=== PATIENT | male | born 1965 | race Two or more races ===

== ENCOUNTER 2016-09-10 15:12 | Emergency (ER) | payer MEDICAID ==
[~2016-09-10] VITALS: Ht 167.6 cm; Wt 110.0 kg
[2016-09-10 15:32] LABS: GLUCOSE,POINT OF CARE 210 MG/DL (70-110)
[2016-09-10 18:26] LABS: CALCIUM, TOTAL 7.5 mg/dL (8.8-10.5); CREATININE 4.12 mg/dL (0.60-1.30)
[2016-09-10] MEDS ORDERED: SODIUM POLYSTYRENE SULFONATE 15 GM/60 ML SUSPENSION BOTTLE PO ONE (20:15)
[2016-09-10] MEDS ORDERED: DEXTROSE 50%-WATER 25 GM/50 ML SYRINGE IVP ONE ×2 (20:15→21:00)
[2016-09-10] MEDS ORDERED: SODIUM BICARBONATE [ADULT] 8.4% 50 MEQ/50 ML SYRINGE IVP ONE (20:15)
[2016-09-10] MEDS ORDERED: CALCIUM GLUCONATE 1,000 MG in DEXTROSE 5%-WATER 50 ML IV ONE (20:15)
[2016-09-10] MEDS ORDERED: INSULIN REGULAR, HUMAN 100 UNITS/ML IVP ONE (20:15)
[2016-09-10 20:41] LABS: GLUCOSE COMMENT 1 Doctor Notified; GLUCOSE,POINT OF CARE 118 MG/DL (70-110)
[2016-09-10] MEDS ORDERED: ALBUTEROL SULFATE 5 MG/ML 20 ML NEB SOLN [BULK] NEB ONE (21:45)
[2016-09-10 22:12] LABS: GLUCOSE,POINT OF CARE 75 MG/DL (70-110)
[2016-09-10 22:35] LABS: CREATININE 4.13 mg/dL (0.60-1.30); POTASSIUM 5.6 mmol/L (3.5-5.1)
[2016-09-10 22:55] VITALS: BP 140/86
== END 2016-09-10 23:11 | disposition home or self-care (01) ==
LOC: EMS 15:14
DX: E87.5 Hyperkalemia (principal); E11.22 Type 2 diabetes mellitus with diabetic chronic kidney disease; N18.6 End stage renal disease; Z99.2 Dependence on renal dialysis; Z79.82 Long term (current) use of aspirin
CPT/HCPCS: 36415; 80048; 82962; 93005; 94640; 96365; 96375; 99285; J0610; J1815; J3490; J7060; J7611

== ENCOUNTER → 2016-09-10 | Outpatient (CLI) | payer MEDICAID ==
[~2016-09-10] MED LIST: AMLO-511 PO; ASPI81 PO; CARV12 PO; GLIP5 PO; LISI-662 PO; PRAV20TA4 PO; SITA100 PO
[2016-09-10 12:20] LABS: BASOPHILS # (AUTO) 0.03 K/uL (0.00-0.20); BASOPHILS % (AUTO) 0.4 % (0.0-2.0); EOSINOPHILS # (AUTO) 0.34 K/uL (0.00-0.70); EOSINOPHILS % (AUTO) 3.81 % (1.0-6.0); HEMATOCRIT 32.5 % (41-53); HEMOGLOBIN 10.7 g/dL (13.5-17.5); LYMPHOCYTES # (AUTO) 1.7 K/uL (1.0-4.8); LYMPHOCYTES % (AUTO) 18.2 % (22.0-44.0); MEAN CORPUSCULAR HEMOGLOBIN 29.2 pg (26.0-34.0); MEAN CORPUSCULAR VOLUME 88 fL (80-100); MONOCYTES # (AUTO) 0.6 K/uL (0.1-1.0); MONOCYTES % (AUTO) 6.4 % (2.0-9.0); NEUTROPHILS # (AUTO) 6.4 K/uL (1.8-7.7); NEUTROPHILS % (AUTO) 71.2 % (40.0-70.0); PLATELET COUNT (AUTO) 215 K/uL (150-450); RED BLOOD CELL COUNT(AUTO) 3.67 MIL/uL (4.50-5.90); RED CELL DISTRIBUTION WIDTH 15.6 % (11.5-14.5); WHITE BLOOD COUNT (AUTO) 9.1 K/uL (4.5-11.0)
[2016-09-10 13:00] LABS: ADD UA MICROSCOPIC YES; APPEARANCE,URINE CLEAR (CLEAR); GLUCOSE, URINE (UA) 250 mg/dL (NEGATIVE); KETONES,URINE NEGATIVE (NEGATIVE); LEUKOCYTE ESTERASE ,URINE NEGATIVE (NEGATIVE); OCCULT BLOOD,URINE MODERATE (NEGATIVE); PH,URINE 6.5 (5.0-8.0); PROTEIN,URINE SEE CONFIRM (NEGATIVE)
[2016-09-10 13:01] LABS: SULFOSALICYLIC ACID,URINE 4+ (Negative)
[2016-09-10 13:02] LABS: WBC,URINE 0-2 /HPF (0-5)
[2016-09-10 13:03] LABS: SQUAMOUS EPITHELIAL CELL,UR Few /LPF (None Seen)
[2016-09-10 13:40] LABS: ALBUMIN 1.8 g/dL (3.4-5.0); CALCIUM, TOTAL 7.7 mg/dL (8.8-10.5); CREATININE 3.84 mg/dL (0.60-1.30); MAGNESIUM 2.8 mg/dL (1.80-2.40); PHOSPHORUS 5.8 mg/dL (2.5-4.9)
[2016-09-10 13:56] LABS: POTASSIUM 6.1 mmol/L (3.5-5.1)
[2016-09-11 13:06] LABS: CREATININE, URINE (mALB) 77.9 mg/dL (Not Estab.)
== END | disposition home or self-care (01) ==
LOC: LABPV 09:25
PROVIDERS: ATTEND Internal Medicine Nephrology
DX: I12.9 Hypertensive chronic kidney disease with stage 1 through stage 4 chronic kidney disease, or unspecified chronic kidney disease (principal); N18.4 Chronic kidney disease, stage 4 (severe); E11.9 Type 2 diabetes mellitus without complications; B18.2 Chronic viral hepatitis C
CPT/HCPCS: 82043; 82570; 82728; 83540; 83550; 83735; 84156

== ENCOUNTER → 2016-10-10 | Outpatient (CLI) | payer MEDICAID ==
[2016-10-10 13:49] LABS: BASOPHILS # (AUTO) 0.04 K/uL (0.00-0.20); BASOPHILS % (AUTO) 0.4 % (0.0-2.0); EOSINOPHILS # (AUTO) 0.32 K/uL (0.00-0.70); EOSINOPHILS % (AUTO) 3.62 % (1.0-6.0); HEMATOCRIT 32.1 % (41-53); HEMOGLOBIN 10.7 g/dL (13.5-17.5); LYMPHOCYTES # (AUTO) 1.6 K/uL (1.0-4.8); LYMPHOCYTES % (AUTO) 17.5 % (22.0-44.0); MEAN CORPUSCULAR HEMOGLOBIN 29.4 pg (26.0-34.0); MEAN CORPUSCULAR HGB CONC 33.3 G/dL (31.0-37.0); MEAN CORPUSCULAR VOLUME 88 fL (80-100); MONOCYTES # (AUTO) 0.5 K/uL (0.1-1.0); MONOCYTES % (AUTO) 5.6 % (2.0-9.0); NEUTROPHILS # (AUTO) 6.5 K/uL (1.8-7.7); NEUTROPHILS % (AUTO) 72.9 % (40.0-70.0); PLATELET COUNT (AUTO) 214 K/uL (150-450); RED BLOOD CELL COUNT(AUTO) 3.64 MIL/uL (4.50-5.90); RED CELL DISTRIBUTION WIDTH 14.9 % (11.5-14.5)
[2016-10-10 14:00] LABS: APPEARANCE,URINE CLEAR (CLEAR); GLUCOSE, URINE (UA) 500 mg/dL (NEGATIVE); KETONES,URINE NEGATIVE (NEGATIVE); LEUKOCYTE ESTERASE ,URINE NEGATIVE (NEGATIVE); OCCULT BLOOD,URINE MODERATE (NEGATIVE); PH,URINE 6.5 (5.0-8.0); PROTEIN,URINE SEE CONFIRM (NEGATIVE)
[2016-10-10 14:03] LABS: HEMOGLOBIN A1C 6.5 % (4.5-6.2)
[2016-10-10 14:07] LABS: ADD UA MICROSCOPIC YES
[2016-10-10 14:08] LABS: ALBUMIN 1.6 g/dL (3.4-5.0); CALCIUM, TOTAL 7.7 mg/dL (8.8-10.5); CREATININE 5.11 mg/dL (0.60-1.30); MAGNESIUM 2.3 mg/dL (1.80-2.40); PHOSPHORUS 5.7 mg/dL (2.5-4.9); POTASSIUM 5.1 mmol/L (3.5-5.1)
[2016-10-10 14:11] LABS: SULFOSALICYLIC ACID,URINE 4+ (Negative); WBC,URINE 0-2 /HPF (0-5)
[2016-10-10 14:14] LABS: SQUAMOUS EPITHELIAL CELL,UR Rare /LPF (None Seen)
[2016-10-10 14:15] LABS: HYALINE CASTS, URINE 0-2 /LPF (None Seen)
[2016-10-11 18:18] LABS: CREATININE, URINE (mALB) 80.8 mg/dL (Not Estab.)
== END | disposition home or self-care (01) ==
LOC: LABPV 11:52
PROVIDERS: ATTEND Internal Medicine Nephrology
DX: I12.9 Hypertensive chronic kidney disease with stage 1 through stage 4 chronic kidney disease, or unspecified chronic kidney disease (principal); N18.4 Chronic kidney disease, stage 4 (severe); E11.22 Type 2 diabetes mellitus with diabetic chronic kidney disease; B18.2 Chronic viral hepatitis C
CPT/HCPCS: 82043; 82570; 83036; 83735; 84156

== ENCOUNTER → 2016-10-17 | Outpatient (CLI) | payer MEDICAID ==
[2016-10-17 12:06] LABS: ALBUMIN 1.6 g/dL (3.4-5.0); CALCIUM, TOTAL 7.5 mg/dL (8.8-10.5); CREATININE 4.51 mg/dL (0.60-1.30); MAGNESIUM 2.4 mg/dL (1.80-2.40); PHOSPHORUS 5.4 mg/dL (2.5-4.9); POTASSIUM 4.7 mmol/L (3.5-5.1)
== END | disposition home or self-care (01) ==
LOC: LABPV 10:56
PROVIDERS: ATTEND Internal Medicine Nephrology
DX: E11.22 Type 2 diabetes mellitus with diabetic chronic kidney disease (principal); I12.9 Hypertensive chronic kidney disease with stage 1 through stage 4 chronic kidney disease, or unspecified chronic kidney disease; N18.4 Chronic kidney disease, stage 4 (severe); B18.2 Chronic viral hepatitis C
CPT/HCPCS: 83735

== ENCOUNTER → 2016-10-23 | Outpatient (CLI) | payer MEDICAID ==
[2016-10-23 12:38] LABS: ALBUMIN 1.6 g/dL (3.4-5.0); CALCIUM, TOTAL 7.9 mg/dL (8.8-10.5); CREATININE 4.72 mg/dL (0.60-1.30); PHOSPHORUS 6.1 mg/dL (2.5-4.9); POTASSIUM 4.8 mmol/L (3.5-5.1)
== END | disposition home or self-care (01) ==
LOC: LABPV 11:20
PROVIDERS: ATTEND Internal Medicine Nephrology
DX: I12.9 Hypertensive chronic kidney disease with stage 1 through stage 4 chronic kidney disease, or unspecified chronic kidney disease (principal); N18.4 Chronic kidney disease, stage 4 (severe); E11.22 Type 2 diabetes mellitus with diabetic chronic kidney disease

== ENCOUNTER → 2016-11-24 | Outpatient (CLI) | payer MEDICAID ==
[2016-11-25 12:34] LABS: BASOPHILS % (AUTO) 0.3 % (0.0-2.0); EOSINOPHILS % (AUTO) 3.5 % (1.0-6.0); HEMATOCRIT 33.2 % (41-53); HEMOGLOBIN 10.6 g/dL (13.5-17.5); LYMPHOCYTES # (AUTO) 1.8 K/uL (1.0-4.8); LYMPHOCYTES % (AUTO) 17.8 % (22.0-44.0); MEAN CORPUSCULAR HEMOGLOBIN 28.3 pg (26.0-34.0); MEAN CORPUSCULAR HGB CONC 31.9 G/dL (31.0-37.0); MEAN CORPUSCULAR VOLUME 89 fL (80-100); MONOCYTES # (AUTO) 0.6 K/uL (0.1-1.0); MONOCYTES % (AUTO) 5.9 % (2.0-9.0); NEUTROPHILS # (AUTO) 7.1 K/uL (1.8-7.7); NEUTROPHILS % (AUTO) 72.5 % (40.0-70.0); PLATELET COUNT (AUTO) 268 K/uL (150-450); RED BLOOD CELL COUNT(AUTO) 3.74 MIL/uL (4.50-5.90); RED CELL DISTRIBUTION WIDTH 15.1 % (11.5-14.5); WHITE BLOOD COUNT (AUTO) 9.9 K/uL (4.5-11.0)
[2016-11-25 12:38] LABS: ALBUMIN 2.2 g/dL (3.4-5.0); CALCIUM, TOTAL 8.3 mg/dL (8.8-10.5); CREATININE 4.68 mg/dL (0.60-1.30); MAGNESIUM 2.4 mg/dL (1.80-2.40); PHOSPHORUS 5.7 mg/dL (2.5-4.9); POTASSIUM 4.9 mmol/L (3.5-5.1)
[2016-11-25 12:41] LABS: APPEARANCE,URINE CLEAR (CLEAR); GLUCOSE, URINE (UA) 250 mg/dL (NEGATIVE); KETONES,URINE NEGATIVE (NEGATIVE); LEUKOCYTE ESTERASE ,URINE NEGATIVE (NEGATIVE); OCCULT BLOOD,URINE SMALL (NEGATIVE); PROTEIN,URINE SEE CONFIRM (NEGATIVE)
[2016-11-25 12:47] LABS: ADD UA MICROSCOPIC YES
[2016-11-25 12:49] LABS: SULFOSALICYLIC ACID,URINE 4+ (Negative)
[2016-11-25 12:50] LABS: SQUAMOUS EPITHELIAL CELL,UR Few /LPF (None Seen)
== END | disposition home or self-care (01) ==
LOC: LABPV 10:41
PROVIDERS: ATTEND Internal Medicine Nephrology
DX: E11.9 Type 2 diabetes mellitus without complications (principal); I10 Essential (primary) hypertension; B18.2 Chronic viral hepatitis C
CPT/HCPCS: 82570; 82575; 83735; 84156

== ENCOUNTER → 2016-12-17 | Outpatient (CLI) | payer MEDICAID ==
[2016-12-17 11:27] LABS: ADD UA MICROSCOPIC YES; APPEARANCE,URINE CLEAR (CLEAR); GLUCOSE, URINE (UA) 250 mg/dL (NEGATIVE); KETONES,URINE NEGATIVE (NEGATIVE); LEUKOCYTE ESTERASE ,URINE NEGATIVE (NEGATIVE); OCCULT BLOOD,URINE MODERATE (NEGATIVE); PROTEIN,URINE SEE CONFIRM (NEGATIVE)
[2016-12-17 11:29] LABS: SULFOSALICYLIC ACID,URINE 4+ (Negative)
[2016-12-17 11:31] LABS: HYALINE CASTS, URINE 0-2 /LPF (None Seen); SQUAMOUS EPITHELIAL CELL,UR Few /LPF (None Seen); WBC,URINE 0-2 /HPF (0-5)
[2016-12-17 11:35] LABS: BASOPHILS % (AUTO) 0.2 % (0.0-2.0); EOSINOPHILS % (AUTO) 3.9 % (1.0-6.0); HEMATOCRIT 34.2 % (41-53); HEMOGLOBIN 11.6 g/dL (13.5-17.5); LYMPHOCYTES # (AUTO) 1.3 K/uL (1.0-4.8); LYMPHOCYTES % (AUTO) 14.4 % (22.0-44.0); MEAN CORPUSCULAR HEMOGLOBIN 30.1 pg (26.0-34.0); MEAN CORPUSCULAR HGB CONC 33.9 G/dL (31.0-37.0); MEAN CORPUSCULAR VOLUME 89 fL (80-100); MONOCYTES # (AUTO) 0.4 K/uL (0.1-1.0); MONOCYTES % (AUTO) 4.9 % (2.0-9.0); NEUTROPHILS % (AUTO) 76.6 % (40.0-70.0); PLATELET COUNT (AUTO) 236 K/uL (150-450); RED BLOOD CELL COUNT(AUTO) 3.85 MIL/uL (4.50-5.90); WHITE BLOOD COUNT (AUTO) 9.1 K/uL (4.5-11.0)
[2016-12-17 12:58] LABS: ALBUMIN 2.3 g/dL (3.4-5.0); CALCIUM, TOTAL 8.3 mg/dL (8.8-10.5); CREATININE 4.5 mg/dL (0.60-1.30); MAGNESIUM 2.7 mg/dL (1.80-2.40); PHOSPHORUS 5.5 mg/dL (2.5-4.9); POTASSIUM 5.8 mmol/L (3.5-5.1)
[2016-12-18 16:15] LABS: CREATININE, URINE (mALB) 74.1 mg/dL (Not Estab.)
== END | disposition home or self-care (01) ==
LOC: LABPV 09:34
PROVIDERS: ATTEND Internal Medicine Nephrology
DX: E11.9 Type 2 diabetes mellitus without complications (principal); I10 Essential (primary) hypertension; B18.2 Chronic viral hepatitis C
CPT/HCPCS: 82043; 82570; 83735; 84156

== ENCOUNTER → 2017-01-29 | Outpatient (CLI) | payer MEDICAID ==
[2017-01-29 15:30] LABS: BASOPHILS % (AUTO) 0.3 % (0.0-2.0); EOSINOPHILS % (AUTO) 2.6 % (1.0-6.0); HEMATOCRIT 29.5 % (41-53); HEMOGLOBIN 10.1 g/dL (13.5-17.5); LYMPHOCYTES # (AUTO) 1.9 K/uL (1.0-4.8); LYMPHOCYTES % (AUTO) 17.3 % (22.0-44.0); MEAN CORPUSCULAR HEMOGLOBIN 29.9 pg (26.0-34.0); MEAN CORPUSCULAR HGB CONC 34.2 G/dL (31.0-37.0); MEAN CORPUSCULAR VOLUME 88 fL (80-100); MONOCYTES # (AUTO) 0.6 K/uL (0.1-1.0); MONOCYTES % (AUTO) 5.6 % (2.0-9.0); NEUTROPHILS # (AUTO) 8.2 K/uL (1.8-7.7); NEUTROPHILS % (AUTO) 74.2 % (40.0-70.0); PLATELET COUNT (AUTO) 238 K/uL (150-450); RED BLOOD CELL COUNT(AUTO) 3.37 MIL/uL (4.50-5.90); RED CELL DISTRIBUTION WIDTH 14.3 % (11.5-14.5); WHITE BLOOD COUNT (AUTO) 11.1 K/uL (4.5-11.0)
[2017-01-29 15:39] LABS: APPEARANCE,URINE CLOUDY (CLEAR); GLUCOSE, URINE (UA) 500 mg/dL (NEGATIVE); KETONES,URINE NEGATIVE (NEGATIVE); LEUKOCYTE ESTERASE ,URINE NEGATIVE (NEGATIVE); OCCULT BLOOD,URINE SMALL (NEGATIVE); PROTEIN,URINE SEE CONFIRM (NEGATIVE)
[2017-01-29 15:42] LABS: ADD UA MICROSCOPIC YES
[2017-01-29 15:53] LABS: ALBUMIN 2.6 g/dL (3.4-5.0); CALCIUM, TOTAL 8.3 mg/dL (8.8-10.5); CREATININE 5.2 mg/dL (0.60-1.30); MAGNESIUM 2.5 mg/dL (1.80-2.40); PHOSPHORUS 5.5 mg/dL (2.5-4.9); POTASSIUM 5.1 mmol/L (3.5-5.1)
[2017-01-29 16:02] LABS: SULFOSALICYLIC ACID,URINE 3+ (Negative)
[2017-01-29 16:04] LABS: HYALINE CASTS, URINE 0-2 /LPF (None Seen)
[2017-01-29 16:05] LABS: SQUAMOUS EPITHELIAL CELL,UR Few /LPF (None Seen)
[2017-01-29 16:06] LABS: URINALYSIS COMMENT Moderate Sperm seen.
== END | disposition home or self-care (01) ==
LOC: LABPV 14:01
PROVIDERS: ATTEND Internal Medicine Nephrology
DX: E11.22 Type 2 diabetes mellitus with diabetic chronic kidney disease (principal); I12.9 Hypertensive chronic kidney disease with stage 1 through stage 4 chronic kidney disease, or unspecified chronic kidney disease; N18.4 Chronic kidney disease, stage 4 (severe)
CPT/HCPCS: 83735

== ENCOUNTER 2017-03-01 12:47 | Inpatient (IN) | payer MEDICAID ==
[~2017-03-01] VITALS: Ht 170.2 cm; Wt 119.0 kg
[2017-03-01 13:02] LABS: GLUCOSE,POINT OF CARE 303 MG/DL (70-110)
[2017-03-01 13:21] LABS: BASOPHILS % (AUTO) 0.3 % (0.0-2.0); EOSINOPHILS % (AUTO) 2.8 % (1.0-6.0); LYMPHOCYTES # (AUTO) 1.4 K/uL (1.0-4.8); LYMPHOCYTES % (AUTO) 14.8 % (22.0-44.0); MEAN CORPUSCULAR HEMOGLOBIN 30.7 pg (26.0-34.0); MEAN CORPUSCULAR HGB CONC 34.3 G/dL (31.0-37.0); MEAN CORPUSCULAR VOLUME 89 fL (80-100); MONOCYTES # (AUTO) 0.4 K/uL (0.1-1.0); NEUTROPHILS # (AUTO) 7.7 K/uL (1.8-7.7); NEUTROPHILS % (AUTO) 78.1 % (40.0-70.0); PLATELET COUNT (AUTO) 210 K/uL (150-450); WHITE BLOOD COUNT (AUTO) 9.8 K/uL (4.5-11.0)
[2017-03-01 13:28] LABS: HEMOGLOBIN 5.2 g/dL (13.5-17.5)
[2017-03-01 13:29] LABS: HEMATOCRIT 15.2 % (41-53)
[2017-03-01 13:35] LABS: PROTHROMBIN TIME 10.3 SEC (9.4-11.6)
[2017-03-01 13:43] LABS: B-TYPE NATRIURETIC PEPTIDE 91 pg/mL (0-100)
[2017-03-01 13:59] LABS: ALANINE AMINOTRANSFERASE 18 U/L (12-78); ALBUMIN 2.4 g/dL (3.4-5.0); ANION GAP 11 mmol/L (8-16); ASPARTATE AMINOTRANSFERASE 14 U/L (15-37); BILIRUBIN,TOTAL 0.2 mg/dL (0.1-1.0); CALCIUM, TOTAL 7.5 mg/dL (8.8-10.5); CARBON DIOXIDE 22 mmol/L (22-29); CHLORIDE 104 mmol/L (98-107); CREATINE KINASE MB 3.5 ng/mL (0-5); CREATINE KINASE, TOTAL 253 U/L (39-308); CREATININE 4.52 mg/dL (0.60-1.30); GLOMERULAR FILTR. RATE CALC 14 mL/min (>60); SODIUM SERUM 137 mmol/L (136-145); UREA NITROGEN, BLOOD 60 mg/dL (7-18)
[2017-03-01 14:02] LABS: POTASSIUM 6.2 mmol/L (3.5-5.1)
[2017-03-01] MEDS ORDERED: SODIUM BICARBONATE [ADULT] 8.4% 50 MEQ/50 ML SYRINGE IVP ONE (14:30)
[2017-03-01] MEDS ORDERED: SODIUM POLYSTYRENE SULFONATE 15 GM/60 ML SUSPENSION BOTTLE PO ONE (14:30)
[2017-03-01] MEDS ORDERED: ALBUTEROL SULFATE 2.5 MG/0.5 ML NEB SOLUTION NEB ONE (14:30)
[2017-03-01] MEDS ORDERED: INSULIN REGULAR, HUMAN 100 UNITS/ML IVP ONE (14:30)
[2017-03-01 14:34] LABS: APPEARANCE,URINE CLEAR (CLEAR); GLUCOSE, URINE (UA) 500 mg/dL (NEGATIVE); KETONES,URINE NEGATIVE (NEGATIVE); LEUKOCYTE ESTERASE ,URINE NEGATIVE (NEGATIVE); OCCULT BLOOD,URINE TRACE (NEGATIVE); PROTEIN,URINE SEE CONFIRM (NEGATIVE)
[2017-03-01] MEDS ORDERED: 0.9% SODIUM CHLORIDE 5 ML NEB SOLUTION NEB ONE (14:43)
[2017-03-01 14:46] LABS: ADD UA MICROSCOPIC YES
[2017-03-01 14:47] LABS: SULFOSALICYLIC ACID,URINE 3+ (Negative)
[2017-03-01 14:48] LABS: COARSE GRANULAR CASTS,URINE 0-2 /LPF (None Seen); FINE GRANULAR CASTS,URINE 0-2 /LPF (None Seen); RBC,URINE 0-2 /HPF (0-2); SQUAMOUS EPITHELIAL CELL,UR Few /LPF (None Seen); WBC,URINE 0-2 /HPF (0-5)
[2017-03-01] MEDS ORDERED: PANTOPRAZOLE SODIUM 80 MG in SODIUM CHLORIDE 0.9% 50 ML IV ONE (17:30)
[2017-03-01] MEDS ORDERED: PANTOPRAZOLE SODIUM 80 MG in SODIUM CHLORIDE 0.9% 100 ML IV SCH (17:30)
[2017-03-01 17:35] VITALS: BP 109/51
[2017-03-01 17:50] VITALS: BP 137/67
[2017-03-01 18:05] VITALS: BP 130/70
[2017-03-01] MEDS ORDERED: ONDANSETRON HCL 4 MG/2 ML VIAL IVP PRN (18:30)
[2017-03-01] MEDS ORDERED: 0.9% SODIUM CHLORIDE 10 ML SYRINGE IVP PRN (18:30)
[2017-03-01] MEDS ORDERED: ACETAMINOPHEN 325 MG TABLET PO PRN (18:30)
[2017-03-01 20:16] VITALS: BP 112/61
[2017-03-01 23:48] VITALS: BP 129/77
[2017-03-02] VITALS (15 sets, daily range): BP systolic 134–184; BP diastolic 68–120
[2017-03-02] MEDS ORDERED: PROPOFOL 1% 20 ML VIAL IVP ONE (00:44)
[2017-03-02] MEDS ORDERED: ONDANSETRON HCL 4 MG/2 ML VIAL IVP PRN (01:00)
[2017-03-02] MEDS ORDERED: ACETAMINOPHEN 325 MG TABLET PO PRN (01:00)
[2017-03-02] MEDS ORDERED: IPRATROPIUM BROMIDE 0.5 MG/2.5 ML NEB SOLUTION NEB PRN (01:00)
[2017-03-02] MEDS ORDERED: MAGNESIUM HYDROXIDE SUSPENSION 30 ML UDCUP PO PRN (01:00)
[2017-03-02] MEDS ORDERED: HYDROCODONE/ACETAMINOPHEN 5-325 MG TABLET PO PRN (01:00)
[2017-03-02] MEDS ORDERED: BISACODYL 10 MG RECTAL RECTAL SUPPOSITORY PR PRN (01:00)
[2017-03-02] MEDS ORDERED: ALBUTEROL SULFATE 2.5 MG/0.5 ML NEB SOLUTION NEB PRN (01:00)
[2017-03-02] MEDS ORDERED: MORPHINE SULFATE 2 MG/ML SYRINGE IVP PRN (01:00)
[2017-03-02] MEDS ORDERED: ZOLPIDEM TARTRATE 5 MG TABLET PO PRN (01:00)
[2017-03-02] MEDS ORDERED: PNEUMOCOCCAL VACCINE POLYVALENT 0.5 ML VIAL [PPSV23] IM ONE (02:00)
[2017-03-02] MEDS ORDERED: PANTOPRAZOLE SODIUM 80 MG in SODIUM CHLORIDE 0.9% 100 ML IV SCH (03:30)
[2017-03-02] MEDS ORDERED: SODIUM CHLORIDE 0.9% 250 ML IV ONE (04:49)
[2017-03-02 06:06] LABS: BASOPHILS % (AUTO) 0.2 % (0.0-2.0); EOSINOPHILS % (AUTO) 1.9 % (1.0-6.0); LYMPHOCYTES # (AUTO) 1.4 K/uL (1.0-4.8); LYMPHOCYTES % (AUTO) 16.2 % (22.0-44.0); MEAN CORPUSCULAR HEMOGLOBIN 30.3 pg (26.0-34.0); MEAN CORPUSCULAR HGB CONC 33.8 G/dL (31.0-37.0); MEAN CORPUSCULAR VOLUME 90 fL (80-100); MONOCYTES # (AUTO) 0.5 K/uL (0.1-1.0); MONOCYTES % (AUTO) 5.6 % (2.0-9.0); NEUTROPHILS # (AUTO) 6.8 K/uL (1.8-7.7); NEUTROPHILS % (AUTO) 76.1 % (40.0-70.0); PLATELET COUNT (AUTO) 199 K/uL (150-450); RED BLOOD CELL COUNT(AUTO) 2.17 MIL/uL (4.50-5.90); RED CELL DISTRIBUTION WIDTH 15.1 % (11.5-14.5); WHITE BLOOD COUNT (AUTO) 8.9 K/uL (4.5-11.0)
[2017-03-02 06:18] LABS: ALBUMIN 2.5 g/dL (3.4-5.0); BILIRUBIN,TOTAL 0.3 mg/dL (0.1-1.0); CALCIUM, TOTAL 7.2 mg/dL (8.8-10.5); CREATININE 4.79 mg/dL (0.60-1.30)
[2017-03-02] MEDS ORDERED: GlipiZIDE 5 MG TABLET PO SCH (06:30)
[2017-03-02 06:42] LABS: HEMATOCRIT 19.4 % (41-53); HEMOGLOBIN 6.6 g/dL (13.5-17.5)
[2017-03-02] MEDS ORDERED: SitaGLIPtin PHOSPHATE 100 MG TABLET PO SCH (09:00)
[2017-03-02] MEDS ORDERED: PANTOPRAZOLE SODIUM 40 MG/VIAL IVP SCH (09:00)
[2017-03-02] MEDS: DOCUSATE SODIUM 100 MG CAPSULE PO SCH ×2 (09:00→21:08)
[2017-03-02 10:34] LABS: BASOPHILS # (AUTO) 0.02 K/uL (0.00-0.20); BASOPHILS % (AUTO) 0.2 % (0.0-2.0); EOSINOPHILS # (AUTO) 0.14 K/uL (0.00-0.70); EOSINOPHILS % (AUTO) 1.49 % (1.0-6.0); HEMOGLOBIN 7.2 g/dL (13.5-17.5); LYMPHOCYTES # (AUTO) 1.4 K/uL (1.0-4.8); LYMPHOCYTES % (AUTO) 15.5 % (22.0-44.0); MEAN CORPUSCULAR HEMOGLOBIN 30.5 pg (26.0-34.0); MEAN CORPUSCULAR HGB CONC 34.4 G/dL (31.0-37.0); MEAN CORPUSCULAR VOLUME 89 fL (80-100); MONOCYTES # (AUTO) 0.7 K/uL (0.1-1.0); MONOCYTES % (AUTO) 7.9 % (2.0-9.0); NEUTROPHILS # (AUTO) 6.9 K/uL (1.8-7.7); PLATELET COUNT (AUTO) 208 K/uL (150-450); RED BLOOD CELL COUNT(AUTO) 2.36 MIL/uL (4.50-5.90); RED CELL DISTRIBUTION WIDTH 14.9 % (11.5-14.5); WHITE BLOOD COUNT (AUTO) 9.2 K/uL (4.5-11.0)
[2017-03-02 10:37] LABS: HEMATOCRIT 20.9 % (41-53)
[2017-03-02] MEDS: LISINOPRIL 20 MG TABLET PO SCH (12:01)
[2017-03-02] MEDS: AmLODIPine BESYLATE 5 MG TABLET PO SCH (12:01)
[2017-03-02] MEDS ORDERED: SODIUM CHLORIDE 0.9% 1,000 ML IV ONE ×2 (13:30→13:38)
[2017-03-02] MEDS: DEXTROSE 5%-0.45% SODIUM CHL 1,000 ML IV SCH (14:10)
[2017-03-02] MEDS ORDERED: PRAVASTATIN SODIUM 20 MG TABLET PO SCH (21:00)
[2017-03-02] MEDS: PANTOPRAZOLE SODIUM 40 MG/VIAL IVP SCH (21:08)
[2017-03-03 00:13] VITALS: BP 167/90
[2017-03-03] MEDS: DEXTROSE 5%-0.45% SODIUM CHL 1,000 ML IV SCH (02:17)
[2017-03-03 05:24] VITALS: BP 154/93
[2017-03-03 05:51] LABS: BASOPHILS % (AUTO) 0.2 % (0.0-2.0); EOSINOPHILS % (AUTO) 2.7 % (1.0-6.0); HEMATOCRIT 22.2 % (41-53); HEMOGLOBIN 7.5 g/dL (13.5-17.5); LYMPHOCYTES # (AUTO) 1.5 K/uL (1.0-4.8); LYMPHOCYTES % (AUTO) 18.5 % (22.0-44.0); MEAN CORPUSCULAR HEMOGLOBIN 30.2 pg (26.0-34.0); MEAN CORPUSCULAR HGB CONC 33.8 G/dL (31.0-37.0); MEAN CORPUSCULAR VOLUME 89 fL (80-100); MONOCYTES # (AUTO) 0.5 K/uL (0.1-1.0); MONOCYTES % (AUTO) 6.5 % (2.0-9.0); NEUTROPHILS # (AUTO) 5.9 K/uL (1.8-7.7); NEUTROPHILS % (AUTO) 72.1 % (40.0-70.0); PLATELET COUNT (AUTO) 211 K/uL (150-450); RED BLOOD CELL COUNT(AUTO) 2.48 MIL/uL (4.50-5.90); RED CELL DISTRIBUTION WIDTH 15.4 % (11.5-14.5); WHITE BLOOD COUNT (AUTO) 8.2 K/uL (4.5-11.0)
[2017-03-03 06:08] LABS: ALBUMIN 2.4 g/dL (3.4-5.0); BILIRUBIN,TOTAL 0.2 mg/dL (0.1-1.0); CALCIUM, TOTAL 7.4 mg/dL (8.8-10.5); CREATININE 4.31 mg/dL (0.60-1.30); MAGNESIUM 2.9 mg/dL (1.80-2.40); PHOSPHORUS 5.9 mg/dL (2.5-4.9); POTASSIUM 5.2 mmol/L (3.5-5.1)
[2017-03-03 07:24] VITALS: BP 165/86
[2017-03-03] MEDS: AmLODIPine BESYLATE 5 MG TABLET PO SCH (08:13)
[2017-03-03] MEDS: LISINOPRIL 20 MG TABLET PO SCH (08:13)
[2017-03-03] MEDS: DOCUSATE SODIUM 100 MG CAPSULE PO SCH (08:14)
[2017-03-03] MEDS: PANTOPRAZOLE SODIUM 40 MG/VIAL IVP SCH (08:14)
[2017-03-03 12:02] VITALS: BP 162/82
[2017-03-03 15:10] VITALS: BP 169/81
[2017-03-03 20:12] LABS: GLUCOSE,POINT OF CARE 303 MG/DL (70-110)
[2017-03-05 04:52] LABS: GLUCOSE COMMENT 1 Received Meds; GLUCOSE,POINT OF CARE 77 MG/DL (70-110)
[2017-03-05 04:52] LABS: GLUCOSE,POINT OF CARE 62 MG/DL (70-110)
[2017-03-05 04:52] LABS: GLUCOSE COMMENT 1 Received Meds; GLUCOSE,POINT OF CARE 131 MG/DL (70-110)
== END 2017-03-03 16:00 | disposition home or self-care (01) | DRG 253 ==
LOC: EMS 12:48 → 5S 17:52
PROVIDERS: ADMIT Hospitalist; ATTEND Hospitalist
PROC: 30233N1 Transfusion of Nonautologous Red Blood Cells into Peripheral Vein, Percutaneous Approach (ICD-10-PCS; 2017-03-01)
PROC: 0DB68ZX Excision of Stomach, Via Natural or Artificial Opening Endoscopic, Diagnostic (ICD-10-PCS; principal; 2017-03-02 15:00)
DX: K92.2 Gastrointestinal hemorrhage, unspecified (principal); E43 Unspecified severe protein-calorie malnutrition; N18.6 End stage renal disease; E11.21 Type 2 diabetes mellitus with diabetic nephropathy; D50.0 Iron deficiency anemia secondary to blood loss (chronic); E87.5 Hyperkalemia; E11.22 Type 2 diabetes mellitus with diabetic chronic kidney disease; E11.319 Type 2 diabetes mellitus with unspecified diabetic retinopathy without macular edema; E11.65 Type 2 diabetes mellitus with hyperglycemia; E78.5 Hyperlipidemia, unspecified; I12.9 Hypertensive chronic kidney disease with stage 1 through stage 4 chronic kidney disease, or unspecified chronic kidney disease; Z87.891 Personal history of nicotine dependence; B19.20 Unspecified viral hepatitis C without hepatic coma; M54.30 Sciatica, unspecified side; K92.1 Melena; Z79.82 Long term (current) use of aspirin; Z79.899 Other long term (current) drug therapy; Z68.41 Body mass index [BMI] 40.0-44.9, adult
CPT/HCPCS: 82271; 82962; 83735; 84100; 86850; 86900; 86901; 86920; 88300; 88305; 88312; 90471; 93005; 94640; 96365; 96366; 96374; 96375; 99291; C9113; J1815; J2704; J3490; J7030; J7050; P9016

== ENCOUNTER → 2017-03-13 | Outpatient (CLI) | payer MEDICAID ==
[~2017-03-13] MED LIST changes: -ASPI81 PO
[2017-03-13 12:02] LABS: BASOPHILS % (AUTO) 0.3 % (0.0-2.0); EOSINOPHILS % (AUTO) 2.6 % (1.0-6.0); HEMATOCRIT 25.1 % (41-53); HEMOGLOBIN 8.4 g/dL (13.5-17.5); LYMPHOCYTES # (AUTO) 1.8 K/uL (1.0-4.8); LYMPHOCYTES % (AUTO) 18.9 % (22.0-44.0); MEAN CORPUSCULAR HEMOGLOBIN 30.2 pg (26.0-34.0); MEAN CORPUSCULAR HGB CONC 33.7 G/dL (31.0-37.0); MEAN CORPUSCULAR VOLUME 90 fL (80-100); MONOCYTES # (AUTO) 0.7 K/uL (0.1-1.0); NEUTROPHILS # (AUTO) 6.8 K/uL (1.8-7.7); NEUTROPHILS % (AUTO) 71.2 % (40.0-70.0); PLATELET COUNT (AUTO) 247 K/uL (150-450); RED CELL DISTRIBUTION WIDTH 14.8 % (11.5-14.5); WHITE BLOOD COUNT (AUTO) 9.6 K/uL (4.5-11.0)
[2017-03-13 12:29] LABS: ALBUMIN 2.5 g/dL (3.4-5.0); CALCIUM, TOTAL 8.1 mg/dL (8.8-10.5); CREATININE 4.3 mg/dL (0.60-1.30); MAGNESIUM 2.2 mg/dL (1.80-2.40); PHOSPHORUS 5.2 mg/dL (2.5-4.9); POTASSIUM 4.9 mmol/L (3.5-5.1)
== END | disposition home or self-care (01) ==
LOC: LABPV 10:21
PROVIDERS: ATTEND Internal Medicine Nephrology
DX: I12.9 Hypertensive chronic kidney disease with stage 1 through stage 4 chronic kidney disease, or unspecified chronic kidney disease (principal); E11.22 Type 2 diabetes mellitus with diabetic chronic kidney disease; N18.4 Chronic kidney disease, stage 4 (severe); B18.2 Chronic viral hepatitis C
CPT/HCPCS: 83735

== ENCOUNTER → 2017-03-25 | Outpatient (CLI) | payer MEDICAID ==
[2017-03-25 11:12] LABS: BASOPHILS # (AUTO) 0.02 K/uL (0.00-0.20); BASOPHILS % (AUTO) 0.2 % (0.0-2.0); HEMATOCRIT 25.7 % (41-53); HEMOGLOBIN 8.8 g/dL (13.5-17.5); LYMPHOCYTES # (AUTO) 1.6 K/uL (1.0-4.8); LYMPHOCYTES % (AUTO) 17.1 % (22.0-44.0); MEAN CORPUSCULAR HEMOGLOBIN 30.3 pg (26.0-34.0); MEAN CORPUSCULAR HGB CONC 34.1 G/dL (31.0-37.0); MEAN CORPUSCULAR VOLUME 89 fL (80-100); MONOCYTES # (AUTO) 0.6 K/uL (0.1-1.0); MONOCYTES % (AUTO) 6.8 % (2.0-9.0); NEUTROPHILS # (AUTO) 6.7 K/uL (1.8-7.7); NEUTROPHILS % (AUTO) 72.8 % (40.0-70.0); PLATELET COUNT (AUTO) 276 K/uL (150-450); RED BLOOD CELL COUNT(AUTO) 2.89 MIL/uL (4.50-5.90); RED CELL DISTRIBUTION WIDTH 14.4 % (11.5-14.5); WHITE BLOOD COUNT (AUTO) 9.2 K/uL (4.5-11.0)
[2017-03-25 11:14] LABS: APPEARANCE,URINE CLEAR (CLEAR); GLUCOSE, URINE (UA) 250 mg/dL (NEGATIVE); KETONES,URINE NEGATIVE (NEGATIVE); LEUKOCYTE ESTERASE ,URINE NEGATIVE (NEGATIVE); OCCULT BLOOD,URINE SMALL (NEGATIVE); PH,URINE 6.5 (5.0-8.0); PROTEIN,URINE SEE CONFIRM (NEGATIVE)
[2017-03-25 11:24] LABS: ADD UA MICROSCOPIC YES; WBC,URINE None Seen /HPF (0-5)
[2017-03-25 11:25] LABS: SULFOSALICYLIC ACID,URINE 3+ (Negative)
[2017-03-25 11:36] LABS: ALBUMIN 2.6 g/dL (3.4-5.0); BILIRUBIN,TOTAL 0.1 mg/dL (0.1-1.0); CALCIUM, TOTAL 8.4 mg/dL (8.8-10.5); CREATININE 4.4 mg/dL (0.60-1.30); MAGNESIUM 2.8 mg/dL (1.80-2.40); PHOSPHORUS 5.2 mg/dL (2.5-4.9); POTASSIUM 5.1 mmol/L (3.5-5.1)
[2017-03-26 12:16] LABS: CREATININE, URINE (mALB) 83.9 mg/dL (Not Estab.)
== END | disposition home or self-care (01) ==
LOC: LABPV 10:19
PROVIDERS: ATTEND Internal Medicine Nephrology
DX: E11.22 Type 2 diabetes mellitus with diabetic chronic kidney disease (principal); I12.9 Hypertensive chronic kidney disease with stage 1 through stage 4 chronic kidney disease, or unspecified chronic kidney disease; N18.4 Chronic kidney disease, stage 4 (severe); B18.2 Chronic viral hepatitis C
CPT/HCPCS: 82043; 82570; 83735; 84100

== ENCOUNTER → 2017-04-20 | Outpatient (CLI) | payer MEDICAID ==
[2017-04-20 12:29] LABS: BASOPHILS # (AUTO) 0.02 K/uL (0.00-0.20); BASOPHILS % (AUTO) 0.2 % (0.0-2.0); EOSINOPHILS # (AUTO) 0.22 K/uL (0.00-0.70); EOSINOPHILS % (AUTO) 2.28 % (1.0-6.0); HEMATOCRIT 27.3 % (41-53); HEMOGLOBIN 9.1 g/dL (13.5-17.5); LYMPHOCYTES # (AUTO) 1.3 K/uL (1.0-4.8); LYMPHOCYTES % (AUTO) 13.7 % (22.0-44.0); MEAN CORPUSCULAR HEMOGLOBIN 29.8 pg (26.0-34.0); MEAN CORPUSCULAR HGB CONC 33.2 G/dL (31.0-37.0); MEAN CORPUSCULAR VOLUME 90 fL (80-100); MONOCYTES # (AUTO) 0.3 K/uL (0.1-1.0); MONOCYTES % (AUTO) 3.4 % (2.0-9.0); NEUTROPHILS # (AUTO) 7.8 K/uL (1.8-7.7); NEUTROPHILS % (AUTO) 80.4 % (40.0-70.0); PLATELET COUNT (AUTO) 268 K/uL (150-450); RED BLOOD CELL COUNT(AUTO) 3.04 MIL/uL (4.50-5.90); RED CELL DISTRIBUTION WIDTH 14.6 % (11.5-14.5); WHITE BLOOD COUNT (AUTO) 9.8 K/uL (4.5-11.0)
== END | disposition home or self-care (01) ==
LOC: LABPV 11:12
PROVIDERS: ATTEND Internal Medicine Nephrology
DX: E11.22 Type 2 diabetes mellitus with diabetic chronic kidney disease (principal); I12.9 Hypertensive chronic kidney disease with stage 1 through stage 4 chronic kidney disease, or unspecified chronic kidney disease; N18.9 Chronic kidney disease, unspecified
CPT/HCPCS: 82728; 83540; 83550; 84466

== ENCOUNTER 2017-04-27 14:29 | Emergency (ER) | payer MEDICAID ==
[~2017-04-27] VITALS: Ht 170.2 cm; Wt 113.6 kg
[2017-04-27 14:52] LABS: GLUCOSE,POINT OF CARE 288 MG/DL (70-110)
[2017-04-27] MEDS ORDERED: ONDANSETRON HCL 4 MG/2 ML VIAL IVP ONE (17:15)
[2017-04-27] MEDS ORDERED: MORPHINE SULFATE 4 MG/ML SYRINGE IVP ONE (17:15)
[2017-04-27] MEDS ORDERED: HYDROmorphone 2 MG/ML SYRINGE IVP ONE (17:15)
[2017-04-27 17:21] LABS: BASOPHILS # (AUTO) 0.04 K/uL (0.00-0.20); BASOPHILS % (AUTO) 0.4 % (0.0-2.0); EOSINOPHILS # (AUTO) 0.23 K/uL (0.00-0.70); EOSINOPHILS % (AUTO) 2.49 % (1.0-6.0); HEMOGLOBIN 8.6 g/dL (13.5-17.5); LYMPHOCYTES # (AUTO) 1.7 K/uL (1.0-4.8); MEAN CORPUSCULAR HEMOGLOBIN 29.7 pg (26.0-34.0); MEAN CORPUSCULAR HGB CONC 33.3 G/dL (31.0-37.0); MEAN CORPUSCULAR VOLUME 89 fL (80-100); MONOCYTES # (AUTO) 0.4 K/uL (0.1-1.0); MONOCYTES % (AUTO) 4.3 % (2.0-9.0); NEUTROPHILS # (AUTO) 6.9 K/uL (1.8-7.7); NEUTROPHILS % (AUTO) 74.8 % (40.0-70.0); PLATELET COUNT (AUTO) 226 K/uL (150-450); RED BLOOD CELL COUNT(AUTO) 2.91 MIL/uL (4.50-5.90); RED CELL DISTRIBUTION WIDTH 14.8 % (11.5-14.5); WHITE BLOOD COUNT (AUTO) 9.2 K/uL (4.5-11.0)
[2017-04-27 17:31] LABS: APPEARANCE,URINE CLEAR (CLEAR); GLUCOSE, URINE (UA) >=1000 mg/dL (NEGATIVE); KETONES,URINE NEGATIVE (NEGATIVE); LEUKOCYTE ESTERASE ,URINE NEGATIVE (NEGATIVE); OCCULT BLOOD,URINE SMALL (NEGATIVE); PROTEIN,URINE SEE CONFIRM (NEGATIVE)
[2017-04-27 17:34] LABS: ADD UA MICROSCOPIC YES
[2017-04-27 17:45] LABS: B-TYPE NATRIURETIC PEPTIDE 86 pg/mL (0-100)
[2017-04-27 18:14] LABS: ALBUMIN 2.5 g/dL (3.4-5.0); ANION GAP 9 mmol/L (8-16); ASPARTATE AMINOTRANSFERASE 12 U/L (15-37); BILIRUBIN,TOTAL 0.2 mg/dL (0.1-1.0); CALCIUM, TOTAL 8.1 mg/dL (8.8-10.5); CARBON DIOXIDE 24 mmol/L (22-29); CHLORIDE 103 mmol/L (98-107); CREATINE KINASE MB 2.1 ng/mL (0-5); CREATINE KINASE, TOTAL 123 U/L (39-308); GLOMERULAR FILTR. RATE CALC 13 mL/min (>60); POTASSIUM 4.5 mmol/L (3.5-5.1); SODIUM SERUM 136 mmol/L (136-145); TOTAL PROTEIN, SERUM 6.8 g/dL (6.4-8.2); UREA NITROGEN, BLOOD 61 mg/dL (7-18)
[2017-04-27 18:14] LABS: SULFOSALICYLIC ACID,URINE 3+ (Negative)
[2017-04-27 18:15] LABS: COARSE GRANULAR CASTS,URINE 0-2 /LPF (None Seen)
[2017-04-27 18:16] LABS: SQUAMOUS EPITHELIAL CELL,UR Few /LPF (None Seen)
[2017-04-27 18:23] LABS: ALANINE AMINOTRANSFERASE 17 U/L (12-78)
[2017-04-27] MEDS ORDERED: SODIUM CHLORIDE 0.9% 1,000 ML IV ONE (18:30)
[2017-04-27] MEDS: INSULIN REGULAR, HUMAN 100 UNITS/ML IVP ONE ×2 (18:36→18:44)
[2017-04-27 18:47] LABS: GLUCOSE,POINT OF CARE 313 MG/DL (70-110)
[2017-04-27] MEDS ORDERED: INSULIN REGULAR, HUMAN 100 UNITS/ML IVP ONE (19:00)
[2017-04-27 19:26] VITALS: BP 124/66
[2017-04-27 19:52] LABS: GLUCOSE,POINT OF CARE 191 MG/DL (70-110)
== END 2017-04-27 19:42 | disposition home or self-care (01) ==
LOC: EMS 14:30
DX: S29.011A Strain of muscle and tendon of front wall of thorax, initial encounter (principal); I51.7 Cardiomegaly; E11.65 Type 2 diabetes mellitus with hyperglycemia; H65.93 Unspecified nonsuppurative otitis media, bilateral; I12.9 Hypertensive chronic kidney disease with stage 1 through stage 4 chronic kidney disease, or unspecified chronic kidney disease; E11.22 Type 2 diabetes mellitus with diabetic chronic kidney disease; N18.4 Chronic kidney disease, stage 4 (severe); F17.210 Nicotine dependence, cigarettes, uncomplicated; E66.9 Obesity, unspecified; Z68.39 Body mass index [BMI] 39.0-39.9, adult; X58.XXXA Exposure to other specified factors, initial encounter; Y93.89 Activity, other specified; Y92.89 Other specified places as the place of occurrence of the external cause; Y99.8 Other external cause status
CPT/HCPCS: 36415; 71020; 80053; 81001; 82550; 82553; 82962; 83880; 84484; 85025; 93005; 96361; 96374; 96375; 99285; J1170; J1815; J2270; J2405; J7030

== ENCOUNTER → 2017-05-15 | Outpatient (CLI) | payer MEDICAID ==
[2017-05-15 15:02] LABS: BASOPHILS % (AUTO) 0.4 % (0.0-2.0); EOSINOPHILS % (AUTO) 2.7 % (1.0-6.0); HEMATOCRIT 28.4 % (41-53); HEMOGLOBIN 9.7 g/dL (13.5-17.5); LYMPHOCYTES # (AUTO) 1.6 K/uL (1.0-4.8); MEAN CORPUSCULAR HEMOGLOBIN 29.9 pg (26.0-34.0); MEAN CORPUSCULAR HGB CONC 34.3 G/dL (31.0-37.0); MEAN CORPUSCULAR VOLUME 87 fL (80-100); MONOCYTES # (AUTO) 0.5 K/uL (0.1-1.0); MONOCYTES % (AUTO) 5.1 % (2.0-9.0); NEUTROPHILS # (AUTO) 7.2 K/uL (1.8-7.7); NEUTROPHILS % (AUTO) 74.8 % (40.0-70.0); PLATELET COUNT (AUTO) 244 K/uL (150-450); RED BLOOD CELL COUNT(AUTO) 3.26 MIL/uL (4.50-5.90); RED CELL DISTRIBUTION WIDTH 14.2 % (11.5-14.5)
[2017-05-15 15:09] LABS: APPEARANCE,URINE CLEAR (CLEAR); BILIRUBIN,URINE NEGATIVE (NEGATIVE); GLUCOSE, URINE (UA) 250 mg/dL (NEGATIVE); KETONES,URINE NEGATIVE (NEGATIVE); LEUKOCYTE ESTERASE ,URINE NEGATIVE (NEGATIVE); NITRATE,URINE NEGATIVE (NEGATIVE); OCCULT BLOOD,URINE SMALL (NEGATIVE); PH,URINE 6.5 (5.0-8.0); PROTEIN,URINE SEE CONFIRM (NEGATIVE); UROBILINOGEN,URINE 0.2 mg/dL (<=1.0)
[2017-05-15 15:19] LABS: CALCIUM, TOTAL 8.1 mg/dL (8.8-10.5); CREATININE 5.57 mg/dL (0.60-1.30); MAGNESIUM 2.9 mg/dL (1.80-2.40); PHOSPHORUS 6.3 mg/dL (2.5-4.9); POTASSIUM 5.7 mmol/L (3.5-5.1)
[2017-05-15 15:25] LABS: SULFOSALICYLIC ACID,URINE 3+ (Negative)
[2017-05-15 15:26] LABS: FINE GRANULAR CASTS,URINE 0-2 /LPF (None Seen); PROTEIN,URINE RANDOM 491 mg/dL (0-11.9); SQUAMOUS EPITHELIAL CELL,UR Few /LPF (None Seen)
[2017-05-15 15:28] LABS: BACTERIA,URINE Few /HPF (None Seen)
== END | disposition home or self-care (01) ==
LOC: LABPV 11:36
PROVIDERS: ATTEND Internal Medicine Nephrology
DX: E11.9 Type 2 diabetes mellitus without complications (principal); I10 Essential (primary) hypertension; B18.2 Chronic viral hepatitis C
CPT/HCPCS: 82043; 82570; 83735; 84156

== ENCOUNTER 2017-06-04 17:15 | Emergency (ER) | payer MEDICAID ==
[~2017-06-04] VITALS: Ht 170.2 cm; Wt 118.2 kg
[2017-06-04 17:32] LABS: GLUCOSE,POINT OF CARE 225 MG/DL (70-110)
[2017-06-04 18:15] LABS: BASOPHILS # (AUTO) 0.02 K/uL (0.00-0.20); BASOPHILS % (AUTO) 0.2 % (0.0-2.0); EOSINOPHILS # (AUTO) 0.23 K/uL (0.00-0.70); EOSINOPHILS % (AUTO) 2.74 % (1.0-6.0); HEMATOCRIT 26.3 % (41-53); HEMOGLOBIN 8.7 g/dL (13.5-17.5); LYMPHOCYTES # (AUTO) 1.6 K/uL (1.0-4.8); LYMPHOCYTES % (AUTO) 19.4 % (22.0-44.0); MEAN CORPUSCULAR HEMOGLOBIN 29.8 pg (26.0-34.0); MEAN CORPUSCULAR HGB CONC 33.3 G/dL (31.0-37.0); MEAN CORPUSCULAR VOLUME 89 fL (80-100); MONOCYTES # (AUTO) 0.7 K/uL (0.1-1.0); MONOCYTES % (AUTO) 8.8 % (2.0-9.0); NEUTROPHILS # (AUTO) 5.8 K/uL (1.8-7.7); NEUTROPHILS % (AUTO) 68.9 % (40.0-70.0); PLATELET COUNT (AUTO) 214 K/uL (150-450); RED BLOOD CELL COUNT(AUTO) 2.94 MIL/uL (4.50-5.90); WHITE BLOOD COUNT (AUTO) 8.4 K/uL (4.5-11.0)
[2017-06-04 18:22] LABS: CREATININE 4.65 mg/dL (0.60-1.30); POTASSIUM 5.6 mmol/L (3.5-5.1)
[2017-06-04 18:28] LABS: BILIRUBIN,TOTAL 0.3 mg/dL (0.1-1.0); TOTAL PROTEIN, SERUM 6.8 g/dL (6.4-8.2)
[2017-06-04] MEDS ORDERED: HYDROCODONE/ACETAMINOPHEN 5-325 MG TABLET PO ONE (19:15)
[2017-06-04 20:02] VITALS: BP 150/82
== END 2017-06-04 20:04 | disposition home or self-care (01) ==
LOC: EMS 17:17
DX: E87.5 Hyperkalemia (principal); E11.9 Type 2 diabetes mellitus without complications; Z87.891 Personal history of nicotine dependence
CPT/HCPCS: 82962; 93005; 99285

== ENCOUNTER → 2017-06-04 | Outpatient (CLI) | payer MEDICAID ==
[2017-06-04 11:57] LABS: EOSINOPHILS # (AUTO) 0.21 K/uL (0.00-0.70); EOSINOPHILS % (AUTO) 2.44 % (1.0-6.0); HEMATOCRIT 27.9 % (41-53); HEMOGLOBIN 9.1 g/dL (13.5-17.5); LYMPHOCYTES # (AUTO) 1.2 K/uL (1.0-4.8); LYMPHOCYTES % (AUTO) 13.8 % (22.0-44.0); MEAN CORPUSCULAR HEMOGLOBIN 29.5 pg (26.0-34.0); MEAN CORPUSCULAR HGB CONC 32.8 G/dL (31.0-37.0); MEAN CORPUSCULAR VOLUME 90 fL (80-100); MONOCYTES # (AUTO) 0.6 K/uL (0.1-1.0); MONOCYTES % (AUTO) 6.9 % (2.0-9.0); NEUTROPHILS # (AUTO) 6.7 K/uL (1.8-7.7); NEUTROPHILS % (AUTO) 76.9 % (40.0-70.0); PLATELET COUNT (AUTO) 207 K/uL (150-450); RED CELL DISTRIBUTION WIDTH 14.8 % (11.5-14.5); WHITE BLOOD COUNT (AUTO) 8.8 K/uL (4.5-11.0)
[2017-06-04 12:04] LABS: APPEARANCE,URINE CLEAR (CLEAR); GLUCOSE, URINE (UA) 250 mg/dL (NEGATIVE); KETONES,URINE NEGATIVE (NEGATIVE); LEUKOCYTE ESTERASE ,URINE NEGATIVE (NEGATIVE); OCCULT BLOOD,URINE TRACE (NEGATIVE); PH,URINE 6.5 (5.0-8.0); PROTEIN,URINE SEE CONFIRM (NEGATIVE)
[2017-06-04 12:06] LABS: CALCIUM, TOTAL 8.2 mg/dL (8.8-10.5); CREATININE 4.67 mg/dL (0.60-1.30); PHOSPHORUS 5.6 mg/dL (2.5-4.9)
[2017-06-04 12:08] LABS: HEMOGLOBIN A1C 8.8 % (4.5-6.2)
[2017-06-04 12:15] LABS: ADD UA MICROSCOPIC YES
[2017-06-04 12:22] LABS: RBC,URINE 0-2 /HPF (0-2); SULFOSALICYLIC ACID,URINE 3+ (Negative); WBC,URINE None Seen /HPF (0-5)
[2017-06-04 13:12] LABS: POTASSIUM 6.3 mmol/L (3.5-5.1)
[2017-06-05 15:49] LABS: CREATININE, URINE (mALB) 36.1 mg/dL (Not Estab.)
== END | disposition home or self-care (01) ==
LOC: LABPV 10:25
PROVIDERS: ATTEND Internal Medicine Nephrology
DX: R82.90 Unspecified abnormal findings in urine (principal); R73.09 Other abnormal glucose; R94.4 Abnormal results of kidney function studies; D63.1 Anemia in chronic kidney disease
CPT/HCPCS: 82043; 82570; 83036; 83735; 84156

== ENCOUNTER → 2017-07-13 | Outpatient (CLI) | payer MEDICAID ==
[2017-07-13 14:30] LABS: APPEARANCE,URINE CLEAR (CLEAR); BASOPHILS # (AUTO) 0.03 K/uL (0.00-0.20); BASOPHILS % (AUTO) 0.3 % (0.0-2.0); BILIRUBIN,URINE NEGATIVE (NEGATIVE); EOSINOPHILS # (AUTO) 0.27 K/uL (0.00-0.70); GLUCOSE, URINE (UA) 500 mg/dL (NEGATIVE); HEMATOCRIT 29.8 % (41-53); HEMOGLOBIN 9.9 g/dL (13.5-17.5); KETONES,URINE NEGATIVE (NEGATIVE); LEUKOCYTE ESTERASE ,URINE NEGATIVE (NEGATIVE); LYMPHOCYTES # (AUTO) 1.7 K/uL (1.0-4.8); LYMPHOCYTES % (AUTO) 17.1 % (22.0-44.0); MEAN CORPUSCULAR HEMOGLOBIN 29.5 pg (26.0-34.0); MEAN CORPUSCULAR HGB CONC 33.1 G/dL (31.0-37.0); MEAN CORPUSCULAR VOLUME 89 fL (80-100); MONOCYTES # (AUTO) 0.6 K/uL (0.1-1.0); MONOCYTES % (AUTO) 6.3 % (2.0-9.0); NEUTROPHILS # (AUTO) 7.3 K/uL (1.8-7.7); NEUTROPHILS % (AUTO) 73.6 % (40.0-70.0); NITRATE,URINE NEGATIVE (NEGATIVE); OCCULT BLOOD,URINE TRACE (NEGATIVE); PH,URINE 6.5 (5.0-8.0); PLATELET COUNT (AUTO) 217 K/uL (150-450); PROTEIN,URINE SEE CONFIRM (NEGATIVE); RED BLOOD CELL COUNT(AUTO) 3.35 MIL/uL (4.50-5.90); RED CELL DISTRIBUTION WIDTH 14.9 % (11.5-14.5); UROBILINOGEN,URINE 0.2 mg/dL (<=1.0)
[2017-07-13 14:39] LABS: ALBUMIN 2.7 g/dL (3.4-5.0); CREATININE 4.2 mg/dL (0.60-1.30); MAGNESIUM 2.4 mg/dL (1.80-2.40); PHOSPHORUS 4.1 mg/dL (2.5-4.9)
[2017-07-13 14:41] LABS: SULFOSALICYLIC ACID,URINE 3+ (Negative)
[2017-07-13 14:42] LABS: BACTERIA,URINE None Seen /HPF (None Seen); SQUAMOUS EPITHELIAL CELL,UR Few /LPF (None Seen); WBC,URINE 0-2 /HPF (0-5)
[2017-07-13 14:48] LABS: POTASSIUM 5.9 mmol/L (3.5-5.1)
== END | disposition home or self-care (01) ==
LOC: LABPV 13:52
PROVIDERS: ATTEND Internal Medicine Nephrology
DX: I12.9 Hypertensive chronic kidney disease with stage 1 through stage 4 chronic kidney disease, or unspecified chronic kidney disease (principal); E11.22 Type 2 diabetes mellitus with diabetic chronic kidney disease; N18.4 Chronic kidney disease, stage 4 (severe)
CPT/HCPCS: 82043; 82570; 83735

== ENCOUNTER → 2017-08-17 | Outpatient (CLI) | payer MEDICAID ==
[2017-08-17 16:46] LABS: CREATININE,URINE RANDOM 64.7 mg/dL (30.0-125.0)
[2017-08-17 16:53] LABS: BASOPHILS % (AUTO) 0.3 % (0.0-2.0); EOSINOPHILS % (AUTO) 2.6 % (1.0-6.0); HEMATOCRIT 27.2 % (41-53); HEMOGLOBIN 8.8 g/dL (13.5-17.5); LYMPHOCYTES # (AUTO) 1.7 K/uL (1.0-4.8); LYMPHOCYTES % (AUTO) 17.1 % (22.0-44.0); MEAN CORPUSCULAR HEMOGLOBIN 28.9 pg (26.0-34.0); MEAN CORPUSCULAR HGB CONC 32.5 G/dL (31.0-37.0); MEAN CORPUSCULAR VOLUME 89 fL (80-100); MONOCYTES # (AUTO) 0.5 K/uL (0.1-1.0); MONOCYTES % (AUTO) 4.8 % (2.0-9.0); NEUTROPHILS # (AUTO) 7.4 K/uL (1.8-7.7); NEUTROPHILS % (AUTO) 75.2 % (40.0-70.0); PLATELET COUNT (AUTO) 235 K/uL (150-450); RED BLOOD CELL COUNT(AUTO) 3.05 MIL/uL (4.50-5.90); RED CELL DISTRIBUTION WIDTH 15.1 % (11.5-14.5)
[2017-08-17 17:02] LABS: ALBUMIN 2.4 g/dL (3.4-5.0); CREATININE 4.18 mg/dL (0.60-1.30); HEMOGLOBIN A1C 7.6 % (4.5-6.2); MAGNESIUM 2.5 mg/dL (1.80-2.40); PHOSPHORUS 4.6 mg/dL (2.5-4.9); POTASSIUM 5.2 mmol/L (3.5-5.1)
[2017-08-17 17:02] LABS: APPEARANCE,URINE CLEAR (CLEAR); BILIRUBIN,URINE NEGATIVE (NEGATIVE); GLUCOSE, URINE (UA) 500 mg/dL (NEGATIVE); KETONES,URINE NEGATIVE (NEGATIVE); LEUKOCYTE ESTERASE ,URINE NEGATIVE (NEGATIVE); NITRATE,URINE NEGATIVE (NEGATIVE); OCCULT BLOOD,URINE SMALL (NEGATIVE); PROTEIN,URINE SEE CONFIRM (NEGATIVE); UROBILINOGEN,URINE 0.2 mg/dL (<=1.0)
[2017-08-17 17:05] LABS: PROTEIN,URINE RANDOM 665 mg/dL (0-11.9)
[2017-08-17 17:40] LABS: SULFOSALICYLIC ACID,URINE 4+ (Negative)
[2017-08-17 17:42] LABS: BACTERIA,URINE None Seen /HPF (None Seen); RBC,URINE 0-2 /HPF (0-2); SQUAMOUS EPITHELIAL CELL,UR Few /LPF (None Seen); WBC,URINE 0-2 /HPF (0-5)
[2017-08-17 17:43] LABS: HYALINE CASTS, URINE 0-2 /LPF (None Seen)
== END | disposition home or self-care (01) ==
LOC: LABPV 15:37
PROVIDERS: ATTEND Internal Medicine Nephrology
DX: N18.4 Chronic kidney disease, stage 4 (severe) (principal); D63.1 Anemia in chronic kidney disease; E55.9 Vitamin D deficiency, unspecified; R82.90 Unspecified abnormal findings in urine; R94.4 Abnormal results of kidney function studies; R73.09 Other abnormal glucose
CPT/HCPCS: 82306; 82570; 82728; 83036; 83540; 83550; 83735; 83970; 84156; 84466

== ENCOUNTER 2017-08-28 17:10 | Emergency (ER) | payer MEDICAID ==
[~2017-08-28] VITALS: Ht 170.2 cm; Wt 113.6 kg
[2017-08-28] MEDS ORDERED: OXYMETAZOLINE HCL 0.05% 15 ML NASAL SPRAY NASAL ONE (17:45)
[2017-08-28 17:50] VITALS: BP 155/91
== END 2017-08-28 18:25 | disposition home or self-care (01) ==
LOC: EMS 17:11
DX: H66.93 Otitis media, unspecified, bilateral (principal); I10 Essential (primary) hypertension; E11.9 Type 2 diabetes mellitus without complications; R09.81 Nasal congestion; Z79.84 Long term (current) use of oral hypoglycemic drugs; Z79.899 Other long term (current) drug therapy; Z87.891 Personal history of nicotine dependence
CPT/HCPCS: 82962; 99283

== ENCOUNTER → 2017-09-21 | Outpatient (CLI) | payer MEDICAID ==
[2017-09-21 14:08] LABS: BILIRUBIN,URINE NEGATIVE (NEGATIVE); GLUCOSE, URINE (UA) 250 mg/dL (NEGATIVE); KETONES,URINE NEGATIVE (NEGATIVE); LEUKOCYTE ESTERASE ,URINE NEGATIVE (NEGATIVE); NITRATE,URINE NEGATIVE (NEGATIVE); OCCULT BLOOD,URINE SMALL (NEGATIVE); PH,URINE 6.5 (5.0-8.0); PROTEIN,URINE SEE CONFIRM (NEGATIVE); UROBILINOGEN,URINE 0.2 mg/dL (<=1.0)
[2017-09-21 14:11] LABS: BASOPHILS % (AUTO) 0.5 % (0.0-2.0); EOSINOPHILS % (AUTO) 2.3 % (1.0-6.0); HEMATOCRIT 33.7 % (41-53); HEMOGLOBIN 11.2 g/dL (13.5-17.5); LYMPHOCYTES # (AUTO) 2.3 K/uL (1.0-4.8); LYMPHOCYTES % (AUTO) 22.3 % (22.0-44.0); MEAN CORPUSCULAR HGB CONC 33.2 G/dL (31.0-37.0); MEAN CORPUSCULAR VOLUME 87 fL (80-100); MONOCYTES # (AUTO) 0.6 K/uL (0.1-1.0); MONOCYTES % (AUTO) 5.8 % (2.0-9.0); NEUTROPHILS # (AUTO) 7.3 K/uL (1.8-7.7); NEUTROPHILS % (AUTO) 69.1 % (40.0-70.0); PLATELET COUNT (AUTO) 230 K/uL (150-450); RED BLOOD CELL COUNT(AUTO) 3.86 MIL/uL (4.50-5.90); RED CELL DISTRIBUTION WIDTH 16.3 % (11.5-14.5)
[2017-09-21 14:13] LABS: ALBUMIN 2.4 g/dL (3.4-5.0); CALCIUM, TOTAL 8.1 mg/dL (8.8-10.5); CREATININE 4.83 mg/dL (0.60-1.30); MAGNESIUM 2.5 mg/dL (1.80-2.40); PHOSPHORUS 4.8 mg/dL (2.5-4.9); POTASSIUM 5.4 mmol/L (3.5-5.1)
[2017-09-21 14:19] LABS: APPEARANCE,URINE HAZY (CLEAR)
[2017-09-21 14:21] LABS: BACTERIA,URINE Few /HPF (None Seen); SULFOSALICYLIC ACID,URINE 4+ (Negative); WBC,URINE 0-2 /HPF (0-5)
[2017-09-21 14:22] LABS: COARSE GRANULAR CASTS,URINE 0-2 /LPF (None Seen); HYALINE CASTS, URINE 0-2 /LPF (None Seen); SQUAMOUS EPITHELIAL CELL,UR Rare /LPF (None Seen)
== END | disposition home or self-care (01) ==
LOC: LABPV 13:28
PROVIDERS: ATTEND Internal Medicine Nephrology
DX: I12.9 Hypertensive chronic kidney disease with stage 1 through stage 4 chronic kidney disease, or unspecified chronic kidney disease (principal); N18.4 Chronic kidney disease, stage 4 (severe)
CPT/HCPCS: 82043; 82570; 83735

== ENCOUNTER → 2017-10-08 | Outpatient (CLI) | payer MEDICAID ==
[2017-10-08 17:54] LABS: BASOPHILS % (AUTO) 0.5 % (0.0-2.0); EOSINOPHILS % (AUTO) 2.6 % (1.0-6.0); HEMOGLOBIN 10.9 g/dL (13.5-17.5); LYMPHOCYTES # (AUTO) 1.9 K/uL (1.0-4.8); LYMPHOCYTES % (AUTO) 21.7 % (22.0-44.0); MEAN CORPUSCULAR HEMOGLOBIN 29.4 pg (26.0-34.0); MEAN CORPUSCULAR VOLUME 89 fL (80-100); MONOCYTES # (AUTO) 0.5 K/uL (0.1-1.0); MONOCYTES % (AUTO) 5.1 % (2.0-9.0); NEUTROPHILS # (AUTO) 6.2 K/uL (1.8-7.7); NEUTROPHILS % (AUTO) 70.1 % (40.0-70.0); PLATELET COUNT (AUTO) 202 K/uL (150-450); RED CELL DISTRIBUTION WIDTH 16.6 % (11.5-14.5)
[2017-10-08 17:58] LABS: APPEARANCE,URINE CLEAR (CLEAR); BILIRUBIN,URINE NEGATIVE (NEGATIVE); GLUCOSE, URINE (UA) 500 mg/dL (NEGATIVE); KETONES,URINE NEGATIVE (NEGATIVE); LEUKOCYTE ESTERASE ,URINE NEGATIVE (NEGATIVE); NITRATE,URINE NEGATIVE (NEGATIVE); OCCULT BLOOD,URINE SMALL (NEGATIVE); PH,URINE 6.5 (5.0-8.0); PROTEIN,URINE SEE CONFIRM (NEGATIVE); UROBILINOGEN,URINE 0.2 mg/dL (<=1.0)
[2017-10-08 18:06] LABS: ALBUMIN 2.4 g/dL (3.4-5.0); CALCIUM, TOTAL 8.1 mg/dL (8.8-10.5); CREATININE 5.38 mg/dL (0.60-1.30); MAGNESIUM 2.5 mg/dL (1.80-2.40); PHOSPHORUS 5.7 mg/dL (2.5-4.9); POTASSIUM 5.6 mmol/L (3.5-5.1)
[2017-10-08 18:22] LABS: BACTERIA,URINE None Seen /HPF (None Seen); RBC,URINE 0-2 /HPF (0-2); SQUAMOUS EPITHELIAL CELL,UR Few /LPF (None Seen); SULFOSALICYLIC ACID,URINE 2+ (Negative); WBC,URINE 0-2 /HPF (0-5)
== END | disposition home or self-care (01) ==
LOC: LABPV 14:28
PROVIDERS: ATTEND Internal Medicine Nephrology
DX: I12.9 Hypertensive chronic kidney disease with stage 1 through stage 4 chronic kidney disease, or unspecified chronic kidney disease (principal); E11.22 Type 2 diabetes mellitus with diabetic chronic kidney disease; N18.4 Chronic kidney disease, stage 4 (severe); D63.1 Anemia in chronic kidney disease
CPT/HCPCS: 82043; 82570; 83735

== ENCOUNTER → 2017-11-16 | Outpatient (CLI) | payer MEDICAID ==
[2017-11-16 14:22] LABS: BASOPHILS % (AUTO) 0.7 % (0.0-2.0); EOSINOPHILS % (AUTO) 2.6 % (1.0-6.0); HEMATOCRIT 34.7 % (41-53); HEMOGLOBIN 11.6 g/dL (13.5-17.5); LYMPHOCYTES # (AUTO) 1.8 K/uL (1.0-4.8); LYMPHOCYTES % (AUTO) 19.5 % (22.0-44.0); MEAN CORPUSCULAR HEMOGLOBIN 29.5 pg (26.0-34.0); MEAN CORPUSCULAR HGB CONC 33.5 G/dL (31.0-37.0); MEAN CORPUSCULAR VOLUME 88 fL (80-100); MONOCYTES # (AUTO) 0.5 K/uL (0.1-1.0); MONOCYTES % (AUTO) 5.1 % (2.0-9.0); NEUTROPHILS # (AUTO) 6.5 K/uL (1.8-7.7); NEUTROPHILS % (AUTO) 72.1 % (40.0-70.0); PLATELET COUNT (AUTO) 213 K/uL (150-450); RED BLOOD CELL COUNT(AUTO) 3.92 MIL/uL (4.50-5.90); RED CELL DISTRIBUTION WIDTH 15.9 % (11.5-14.5)
[2017-11-16 14:58] LABS: % IRON SATURATION 38.3 % (30-44)
[2017-11-16 15:09] LABS: ALBUMIN 2.3 g/dL (3.4-5.0); CALCIUM, TOTAL 7.9 mg/dL (8.8-10.5); CREATININE 7.16 mg/dL (0.60-1.30); MAGNESIUM 2.5 mg/dL (1.80-2.40); PHOSPHORUS 7.9 mg/dL (2.5-4.9); POTASSIUM 5.6 mmol/L (3.5-5.1)
[2017-11-16 16:14] LABS: CREATININE,URINE 71.6 mg/dL (30.0-125.0)
[2017-11-16 16:26] LABS: CREATININE,SERUM FOR CRCL 7.16 mg/dL (0.60-1.30)
== END | disposition home or self-care (01) ==
LOC: LABPV 13:56
PROVIDERS: ATTEND Internal Medicine Nephrology
DX: I12.9 Hypertensive chronic kidney disease with stage 1 through stage 4 chronic kidney disease, or unspecified chronic kidney disease (principal); E11.22 Type 2 diabetes mellitus with diabetic chronic kidney disease; N18.4 Chronic kidney disease, stage 4 (severe); D63.1 Anemia in chronic kidney disease
CPT/HCPCS: 81050; 82575; 82728; 83540; 83550; 83735; 84156

== ENCOUNTER → 2017-11-24 | Outpatient (CLI) | payer MEDICAID | END | disposition home or self-care (01) | LOC: LABPV 13:32 | PROVIDERS: ATTEND Internal Medicine Nephrology | DX: I12.9 Hypertensive chronic kidney disease with stage 1 through stage 4 chronic kidney disease, or unspecified chronic kidney disease (principal); N18.9 Chronic kidney disease, unspecified; D63.1 Anemia in chronic kidney disease | CPT/HCPCS: 86704; 86706; 86803; 87340 ==

== ENCOUNTER → 2017-11-27 | Outpatient (CLI) | payer MEDICAID | END | disposition home or self-care (01) | LOC: RADPV 14:33 | PROVIDERS: ATTEND Internal Medicine Nephrology | DX: S22.32XD Fracture of one rib, left side, subsequent encounter for fracture with routine healing (principal); I51.7 Cardiomegaly; I70.0 Atherosclerosis of aorta; N18.5 Chronic kidney disease, stage 5; X58.XXXD Exposure to other specified factors, subsequent encounter | CPT/HCPCS: 71046 ==

== ENCOUNTER → 2018-01-14 | Outpatient (CLI) | payer MEDICAID | END | disposition home or self-care (01) | LOC: LABPV 13:25 | PROVIDERS: ATTEND Internal Medicine Nephrology | DX: Z01.84 Encounter for antibody response examination (principal); B19.10 Unspecified viral hepatitis B without hepatic coma | CPT/HCPCS: 86706; 87340 ==

== ENCOUNTER → 2018-01-27 | Outpatient (CLI) | payer MEDICAID ==
[2018-01-27 15:59] LABS: BASOPHILS % (AUTO) 0.8 % (0.0-2.0); EOSINOPHILS % (AUTO) 2.8 % (1.0-6.0); HEMATOCRIT 31.5 % (41-53); HEMOGLOBIN 10.8 g/dL (13.5-17.5); LYMPHOCYTES # (AUTO) 1.8 K/uL (1.0-4.8); LYMPHOCYTES % (AUTO) 16.9 % (22.0-44.0); MEAN CORPUSCULAR HEMOGLOBIN 30.5 pg (26.0-34.0); MEAN CORPUSCULAR HGB CONC 34.2 G/dL (31.0-37.0); MEAN CORPUSCULAR VOLUME 89 fL (80-100); MONOCYTES # (AUTO) 0.6 K/uL (0.1-1.0); MONOCYTES % (AUTO) 5.4 % (2.0-9.0); NEUTROPHILS # (AUTO) 7.9 K/uL (1.8-7.7); NEUTROPHILS % (AUTO) 74.1 % (40.0-70.0); PLATELET COUNT (AUTO) 227 K/uL (150-450); RED BLOOD CELL COUNT(AUTO) 3.54 MIL/uL (4.50-5.90); RED CELL DISTRIBUTION WIDTH 14.4 % (11.5-14.5)
[2018-01-27 16:00] LABS: APPEARANCE,URINE CLEAR (CLEAR); BILIRUBIN,URINE NEGATIVE (NEGATIVE); GLUCOSE, URINE (UA) 500 mg/dL (NEGATIVE); KETONES,URINE NEGATIVE (NEGATIVE); LEUKOCYTE ESTERASE ,URINE NEGATIVE (NEGATIVE); NITRATE,URINE NEGATIVE (NEGATIVE); OCCULT BLOOD,URINE SMALL (NEGATIVE); PROTEIN,URINE SEE CONFIRM (NEGATIVE); UROBILINOGEN,URINE 0.2 mg/dL (<=1.0)
[2018-01-27 16:08] LABS: SULFOSALICYLIC ACID,URINE 4+ (Negative)
[2018-01-27 16:09] LABS: BACTERIA,URINE Rare /HPF (None Seen); SQUAMOUS EPITHELIAL CELL,UR Few /LPF (None Seen); WBC,URINE 0-2 /HPF (0-5)
[2018-01-27 16:16] LABS: ALBUMIN 2.5 g/dL (3.4-5.0); CALCIUM, TOTAL 7.9 mg/dL (8.8-10.5); CREATININE 7.7 mg/dL (0.60-1.30); MAGNESIUM 2.6 mg/dL (1.80-2.40); PHOSPHORUS 6.8 mg/dL (2.5-4.9)
[2018-01-27 17:29] LABS: PLATELET MORPHOLOGY COMMENT NORMAL
== END | disposition home or self-care (01) ==
LOC: LABPV 12:24
PROVIDERS: ATTEND Internal Medicine Nephrology
DX: I12.0 Hypertensive chronic kidney disease with stage 5 chronic kidney disease or end stage renal disease (principal); E11.22 Type 2 diabetes mellitus with diabetic chronic kidney disease; N18.6 End stage renal disease; D63.1 Anemia in chronic kidney disease
CPT/HCPCS: 82043; 82570; 83735

== ENCOUNTER 2018-03-22 03:20 | Emergency (ER) | payer MEDICAID ==
[~2018-03-22] VITALS: Ht 170.2 cm; Wt 113.6 kg
[2018-03-22 03:39] LABS: GLUCOSE,POINT OF CARE 343 MG/DL (70-110)
[2018-03-22] MEDS ORDERED: CYCLOBENZAPRINE HCL 10 MG TABLET PO ONE (04:45)
[2018-03-22] MEDS ORDERED: HYDROCODONE/ACETAMINOPHEN 5-325 MG TABLET PO ONE (04:45)
[2018-03-22 05:13] VITALS: BP 153/90
== END 2018-03-22 05:33 | disposition home or self-care (01) ==
LOC: EMS 03:22
DX: G58.9 Mononeuropathy, unspecified (principal); M62.838 Other muscle spasm; M79.622 Pain in left upper arm; E11.22 Type 2 diabetes mellitus with diabetic chronic kidney disease; N18.6 End stage renal disease; F17.210 Nicotine dependence, cigarettes, uncomplicated; Z99.2 Dependence on renal dialysis; Z79.899 Other long term (current) drug therapy
CPT/HCPCS: 99283; 99406

== ENCOUNTER 2018-03-26 11:45 | Emergency (ER) | payer MEDICAID ==
[~2018-03-26] VITALS: Ht 170.2 cm; Wt 113.6 kg
[2018-03-26 11:59] LABS: GLUCOSE,POINT OF CARE 231 MG/DL (70-110)
[2018-03-26] MEDS ORDERED: CYCLOBENZAPRINE HCL 10 MG TABLET PO ONE (13:15)
[2018-03-26] MEDS ORDERED: HYDROCODONE/ACETAMINOPHEN 5-325 MG TABLET PO ONE (13:15)
[2018-03-26 13:35] VITALS: BP 133/74
== END 2018-03-26 13:48 | disposition home or self-care (01) ==
LOC: EMS 11:46
DX: S46.912A Strain of unspecified muscle, fascia and tendon at shoulder and upper arm level, left arm, initial encounter (principal); E11.9 Type 2 diabetes mellitus without complications; F17.210 Nicotine dependence, cigarettes, uncomplicated; Z79.899 Other long term (current) drug therapy; X58.XXXA Exposure to other specified factors, initial encounter; Y93.H3 Activity, building and construction; Y92.89 Other specified places as the place of occurrence of the external cause; Y99.0 Civilian activity done for income or pay
CPT/HCPCS: 99283

== ENCOUNTER 2019-01-10 16:55 | Inpatient (IN) | payer MEDICAID ==
[~2019-01-10] VITALS: Ht 172.7 cm; Wt 108.1 kg
[~2019-01-10 16:55] MED LIST changes: -AMLO-511 PO; +AMLO5TAB9 PO
[2019-01-10 17:19] LABS: GLUCOSE,POINT OF CARE 225 MG/DL (70-110)
[2019-01-10] MEDS ORDERED: CALC-1038 PO (17:23)
[2019-01-10] MEDS ORDERED: FURO20 PO (17:23)
[2019-01-10 18:20] LABS: BASOPHILS % (AUTO) 0.5 % (0.0-2.0); EOSINOPHILS % (AUTO) 2.9 % (1.0-6.0); HEMATOCRIT 31.8 % (41-53); HEMOGLOBIN 10.3 g/dL (13.5-17.5); LYMPHOCYTES # (AUTO) 1.4 K/uL (1.0-4.8); MEAN CORPUSCULAR HGB CONC 32.3 G/dL (31.0-37.0); MEAN CORPUSCULAR VOLUME 96 fL (80-100); MONOCYTES # (AUTO) 0.6 K/uL (0.1-1.0); MONOCYTES % (AUTO) 6.1 % (2.0-9.0); NEUTROPHILS # (AUTO) 8.3 K/uL (1.8-7.7); NEUTROPHILS % (AUTO) 77.5 % (40.0-70.0); PLATELET COUNT (AUTO) 237 K/uL (150-450); RED BLOOD CELL COUNT(AUTO) 3.32 MIL/uL (4.50-5.90); RED CELL DISTRIBUTION WIDTH 13.9 % (11.5-14.5)
[2019-01-10 18:35] LABS: ANION GAP 12 mmol/L (8-16); CARBON DIOXIDE 24 mmol/L (22-29); CHLORIDE 100 mmol/L (98-107); CREATININE 9.17 mg/dL (0.60-1.30); GLOMERULAR FILTR. RATE CALC 6 mL/min (>60); GLUCOSE,RANDOM 214 mg/dL (70-110); SODIUM SERUM 136 mmol/L (136-145); UREA NITROGEN, BLOOD 74 mg/dL (7-18)
[2019-01-10 18:41] LABS: B-TYPE NATRIURETIC PEPTIDE 35 pg/mL (0-100)
[2019-01-10 18:42] LABS: LACTIC ACID 1.5 mmol/L (0.4-2.0)
[2019-01-10 18:48] LABS: ALANINE AMINOTRANSFERASE 30 U/L (12-78); ALKALINE PHOSPHATASE 136 U/L (46-116); ASPARTATE AMINOTRANSFERASE 15 U/L (15-37); BILIRUBIN,TOTAL 0.3 mg/dL (0.1-1.0); LIPASE 440 U/L (73-393); PHOSPHORUS 7.7 mg/dL (2.5-4.9); TOTAL PROTEIN, SERUM 7.5 g/dL (6.4-8.2)
[2019-01-10 19:11] LABS: ACETONE,BLOOD NEGATIVE (NEGATIVE)
[2019-01-10] MEDS ORDERED: SODIUM CHLORIDE 0.9% 500 ML IV ONE (19:45)
[2019-01-10] MEDS ORDERED: BISACODYL 10 MG RECTAL RECTAL SUPPOSITORY PR PRN (21:00)
[2019-01-10] MEDS ORDERED: DEXTROSE 50%-WATER 25 GM/50 ML SYRINGE IVP PRN (21:00)
[2019-01-10] MEDS ORDERED: ACETAMINOPHEN 325 MG TABLET PO PRN (21:00)
[2019-01-10 21:42] VITALS: BP 159/69
[2019-01-10] MEDS: DOCUSATE SODIUM 100 MG CAPSULE PO SCH (22:39)
[2019-01-10] MEDS: HEPARIN SODIUM,PORCINE 5,000 UNITS/ML VIAL SQ SCH (22:39)
[2019-01-10] MEDS: INSULIN LISPRO 100 UNITS/ML SQ PRN (22:40)
[2019-01-10 23:31] VITALS: BP 151/70
[2019-01-11 04:04] VITALS: BP 142/74
[2019-01-11 05:30] LABS: GLUCOMETER DEV NAME(LOC) 5N.2; GLUCOSE,POINT OF CARE 155 MG/DL (70-110)
[2019-01-11 08:09] VITALS: BP 142/78
[2019-01-11] MEDS: FAMOTIDINE 20 MG TABLET PO SCH (08:28)
[2019-01-11] MEDS: ASPIRIN 81 MG CHEWABLE TABLET PO SCH (08:29)
[2019-01-11] MEDS: DOCUSATE SODIUM 100 MG CAPSULE PO SCH ×2 (08:29→21:00)
[2019-01-11] MEDS: HEPARIN SODIUM,PORCINE 5,000 UNITS/ML VIAL SQ SCH ×2 (08:30→22:19)
[2019-01-11] MEDS ORDERED: ASPIRIN 81 MG CHEWABLE TABLET PO SCH (09:00)
[2019-01-11] MEDS: CEPHALEXIN MONOHYDRATE 500 MG CAPSULE PO SCH ×2 (10:26→22:18)
[2019-01-11] MEDS: VITAMIN B COMP/VIT C/FOLIC ACID CAPSULE PO SCH (10:27)
[2019-01-11] MEDS: NYSTATIN 500,000 UNITS TABLET PO SCH ×3 (10:27→22:19)
[2019-01-11] MEDS: GENTAMICIN SULFATE 0.1% 15 GM CREAM TP SCH (10:33)
[2019-01-11 10:59] LABS: GLUCOMETER DEV NAME(LOC) 5N.1; GLUCOSE,POINT OF CARE 64 MG/DL (70-110)
[2019-01-11 10:59] LABS: GLUCOMETER DEV NAME(LOC) 5N.1; GLUCOSE,POINT OF CARE 163 MG/DL (70-110)
[2019-01-11 12:06] VITALS: BP 143/63
[2019-01-11] MEDS: CALCIUM ACETATE 667 MG CAPSULE PO SCH ×2 (12:33→17:46)
[2019-01-11] MEDS: INSULIN LISPRO 100 UNITS/ML SQ PRN ×2 (12:34→22:21)
[2019-01-11 15:44] VITALS: BP 159/81
[2019-01-11 17:34] LABS: GLUCOMETER DEV NAME(LOC) 5S.2A; GLUCOSE,POINT OF CARE 180 MG/DL (70-110)
[2019-01-11 19:55] VITALS: BP 150/82
[2019-01-11 23:22] VITALS: BP 156/78
[2019-01-12 05:05] VITALS: BP 154/87
[2019-01-12 05:58] LABS: ALBUMIN 2.6 g/dL (3.4-5.0); BILIRUBIN,TOTAL 0.3 mg/dL (0.1-1.0); CALCIUM, TOTAL 7.9 mg/dL (8.8-10.5); CREATININE 8.2 mg/dL (0.60-1.30); POTASSIUM 4.5 mmol/L (3.5-5.1); TOTAL PROTEIN, SERUM 6.6 g/dL (6.4-8.2)
[2019-01-12] MEDS: INSULIN LISPRO 100 UNITS/ML SQ PRN ×3 (06:18→22:02)
[2019-01-12 08:10] VITALS: BP 162/62
[2019-01-12] MEDS: DOCUSATE SODIUM 100 MG CAPSULE PO SCH ×2 (09:00→21:00)
[2019-01-12] MEDS: FAMOTIDINE 20 MG TABLET PO SCH (09:04)
[2019-01-12] MEDS: CALCIUM ACETATE 667 MG CAPSULE PO SCH ×3 (09:04→18:43)
[2019-01-12] MEDS: HEPARIN SODIUM,PORCINE 5,000 UNITS/ML VIAL SQ SCH ×2 (09:04→21:57)
[2019-01-12] MEDS: NYSTATIN 500,000 UNITS TABLET PO SCH ×3 (09:04→21:57)
[2019-01-12] MEDS: FUROSEMIDE 40 MG TABLET PO SCH ×2 (09:04→21:57)
[2019-01-12] MEDS: ASPIRIN 81 MG CHEWABLE TABLET PO SCH (09:05)
[2019-01-12] MEDS: CEPHALEXIN MONOHYDRATE 500 MG CAPSULE PO SCH ×2 (09:05→21:57)
[2019-01-12] MEDS: GENTAMICIN SULFATE 0.1% 15 GM CREAM TP SCH (09:05)
[2019-01-12] MEDS: VITAMIN B COMP/VIT C/FOLIC ACID CAPSULE PO SCH (09:17)
[2019-01-12] MEDS ORDERED: NICOTINE 14 MG/24 HOUR PATCH TD ONE (09:45)
[2019-01-12] MEDS ORDERED: LOPERAMIDE HCL 2 MG CAPSULE PO PRN (09:45)
[2019-01-12] MEDS ORDERED: BARIUM SULFATE 0.1% SUSPENSION 450 ML BOTTLE ONE (10:13)
[2019-01-12] MEDS ORDERED: SODIUM CHLORIDE 0.9% 100 ML ONE (10:13)
[2019-01-12] MEDS ORDERED: IOVERSOL 350 MG/ML 150 ML VIAL ONE (10:13)
[2019-01-12 11:15] LABS: GLUCOMETER DEV NAME(LOC) 5S.2A; GLUCOSE,POINT OF CARE 114 MG/DL (70-110)
[2019-01-12 12:05] VITALS: BP 155/81
[2019-01-12 13:04] LABS: GLUCOMETER DEV NAME(LOC) 5N.2; GLUCOSE,POINT OF CARE 177 MG/DL (70-110)
[2019-01-12 13:04] LABS: GLUCOMETER DEV NAME(LOC) 5N.2; GLUCOSE,POINT OF CARE 244 MG/DL (70-110)
[2019-01-12 13:04] LABS: GLUCOMETER DEV NAME(LOC) 5N.2; GLUCOSE,POINT OF CARE 170 MG/DL (70-110)
[2019-01-12 16:12] VITALS: BP 158/82
[2019-01-12] MEDS: AmLODIPine BESYLATE 5 MG TABLET PO SCH (16:59)
[2019-01-12 19:44] VITALS: BP 157/92
[2019-01-12] MEDS: CARVEDILOL 12.5 MG TABLET PO SCH (21:57)
[2019-01-12 23:54] VITALS: BP 158/89
[2019-01-13 02:56] LABS: SPECIMENTYPE,BODY FLUID PERITONEAL
[2019-01-13 03:52] LABS: APPEARANCE,UNSPUN,BODY FLUID CLOUDY (CLEAR)
[2019-01-13 03:53] LABS: APPEARANCE,SPUN,BODY FLUID CLEAR (CLEAR); BODY FLUID RBC 21.7 /cu. mm.; COLOR,BODY FLUID COLORLESS (LT YELLOW); LYMPHOCYTES,BODY FLUID 2 %; MONOCYTES,BODY FLUID 1 %; NEUTROPHILS,BODY FLUID 97 %; TOTAL VOLUME,BODY FLUID 6 mL; WBC, BODY FLUID 373.89 /cu. mm.
[2019-01-13 04:40] VITALS: BP 162/81
[2019-01-13] MEDS: INSULIN LISPRO 100 UNITS/ML SQ PRN ×2 (06:01→11:32)
[2019-01-13 07:37] VITALS: BP 148/94
[2019-01-13] MEDS: VITAMIN B COMP/VIT C/FOLIC ACID CAPSULE PO SCH (08:38)
[2019-01-13] MEDS: AmLODIPine BESYLATE 5 MG TABLET PO SCH (08:38)
[2019-01-13] MEDS: NYSTATIN 500,000 UNITS TABLET PO SCH (08:38)
[2019-01-13] MEDS: CEPHALEXIN MONOHYDRATE 500 MG CAPSULE PO SCH (08:38)
[2019-01-13] MEDS: CARVEDILOL 12.5 MG TABLET PO SCH (08:39)
[2019-01-13] MEDS: HEPARIN SODIUM,PORCINE 5,000 UNITS/ML VIAL SQ SCH (08:39)
[2019-01-13] MEDS: CALCIUM ACETATE 667 MG CAPSULE PO SCH ×2 (08:39→11:31)
[2019-01-13] MEDS: ASPIRIN 81 MG CHEWABLE TABLET PO SCH (08:39)
[2019-01-13] MEDS: FAMOTIDINE 20 MG TABLET PO SCH (08:39)
[2019-01-13] MEDS: FUROSEMIDE 40 MG TABLET PO SCH (08:40)
[2019-01-13] MEDS: GENTAMICIN SULFATE 0.1% 15 GM CREAM TP SCH (08:40)
[2019-01-13] MEDS: DOCUSATE SODIUM 100 MG CAPSULE PO SCH (08:41)
[2019-01-13] MEDS ORDERED: LISINOPRIL 20 MG TABLET PO SCH (09:00)
[2019-01-13] MEDS ORDERED: AmLODIPine BESYLATE 2.5 MG TABLET PO ONE (10:15)
[2019-01-13 11:29] VITALS: BP 179/92
[2019-01-13] MEDS ORDERED: ASPI81TA39 PO (12:08)
[2019-01-13] MEDS ORDERED: PHOSLOC PO (12:08)
[2019-01-13] MEDS ORDERED: CEPH500 PO (12:09)
[2019-01-13] MEDS ORDERED: FAMO20 PO (12:09)
[2019-01-13] MEDS ORDERED: FURO40 PO (12:09)
[2019-01-13] MEDS ORDERED: GENT30CR TP (12:12)
[2019-01-13] MEDS ORDERED: NYST50002 PO (12:15)
[2019-01-13] MEDS ORDERED: FOLI1TAB61 PO (13:05)
[2019-01-13 20:30] LABS: GLUCOMETER DEV NAME(LOC) 5S.1; GLUCOSE,POINT OF CARE 180 MG/DL (70-110)
[2019-01-14 02:29] LABS: GLUCOMETER DEV NAME(LOC) 5N.2; GLUCOSE,POINT OF CARE 108 MG/DL (70-110)
[2019-01-14 02:29] LABS: GLUCOMETER DEV NAME(LOC) 5N.2; GLUCOSE,POINT OF CARE 164 MG/DL (70-110)
[2019-01-14 02:34] LABS: GLUCOMETER DEV NAME(LOC) 5N.2; GLUCOSE,POINT OF CARE 219 MG/DL (70-110)
== END 2019-01-13 13:20 | disposition home or self-care (01) | DRG 48 ==
LOC: EMS 16:56 → 5S 20:26
PROVIDERS: ADMIT Internal Medicine; ATTEND Internal Medicine
PROC: 3E1M39Z Irrigation of Peritoneal Cavity using Dialysate, Percutaneous Approach (ICD-10-PCS; principal; 2019-01-11)
PROC: 3E1M39Z Irrigation of Peritoneal Cavity using Dialysate, Percutaneous Approach (ICD-10-PCS; 2019-01-12)
DX: G90.8 Other disorders of autonomic nervous system (principal); E11.21 Type 2 diabetes mellitus with diabetic nephropathy; E11.40 Type 2 diabetes mellitus with diabetic neuropathy, unspecified; E83.39 Other disorders of phosphorus metabolism; N18.6 End stage renal disease; E11.22 Type 2 diabetes mellitus with diabetic chronic kidney disease; F17.210 Nicotine dependence, cigarettes, uncomplicated; I12.0 Hypertensive chronic kidney disease with stage 5 chronic kidney disease or end stage renal disease; M54.30 Sciatica, unspecified side; E83.41 Hypermagnesemia; E66.9 Obesity, unspecified; R19.7 Diarrhea, unspecified; T85.71XA Infection and inflammatory reaction due to peritoneal dialysis catheter, initial encounter; Y84.1 Kidney dialysis as the cause of abnormal reaction of the patient, or of later complication, without mention of misadventure at the time of the procedure; Y92.89 Other specified places as the place of occurrence of the external cause; Z87.01 Personal history of pneumonia (recurrent); Z83.3 Family history of diabetes mellitus; Z79.4 Long term (current) use of insulin; Z99.2 Dependence on renal dialysis; Z71.6 Tobacco abuse counseling; Z68.36 Body mass index [BMI] 36.0-36.9, adult
CPT/HCPCS: 70450; 70551; 74177; 83605; 83735; 84100; 87040; 87070; 87081; 87205; 89051; 93005; 93306; 93880; 97161; G0378; G0480; J1644; J7050

== ENCOUNTER 2019-05-17 16:53 | Inpatient (IN) | payer MEDICARE, MEDICAID ==
[~2019-05-17] VITALS: Ht 170.2 cm; Wt 114.9 kg
[~2019-05-17 16:53] MED LIST changes: -AMLO5TAB9 PO; +ASPI81TA39 PO; -CARV12 PO; +CEPH500 PO; +FAMO20 PO; +FOLI1TAB61 PO; +FURO40 PO; +GENT30CR TP; -GLIP5 PO; -LISI-662 PO; +NYST50002 PO; +PHOSLOC PO; -PRAV20TA4 PO; -SITA100 PO
[2019-05-17] MEDS ORDERED: BARIUM SULFATE 0.1% SUSPENSION 450 ML BOTTLE PO ONE (17:15)
[2019-05-17] MEDS ORDERED: ONDANSETRON HCL 4 MG/2 ML VIAL IVP ONE (17:15)
[2019-05-17] MEDS ORDERED: MORPHINE SULFATE 4 MG/ML SYRINGE IVP ONE ×2 (17:15→17:45)
[2019-05-17 17:46] LABS: BASOPHILS % (AUTO) 0.1 % (0.0-2.0); EOSINOPHILS % (AUTO) 1.9 % (1.0-6.0); HEMATOCRIT 28.3 % (41-53); HEMOGLOBIN 9.2 g/dL (13.5-17.5); LYMPHOCYTES # (AUTO) 0.8 K/uL (1.0-4.8); LYMPHOCYTES % (AUTO) 7.4 % (22.0-44.0); MEAN CORPUSCULAR HEMOGLOBIN 30.1 pg (26.0-34.0); MEAN CORPUSCULAR HGB CONC 32.7 G/dL (31.0-37.0); MEAN CORPUSCULAR VOLUME 92 fL (80-100); MONOCYTES # (AUTO) 0.5 K/uL (0.1-1.0); MONOCYTES % (AUTO) 4.8 % (2.0-9.0); NEUTROPHILS # (AUTO) 9.8 K/uL (1.8-7.7); PLATELET COUNT (AUTO) 206 K/uL (150-450); RED BLOOD CELL COUNT(AUTO) 3.07 MIL/uL (4.50-5.90); RED CELL DISTRIBUTION WIDTH 15.1 % (11.5-14.5)
[2019-05-17 17:48] LABS: NEUTROPHILS % (AUTO) 85.8 % (40.0-70.0)
[2019-05-17 17:49] LABS: CALCIUM, TOTAL 8.1 mg/dL (8.8-10.5); CREATININE 9.26 mg/dL (0.60-1.30); POTASSIUM 4.1 mmol/L (3.5-5.1)
[2019-05-17 17:55] LABS: ALBUMIN 2.5 g/dL (3.4-5.0); BILIRUBIN,TOTAL 0.2 mg/dL (0.1-1.0); TOTAL PROTEIN, SERUM 6.8 g/dL (6.4-8.2)
[2019-05-17 19:04] LABS: SPECIMENTYPE,BODY FLUID PERITONEAL
[2019-05-17] MEDS ORDERED: MORPHINE SULFATE 4 MG/ML SYRINGE IVP PRN (20:30)
[2019-05-17] MEDS ORDERED: MORPHINE SULFATE 2 MG/ML SYRINGE IVP PRN (20:30)
[2019-05-17] MEDS ORDERED: ACETAMINOPHEN 325 MG TABLET PO PRN ×2 (20:30)
[2019-05-17] MEDS ORDERED: ONDANSETRON HCL 4 MG/2 ML VIAL IVP PRN (20:30)
[2019-05-17 20:48] LABS: APPEARANCE,UNSPUN,BODY FLUID TURBID (CLEAR); COLOR,BODY FLUID LT YELLOW (LT YELLOW); TOTAL VOLUME,BODY FLUID 55 mL
[2019-05-17 20:52] LABS: APPEARANCE,SPUN,BODY FLUID HAZY (CLEAR)
[2019-05-17 20:53] LABS: WBC, BODY FLUID 21010 /cu. mm.
[2019-05-17 20:54] LABS: BASOPHILS,BODY FLUID 0 %; EOSINOPHILS,BF (ANAL) 0 %; LYMPHOCYTES,BODY FLUID 0 %; MONOCYTES,BODY FLUID 5 %; NEUTROPHILS,BODY FLUID 95 %
[2019-05-17 20:55] LABS: OTHER CELLS,BODY FLUID MACROPHAGES
[2019-05-17] MEDS ORDERED: CefTRIAXone 1 GM/DEXTROSE 50 ML IV SCH (21:00)
[2019-05-17] MEDS: DOCUSATE SODIUM 100 MG CAPSULE PO SCH (21:02)
[2019-05-17] MEDS: HEPARIN SODIUM,PORCINE 5,000 UNITS/ML VIAL SQ SCH (21:02)
[2019-05-17] MEDS: HYDROCODONE/ACETAMINOPHEN 5-325 MG TABLET PO PRN (22:30)
[2019-05-18] MEDS ORDERED: DEXTROSE 50%-WATER 25 GM/50 ML SYRINGE IVP PRN (00:30)
[2019-05-18] MEDS: MORPHINE SULFATE 2 MG/ML SYRINGE IVP PRN ×2 (00:44→05:57)
[2019-05-18] MEDS ORDERED: DEX IP PRN ×4 (01:15→17:41)
[2019-05-18] MEDS ORDERED: VANCOMYCIN HCL IP PRN (01:15)
[2019-05-18] MEDS ORDERED: PERITON DIALYSIS IP PRN ×4 (01:15→17:41)
[2019-05-18] MEDS ORDERED: -PHARMACY VACCINE NOTE- MISC ONE (01:30)
[2019-05-18 03:55] VITALS: BP 122/67
[2019-05-18] MEDS ORDERED: CefTAZidime PENTAHYDRATE 1 GM in DEXTROSE 5%-WATER 50 ML IV ONE (05:00)
[2019-05-18 05:59] VITALS: BP 129/75
[2019-05-18] MEDS ORDERED: SODIUM CHLORIDE 0.9% 100 ML ONE (06:02)
[2019-05-18] MEDS: HEPARIN SODIUM,PORCINE 5,000 UNITS/ML VIAL SQ SCH ×2 (07:40→21:02)
[2019-05-18] MEDS: ONDANSETRON HCL 4 MG/2 ML VIAL IVP PRN ×2 (07:40→21:10)
[2019-05-18] MEDS: NICOTINE 21 MG/24 HOUR PATCH TD SCH (07:40)
[2019-05-18] MEDS: FAMOTIDINE 20 MG TABLET PO SCH (07:40)
[2019-05-18] MEDS: HYDROCODONE/ACETAMINOPHEN 5-325 MG TABLET PO PRN (07:51)
[2019-05-18] MEDS: DOCUSATE SODIUM 100 MG CAPSULE PO SCH ×2 (07:56→21:03)
[2019-05-18 08:15] VITALS: BP 161/92
[2019-05-18 09:42] LABS: BASOPHILS % (AUTO) 0.2 % (0.0-2.0); EOSINOPHILS % (AUTO) 1.2 % (1.0-6.0); HEMATOCRIT 26.7 % (41-53); HEMOGLOBIN 8.7 g/dL (13.5-17.5); LYMPHOCYTES # (AUTO) 0.8 K/uL (1.0-4.8); LYMPHOCYTES % (AUTO) 6.6 % (22.0-44.0); MEAN CORPUSCULAR HEMOGLOBIN 30.1 pg (26.0-34.0); MEAN CORPUSCULAR HGB CONC 32.5 G/dL (31.0-37.0); MEAN CORPUSCULAR VOLUME 93 fL (80-100); MONOCYTES # (AUTO) 0.7 K/uL (0.1-1.0); MONOCYTES % (AUTO) 5.9 % (2.0-9.0); NEUTROPHILS # (AUTO) 10.7 K/uL (1.8-7.7); PLATELET COUNT (AUTO) 168 K/uL (150-450); RED BLOOD CELL COUNT(AUTO) 2.88 MIL/uL (4.50-5.90); RED CELL DISTRIBUTION WIDTH 15.1 % (11.5-14.5)
[2019-05-18] MEDS: AmLODIPine BESYLATE 10 MG TABLET PO SCH (09:54)
[2019-05-18 09:59] LABS: CALCIUM, TOTAL 7.6 mg/dL (8.8-10.5); CREATININE 8.22 mg/dL (0.60-1.30); POTASSIUM 3.7 mmol/L (3.5-5.1)
[2019-05-18 10:00] LABS: NEUTROPHILS % (AUTO) 86.1 % (40.0-70.0)
[2019-05-18 11:21] VITALS: BP 150/75
[2019-05-18] MEDS: NYSTATIN 500,000 UNITS/5 ML SUSPENSION UDCUP PO SCH ×2 (12:10→17:55)
[2019-05-18] MEDS: INSULIN LISPRO 100 UNITS/ML SQ PRN ×3 (12:14→21:04)
[2019-05-18 15:14] VITALS: BP 162/65
[2019-05-18] MEDS ORDERED: CEFTAZIDIME PENTAHYDRATE IP PRN ×3 (17:00→17:41)
[2019-05-18 17:53] LABS: GLUCOMETER DEV NAME(LOC) 5N.2; GLUCOSE,POINT OF CARE 196 MG/DL (70-110)
[2019-05-18 17:53] LABS: GLUCOMETER DEV NAME(LOC) 5N.2; GLUCOSE,POINT OF CARE 135 MG/DL (70-110)
[2019-05-18 17:55] LABS: GLUCOMETER DEV NAME(LOC) 5N.1; GLUCOSE,POINT OF CARE 201 MG/DL (70-110)
[2019-05-18 20:10] VITALS: BP 137/80
[2019-05-18] MEDS ORDERED: NYSTATIN 500,000 UNITS TABLET PO SCH (21:00)
[2019-05-18] MEDS ORDERED: FUROSEMIDE 40 MG TABLET PO SCH (21:00)
[2019-05-19] VITALS (7 sets, daily range): BP systolic 112–148; BP diastolic 63–96
[2019-05-19 01:27] LABS: ABG METHEMOGLOBIN 0.3 % (0.0-1.5); ABG TOTAL HEMOGLOBIN 9.9 G/dL (12.0-18.0); SOURCE, BLOOD GAS ARTERIAL; TEMPERATURE, FAHRENHEIT, BG 98.6 FAHREN (96.0-98.6)
[2019-05-19 01:30] LABS: ABG BASE EXCESS -11.9 mmol/L (-2.0-3.0); ABG CARBOXYHEMOGLOBIN 2.3 % (0.0-1.5); ABG HCO3 14.8 mmol/L (22.0-26.0); ABG OXYGEN CONTENT 12.3 mL/dL (15.0-23.0); ABG OXYGEN SATURATION 90.3 % (95.0-98.0); ABG PH 7.022 (7.35-7.450)
[2019-05-19 01:31] LABS: ABG PCO2 75 mmHg (35-45); SITE, BLOOD GAS LFT RADIAL
[2019-05-19] MEDS: CefTAZidime PENTAHYDRATE 0.5 GM in DEXTROSE 5%-WATER 50 ML IV SCH (04:35)
[2019-05-19] MEDS: NYSTATIN 500,000 UNITS/5 ML SUSPENSION UDCUP PO SCH ×5 (06:00→23:21)
[2019-05-19] MEDS: INSULIN LISPRO 100 UNITS/ML SQ PRN ×2 (06:13→23:36)
[2019-05-19] MEDS ORDERED: [UNRECOGNIZED DRUG - OTHER] IP PRN (07:00)
[2019-05-19] MEDS ORDERED: CEFTAZIDIME PENTAHYDRATE IP PRN (07:00)
[2019-05-19] MEDS ORDERED: VANCOMYCIN HCL IP PRN (07:00)
[2019-05-19 07:28] LABS: ABG METHEMOGLOBIN 0.3 % (0.0-1.5); SOURCE, BLOOD GAS ARTERIAL; TEMPERATURE, FAHRENHEIT, BG 98.6 FAHREN (96.0-98.6)
[2019-05-19 07:33] LABS: GLUCOMETER DEV NAME(LOC) 6N.2; GLUCOSE,POINT OF CARE 250 MG/DL (70-110)
[2019-05-19 07:40] LABS: ABG A-A DIFF O2 110.1 mmHg (10-20.0); ABG BASE EXCESS -12.7 mmol/L (-2.0-3.0); ABG CARBOXYHEMOGLOBIN 1.8 % (0.0-1.5); ABG HCO3 14.1 mmol/L (22.0-26.0); ABG OXYGEN CONTENT 11.8 mL/dL (15.0-23.0); ABG OXYGEN SATURATION 89.9 % (95.0-98.0); ABG TOTAL HEMOGLOBIN 9.5 G/dL (12.0-18.0); PO2, ARTERIAL BG 70.8 mmHg (84.0-92.0)
[2019-05-19 07:41] LABS: ABG PCO2 91 mmHg (35-45); ABG PH 6.948 (7.35-7.450); INSPIRATORY TIME, BG 1 SEC; O2 DEVICE,BLOOD GAS BIPAP (ROOM AIR); SITE, BLOOD GAS RT RADIAL
[2019-05-19] MEDS ORDERED: CALCIUM ACETATE 667 MG CAPSULE PO SCH (08:00)
[2019-05-19] MEDS ORDERED: SODIUM BICARBONATE [ADULT] 8.4% 50 MEQ/50 ML SYRINGE IVP ONE (08:15)
[2019-05-19] MEDS: AmLODIPine BESYLATE 10 MG TABLET PO SCH (09:00)
[2019-05-19] MEDS: DOCUSATE SODIUM 100 MG CAPSULE PO SCH ×2 (09:00→20:45)
[2019-05-19] MEDS: FAMOTIDINE 20 MG TABLET PO SCH (09:00)
[2019-05-19] MEDS: ASPIRIN 81 MG CHEWABLE TABLET PO SCH (09:00)
[2019-05-19] MEDS ORDERED: FAMOTIDINE 20 MG TABLET PO SCH (09:00)
[2019-05-19 09:08] LABS: BASOPHILS % (AUTO) 0.3 % (0.0-2.0); EOSINOPHILS % (AUTO) 0 % (1.0-6.0); HEMATOCRIT 25.2 % (41-53); HEMOGLOBIN 8.3 g/dL (13.5-17.5); LYMPHOCYTES # (AUTO) 0.1 K/uL (1.0-4.8); LYMPHOCYTES % (AUTO) 0.9 % (22.0-44.0); MEAN CORPUSCULAR HEMOGLOBIN 30.5 pg (26.0-34.0); MEAN CORPUSCULAR HGB CONC 32.9 G/dL (31.0-37.0); MEAN CORPUSCULAR VOLUME 93 fL (80-100); MONOCYTES # (AUTO) 0.3 K/uL (0.1-1.0); MONOCYTES % (AUTO) 2.9 % (2.0-9.0); NEUTROPHILS # (AUTO) 11.6 K/uL (1.8-7.7); PLATELET COUNT (AUTO) 165 K/uL (150-450); RED BLOOD CELL COUNT(AUTO) 2.72 MIL/uL (4.50-5.90)
[2019-05-19 09:11] LABS: NEUTROPHILS % (AUTO) 95.9 % (40.0-70.0)
[2019-05-19 09:19] LABS: CALCIUM, TOTAL 7.5 mg/dL (8.8-10.5); CREATININE 8.15 mg/dL (0.60-1.30); POTASSIUM 4.3 mmol/L (3.5-5.1)
[2019-05-19] MEDS: PROPOFOL 1000 MG/ISO-OSM 100 ML IV PRN ×4 (09:19→23:30)
[2019-05-19 09:22] LABS: MAGNESIUM 2.5 mg/dL (1.80-2.40)
[2019-05-19] MEDS ORDERED: ETOMIDATE 2 MG/ML 10 ML VIAL IVP ONE (09:30)
[2019-05-19] MEDS ORDERED: VECURONIUM BROMIDE 10 MG/VIAL IVP ONE (09:30)
[2019-05-19] MEDS ORDERED: FUROSEMIDE 40 MG/4 ML VIAL IVP ONE (09:30)
[2019-05-19 09:44] LABS: PHOSPHORUS 10.2 mg/dL (2.5-4.9)
[2019-05-19 10:28] LABS: ABG METHEMOGLOBIN 0.3 % (0.0-1.5); SOURCE, BLOOD GAS ARTERIAL; TEMPERATURE, FAHRENHEIT, BG 94.2 FAHREN (96.0-98.6)
[2019-05-19 10:31] LABS: ABG A-A DIFF O2 372.5 mmHg (10-20.0); ABG BASE EXCESS -3.3 mmol/L (-2.0-3.0); ABG CARBOXYHEMOGLOBIN 1.4 % (0.0-1.5); ABG HCO3 21.7 mmol/L (22.0-26.0); ABG OXYGEN CONTENT 12.7 mL/dL (15.0-23.0); ABG OXYGEN SATURATION 99.7 % (95.0-98.0); ABG PCO2 47 mmHg (35-45); ABG PH 7.308 (7.35-7.450); ABG TOTAL HEMOGLOBIN 8.6 G/dL (12.0-18.0); PO2, ARTERIAL BG 299.8 mmHg (84.0-92.0)
[2019-05-19] MEDS: NICOTINE 21 MG/24 HOUR PATCH TD SCH (10:32)
[2019-05-19 10:33] LABS: O2 DEVICE,BLOOD GAS VENTILATOR (ROOM AIR); PEEP,BG 5 cm H2O; SITE, BLOOD GAS RT RADIAL; SPONTANEOUS VT, BG 496 ml; VT, ABG 550 ml
[2019-05-19] MEDS: GENTAMICIN SULFATE 0.1% 15 GM CREAM TP SCH (12:42)
[2019-05-19] MEDS: HEPARIN SODIUM,PORCINE 5,000 UNITS/ML VIAL SQ SCH ×2 (12:46→20:48)
[2019-05-19] MEDS ORDERED: LEVOFLOXACIN 750 MG/D5% WATER 150 ML IV ONE (14:15)
[2019-05-19] MEDS ORDERED: VANCOMYCIN HCL 1 GM/D5% WATER 200 ML IV PRN (15:00)
[2019-05-19] MEDS ORDERED: VANCOMYCIN HCL 1 GM/D5% WATER 200 ML IV ONE (15:00)
[2019-05-19] MEDS ORDERED: SODIUM CHLORIDE 0.9% 250 ML IV ONE (15:45)
[2019-05-19 15:58] LABS: SPECIMENTYPE,BODY FLUID PERITONEAL
[2019-05-19] MEDS ORDERED: ETOMIDATE 2 MG/ML 10 ML VIAL ONE (17:13)
[2019-05-19] MEDS ORDERED: VECURONIUM BROMIDE 10 MG/VIAL ONE (17:13)
[2019-05-19 17:56] LABS: GLUCOSE,POINT OF CARE 168 MG/DL (70-110)
[2019-05-19 18:34] LABS: APPEARANCE,SPUN,BODY FLUID CLEAR (CLEAR); APPEARANCE,UNSPUN,BODY FLUID HAZY (CLEAR); BASOPHILS,BODY FLUID 0 %; COLOR,BODY FLUID LT YELLOW (LT YELLOW); EOSINOPHILS,BF (ANAL) 0 %; LYMPHOCYTES,BODY FLUID 5 %; MONOCYTES,BODY FLUID 5 %; NEUTROPHILS,BODY FLUID 90 %; TOTAL VOLUME,BODY FLUID 8 mL; WBC, BODY FLUID 253 /cu. mm.
[2019-05-19 18:57] LABS: GLUCOSE,POINT OF CARE 118 MG/DL (70-110)
[2019-05-19 20:22] LABS: ABG A-A DIFF O2 584.6 mmHg (10-20.0); ABG BASE EXCESS -2.1 mmol/L (-2.0-3.0); ABG CARBOXYHEMOGLOBIN 0.8 % (0.0-1.5); ABG METHEMOGLOBIN 0.3 % (0.0-1.5); ABG OXYGEN SATURATION 98.3 % (95.0-98.0); ABG OXYHEMOGLOBIN 97.2 % (94.0-100.0); ABG PCO2 28 mmHg (35-45); ABG PH 7.497 (7.35-7.450); PO2, ARTERIAL BG 104.4 mmHg (84.0-92.0); SOURCE, BLOOD GAS ARTERIAL; TEMPERATURE, FAHRENHEIT, BG 95.7 FAHREN (96.0-98.6)
[2019-05-19 20:24] LABS: ABG TOTAL HEMOGLOBIN 7.9 G/dL (12.0-18.0); O2 DEVICE,BLOOD GAS VENTILATOR (ROOM AIR); SITE, BLOOD GAS RT RADIAL; VT, ABG 550 ml
[2019-05-19 20:25] LABS: PEEP,BG 5 cm H2O; SPONTANEOUS VT, BG 516 ml
[2019-05-19] MEDS: FUROSEMIDE 40 MG/4 ML VIAL IVP SCH (20:47)
[2019-05-19 23:47] LABS: GLUCOSE,POINT OF CARE 75 MG/DL (70-110)
[2019-05-20] VITALS (7 sets, daily range): BP systolic 160–192; BP diastolic 86–108
[2019-05-20] MEDS: PROPOFOL 1000 MG/ISO-OSM 100 ML IV PRN ×9 (01:57→23:42)
[2019-05-20] MEDS: MORPHINE SULFATE 2 MG/ML SYRINGE IVP PRN (03:38)
[2019-05-20] MEDS: CefTAZidime PENTAHYDRATE 0.5 GM in DEXTROSE 5%-WATER 50 ML IV SCH (04:36)
[2019-05-20 05:28] LABS: BASOPHILS % (AUTO) 0.4 % (0.0-2.0); EOSINOPHILS % (AUTO) 1.7 % (1.0-6.0); HEMATOCRIT 22.4 % (41-53); HEMOGLOBIN 7.8 g/dL (13.5-17.5); LYMPHOCYTES # (AUTO) 0.7 K/uL (1.0-4.8); LYMPHOCYTES % (AUTO) 7.8 % (22.0-44.0); MEAN CORPUSCULAR HEMOGLOBIN 31.4 pg (26.0-34.0); MEAN CORPUSCULAR VOLUME 90 fL (80-100); MONOCYTES # (AUTO) 0.5 K/uL (0.1-1.0); MONOCYTES % (AUTO) 5.4 % (2.0-9.0); NEUTROPHILS # (AUTO) 7.3 K/uL (1.8-7.7); NEUTROPHILS % (AUTO) 84.7 % (40.0-70.0); PLATELET COUNT (AUTO) 164 K/uL (150-450); RED BLOOD CELL COUNT(AUTO) 2.49 MIL/uL (4.50-5.90); RED CELL DISTRIBUTION WIDTH 14.6 % (11.5-14.5)
[2019-05-20 05:43] LABS: CALCIUM, TOTAL 7.5 mg/dL (8.8-10.5); CREATININE 5.57 mg/dL (0.60-1.30); MAGNESIUM 1.8 mg/dL (1.80-2.40); PHOSPHORUS 4.9 mg/dL (2.5-4.9); POTASSIUM 3.3 mmol/L (3.5-5.1); VANCOMYCIN,RANDOM 18.6 mcg/mL (25.0-50.0)
[2019-05-20] MEDS: NYSTATIN 500,000 UNITS/5 ML SUSPENSION UDCUP PO SCH ×4 (06:29→23:44)
[2019-05-20] MEDS: AmLODIPine BESYLATE 10 MG TABLET PO SCH (06:44)
[2019-05-20] MEDS ORDERED: HydrALAZINE HCL 50 MG TABLET PO SCH (08:15)
[2019-05-20 08:24] LABS: GLUCOSE,POINT OF CARE 119 MG/DL (70-110)
[2019-05-20 08:26] LABS: GLUCOSE,POINT OF CARE 115 MG/DL (70-110)
[2019-05-20] MEDS ORDERED: VANCOMYCIN HCL 1 GM/D5% WATER 200 ML IV ONE (09:00)
[2019-05-20] MEDS: DOCUSATE SODIUM 100 MG CAPSULE PO SCH ×2 (09:00→20:41)
[2019-05-20] MEDS: NICOTINE 21 MG/24 HOUR PATCH TD SCH (09:05)
[2019-05-20] MEDS: EPOETIN ALFA 10,000 UNITS/ML VIAL SQ SCH (09:05)
[2019-05-20] MEDS: FAMOTIDINE 20 MG TABLET PO SCH (09:06)
[2019-05-20] MEDS: FUROSEMIDE 40 MG/4 ML VIAL IVP SCH ×2 (09:06→20:41)
[2019-05-20] MEDS: ASPIRIN 81 MG CHEWABLE TABLET PO SCH (09:06)
[2019-05-20] MEDS: GENTAMICIN SULFATE 0.1% 15 GM CREAM TP SCH (09:06)
[2019-05-20] MEDS: HEPARIN SODIUM,PORCINE 5,000 UNITS/ML VIAL SQ SCH ×2 (09:09→20:41)
[2019-05-20 09:34] LABS: ABG A-A DIFF O2 161.9 mmHg (10-20.0); ABG BASE EXCESS -1.1 mmol/L (-2.0-3.0); ABG CARBOXYHEMOGLOBIN 0.5 % (0.0-1.5); ABG HCO3 23.7 mmol/L (22.0-26.0); ABG METHEMOGLOBIN 0.3 % (0.0-1.5); ABG OXYGEN CONTENT 11.9 mL/dL (15.0-23.0); ABG OXYHEMOGLOBIN 96.2 % (94.0-100.0); ABG PCO2 36 mmHg (35-45); ABG PH 7.434 (7.35-7.450); ABG TOTAL HEMOGLOBIN 8.7 G/dL (12.0-18.0); PO2, ARTERIAL BG 83.9 mmHg (84.0-92.0); SOURCE, BLOOD GAS ARTERIAL; TEMPERATURE, FAHRENHEIT, BG 96.1 FAHREN (96.0-98.6)
[2019-05-20 09:36] LABS: O2 DEVICE,BLOOD GAS VENTILATOR (ROOM AIR); SITE, BLOOD GAS LFT RADIAL; VT, ABG 550 ml
[2019-05-20 09:37] LABS: PEEP,BG 5 cm H2O
[2019-05-20] MEDS: CloNIDine HCL 0.2 MG TABLET PO SCH ×3 (10:29→23:44)
[2019-05-20] MEDS ORDERED: HEPARIN SODIUM,PORCINE 1,000 UNITS/ML VIAL IVP ONE (10:56)
[2019-05-20 11:29] LABS: GLUCOMETER DEV NAME(LOC) 5S.2A; GLUCOSE,POINT OF CARE 299 MG/DL (70-110)
[2019-05-20] MEDS: ALBUTEROL SULFATE 2.5 MG/0.5 ML NEB SOLUTION NEB SCH ×4 (11:47→23:21)
[2019-05-20] MEDS: IPRATROPIUM BROMIDE 0.5 MG/2.5 ML NEB SOLUTION NEB SCH ×4 (11:47→23:21)
[2019-05-20 12:19] LABS: APPEARANCE,URINE CLOUDY (CLEAR); BILIRUBIN,URINE NEGATIVE (NEGATIVE); GLUCOSE, URINE (UA) 100 mg/dL (NEGATIVE); KETONES,URINE NEGATIVE (NEGATIVE); NITRATE,URINE NEGATIVE (NEGATIVE); OCCULT BLOOD,URINE LARGE (NEGATIVE); PH,URINE 5.5 (5.0-8.0); PROTEIN,URINE SEE CONFIRM (NEGATIVE); UROBILINOGEN,URINE 0.2 mg/dL (<=1.0)
[2019-05-20 12:27] LABS: LEUKOCYTE ESTERASE ,URINE SMALL (NEGATIVE); RBC,URINE 26-50 /HPF (0-2); SULFOSALICYLIC ACID,URINE 3+ (Negative)
[2019-05-20 12:28] LABS: BACTERIA,URINE Moderate /HPF (None Seen)
[2019-05-20 12:29] LABS: RENAL EPITHELIAL CELLS,URINE Few /LPF (None Seen)
[2019-05-20 12:35] LABS: GLUCOSE,POINT OF CARE 141 MG/DL (70-110)
[2019-05-20] MEDS: HydrALAZINE HCL 50 MG TABLET PO SCH ×2 (14:52→20:42)
[2019-05-20] MEDS ORDERED: SODIUM CHLORIDE 0.9% 2,000 ML IV ONE (15:12)
[2019-05-20] MEDS ORDERED: DEX IP PRN (16:00)
[2019-05-20] MEDS ORDERED: CEFTAZIDIME PENTAHYDRATE IP PRN ×2 (16:00→17:00)
[2019-05-20] MEDS ORDERED: PERITON DIALYSIS IP PRN (16:00)
[2019-05-20] MEDS ORDERED: DIANEAL PD IP PRN (17:00)
[2019-05-20] MEDS ORDERED: DEXTROSE IP PRN (17:00)
[2019-05-20] MEDS ORDERED: HEPARIN SODIUM,PORCINE 1,000 UNITS/ML VIAL ONE (17:30)
[2019-05-20] MEDS: INSULIN LISPRO 100 UNITS/ML SQ PRN ×2 (18:35→23:53)
[2019-05-20 19:46] LABS: GLUCOSE,POINT OF CARE 168 MG/DL (70-110)
[2019-05-21] VITALS: BP 156/89
[2019-05-21] MEDS: IPRATROPIUM BROMIDE 0.5 MG/2.5 ML NEB SOLUTION NEB SCH ×6 (01:52→23:36)
[2019-05-21] MEDS: ALBUTEROL SULFATE 2.5 MG/0.5 ML NEB SOLUTION NEB SCH ×6 (01:52→23:36)
[2019-05-21] MEDS: HydrALAZINE HCL 50 MG TABLET PO SCH ×4 (02:54→20:20)
[2019-05-21] MEDS: PROPOFOL 1000 MG/ISO-OSM 100 ML IV PRN ×2 (02:57→04:52)
[2019-05-21 04:00] VITALS: BP 141/75
[2019-05-21 05:23] LABS: CALCIUM, TOTAL 7.4 mg/dL (8.8-10.5); CREATININE 4.53 mg/dL (0.60-1.30); POTASSIUM 3.5 mmol/L (3.5-5.1)
[2019-05-21 06:03] LABS: GLUCOSE,POINT OF CARE 131 MG/DL (70-110)
[2019-05-21] MEDS: CefTAZidime PENTAHYDRATE 0.5 GM in DEXTROSE 5%-WATER 50 ML IV SCH (06:14)
[2019-05-21] MEDS: NYSTATIN 500,000 UNITS/5 ML SUSPENSION UDCUP PO SCH ×3 (06:14→18:00)
[2019-05-21 07:01] LABS: GLUCOSE,POINT OF CARE 143 MG/DL (70-110)
[2019-05-21 08:00] VITALS: BP 179/99
[2019-05-21] MEDS: CloNIDine HCL 0.2 MG TABLET PO SCH ×2 (08:00→16:00)
[2019-05-21 08:05] LABS: SPECIMENTYPE,BODY FLUID PERITONEAL
[2019-05-21] MEDS: NICOTINE 21 MG/24 HOUR PATCH TD SCH (09:06)
[2019-05-21] MEDS: FUROSEMIDE 40 MG/4 ML VIAL IVP SCH ×2 (09:07→20:17)
[2019-05-21] MEDS: FAMOTIDINE 20 MG TABLET PO SCH (09:07)
[2019-05-21] MEDS: HEPARIN SODIUM,PORCINE 5,000 UNITS/ML VIAL SQ SCH ×2 (09:07→20:18)
[2019-05-21] MEDS: AmLODIPine BESYLATE 10 MG TABLET PO SCH (09:07)
[2019-05-21] MEDS: ASPIRIN 81 MG CHEWABLE TABLET PO SCH (09:09)
[2019-05-21] MEDS: DOCUSATE SODIUM 100 MG CAPSULE PO SCH ×3 (09:09→20:34)
[2019-05-21] MEDS: GENTAMICIN SULFATE 0.1% 15 GM CREAM TP SCH (09:10)
[2019-05-21 10:09] LABS: APPEARANCE,SPUN,BODY FLUID CLEAR (CLEAR); APPEARANCE,UNSPUN,BODY FLUID CLEAR (CLEAR); COLOR,BODY FLUID COLORLESS (LT YELLOW); TOTAL VOLUME,BODY FLUID 20 mL
[2019-05-21] MEDS: MORPHINE SULFATE 2 MG/ML SYRINGE IVP PRN (10:51)
[2019-05-21 11:21] LABS: WBC, BODY FLUID 7 /cu. mm.
[2019-05-21 11:22] LABS: LYMPHOCYTES,BODY FLUID 18 %; MONOCYTES,BODY FLUID 18 %
[2019-05-21 11:23] LABS: NEUTROPHILS,BODY FLUID 64 %
[2019-05-21] MEDS ORDERED: LORazepam 2 MG/ML VIAL IVP PRN (11:30)
[2019-05-21 12:00] VITALS: BP 165/91
[2019-05-21 12:35] LABS: ABG A-A DIFF O2 123.3 mmHg (10-20.0); ABG BASE EXCESS -2.8 mmol/L (-2.0-3.0); ABG CARBOXYHEMOGLOBIN 0.4 % (0.0-1.5); ABG HCO3 22.4 mmol/L (22.0-26.0); ABG METHEMOGLOBIN 0.3 % (0.0-1.5); ABG OXYGEN CONTENT 12.2 mL/dL (15.0-23.0); ABG OXYGEN SATURATION 96.4 % (95.0-98.0); ABG OXYHEMOGLOBIN 95.7 % (94.0-100.0); ABG PCO2 35 mmHg (35-45); ABG PH 7.411 (7.35-7.450); PO2, ARTERIAL BG 85.4 mmHg (84.0-92.0); SOURCE, BLOOD GAS ARTERIAL; TEMPERATURE, FAHRENHEIT, BG 98.6 FAHREN (96.0-98.6)
[2019-05-21 12:36] LABS: CPAP, BG 0 cm H2O; O2 DEVICE,BLOOD GAS VENTILATOR (ROOM AIR); PEEP,BG 0 cm H2O; PRESSURE SUPPORT, BG 8 cm H2O; SITE, BLOOD GAS RT RADIAL; VENT MODE, BG SPONTANEOUS (ROOM AIR)
[2019-05-21 12:37] LABS: SPONTANEOUS VT, BG 685 ml
[2019-05-21] MEDS ORDERED: LEVOFLOXACIN 500 MG/D5% WATER 100 ML IV SCH (15:00)
[2019-05-21 15:17] LABS: GLUCOSE,POINT OF CARE 140 MG/DL (70-110)
[2019-05-21 16:00] VITALS: BP 185/91
[2019-05-21] MEDS ORDERED: HydrALAZINE HCL 20 MG/ML VIAL IVP PRN (16:30)
[2019-05-21 20:00] VITALS: BP 160/75
[2019-05-21 20:01] LABS: GLUCOSE,POINT OF CARE 117 MG/DL (70-110)
[2019-05-21] MEDS ORDERED: SODIUM CHLORIDE 0.9% 250 ML IV ONE (23:24)
[2019-05-22] VITALS (9 sets, daily range): BP systolic 129–182; BP diastolic 76–90
[2019-05-22] MEDS: NYSTATIN 500,000 UNITS/5 ML SUSPENSION UDCUP PO SCH ×4 (00:13→17:56)
[2019-05-22] MEDS: INSULIN LISPRO 100 UNITS/ML SQ PRN ×2 (00:14→17:57)
[2019-05-22 01:26] LABS: GLUCOSE,POINT OF CARE 171 MG/DL (70-110)
[2019-05-22] MEDS: ALBUTEROL SULFATE 2.5 MG/0.5 ML NEB SOLUTION NEB SCH ×6 (03:03→23:00)
[2019-05-22] MEDS: IPRATROPIUM BROMIDE 0.5 MG/2.5 ML NEB SOLUTION NEB SCH ×6 (03:03→23:00)
[2019-05-22] MEDS: HydrALAZINE HCL 50 MG TABLET PO SCH ×4 (03:04→20:11)
[2019-05-22 06:20] LABS: CALCIUM, TOTAL 7.8 mg/dL (8.8-10.5); CREATININE 5.5 mg/dL (0.60-1.30); POTASSIUM 3.3 mmol/L (3.5-5.1); VANCOMYCIN,RANDOM 18.6 mcg/mL (25.0-50.0)
[2019-05-22 06:21] LABS: GLUCOSE,POINT OF CARE 87 MG/DL (70-110)
[2019-05-22] MEDS: CloNIDine HCL 0.2 MG TABLET PO SCH ×4 (08:00→16:11)
[2019-05-22] MEDS: NICOTINE 21 MG/24 HOUR PATCH TD SCH (08:33)
[2019-05-22] MEDS: FUROSEMIDE 40 MG/4 ML VIAL IVP SCH ×3 (08:33→20:12)
[2019-05-22] MEDS: FAMOTIDINE 20 MG TABLET PO SCH (08:34)
[2019-05-22] MEDS: ASPIRIN 81 MG CHEWABLE TABLET PO SCH (08:34)
[2019-05-22] MEDS: HEPARIN SODIUM,PORCINE 5,000 UNITS/ML VIAL SQ SCH ×2 (08:34→20:11)
[2019-05-22] MEDS: GENTAMICIN SULFATE 0.1% 15 GM CREAM TP SCH (08:35)
[2019-05-22] MEDS: AmLODIPine BESYLATE 10 MG TABLET PO SCH (08:35)
[2019-05-22] MEDS: DOCUSATE SODIUM 100 MG CAPSULE PO SCH ×3 (08:36→20:11)
[2019-05-22] MEDS ORDERED: VANCOMYCIN HCL 1 GM/D5% WATER 200 ML IV ONE (09:00)
[2019-05-22 12:25] LABS: GLUCOSE,POINT OF CARE 107 MG/DL (70-110)
[2019-05-22 18:17] LABS: GLUCOSE,POINT OF CARE 238 MG/DL (70-110)
[2019-05-22] MEDS ORDERED: HEPARIN SODIUM,PORCINE 1,000 UNITS/ML VIAL IVP ONE (18:29)
[2019-05-22] MEDS ORDERED: CEFTAZIDIME PENTAHYDRATE IP PRN (23:00)
[2019-05-22] MEDS ORDERED: DIANEAL PD IP PRN (23:00)
[2019-05-22] MEDS ORDERED: DEXTROSE IP PRN (23:00)
[2019-05-23] MEDS: NYSTATIN 500,000 UNITS/5 ML SUSPENSION UDCUP PO SCH ×4 (00:01→17:39)
[2019-05-23] MEDS: CloNIDine HCL 0.2 MG TABLET PO SCH ×3 (00:01→15:47)
[2019-05-23] MEDS: INSULIN LISPRO 100 UNITS/ML SQ PRN ×5 (00:10→20:05)
[2019-05-23 00:11] VITALS: BP 173/80
[2019-05-23] MEDS: IPRATROPIUM BROMIDE 0.5 MG/2.5 ML NEB SOLUTION NEB SCH ×6 (03:00→23:00)
[2019-05-23] MEDS: ALBUTEROL SULFATE 2.5 MG/0.5 ML NEB SOLUTION NEB SCH ×6 (03:00→23:00)
[2019-05-23] MEDS: HydrALAZINE HCL 50 MG TABLET PO SCH ×4 (04:44→20:01)
[2019-05-23 05:45] LABS: GLUCOMETER DEV NAME(LOC) 5S.1; GLUCOSE,POINT OF CARE 246 MG/DL (70-110)
[2019-05-23] MEDS: HEPARIN SODIUM,PORCINE 5,000 UNITS/ML VIAL SQ SCH ×2 (08:50→20:01)
[2019-05-23] MEDS: FAMOTIDINE 20 MG TABLET PO SCH (08:51)
[2019-05-23] MEDS: EPOETIN ALFA 10,000 UNITS/ML VIAL SQ SCH (08:51)
[2019-05-23] MEDS: NICOTINE 21 MG/24 HOUR PATCH TD SCH (08:51)
[2019-05-23] MEDS: AmLODIPine BESYLATE 10 MG TABLET PO SCH (08:51)
[2019-05-23] MEDS: ASPIRIN 81 MG CHEWABLE TABLET PO SCH (08:51)
[2019-05-23] MEDS: GENTAMICIN SULFATE 0.1% 15 GM CREAM TP SCH (08:51)
[2019-05-23] MEDS: FUROSEMIDE 40 MG/4 ML VIAL IVP SCH ×2 (08:51→20:01)
[2019-05-23] MEDS: DOCUSATE SODIUM 100 MG CAPSULE PO SCH ×2 (08:52→20:01)
[2019-05-23 09:31] VITALS: BP 126/72
[2019-05-23 11:58] VITALS: BP 160/77
[2019-05-23 12:10] LABS: GLUCOMETER DEV NAME(LOC) 5S.2A; GLUCOSE,POINT OF CARE 180 MG/DL (70-110)
[2019-05-23 12:35] LABS: GLUCOMETER DEV NAME(LOC) 5N.2; GLUCOSE,POINT OF CARE 210 MG/DL (70-110)
[2019-05-23 15:41] VITALS: BP 162/86
[2019-05-23 18:20] LABS: GLUCOMETER DEV NAME(LOC) 5N.2; GLUCOSE,POINT OF CARE 174 MG/DL (70-110)
[2019-05-23 20:15] VITALS: BP 150/81
[2019-05-23 23:58] VITALS: BP 154/83
[2019-05-24] MEDS: NYSTATIN 500,000 UNITS/5 ML SUSPENSION UDCUP PO SCH ×3 (00:09→12:00)
[2019-05-24 00:56] LABS: GLUCOMETER DEV NAME(LOC) 5N.2; GLUCOSE,POINT OF CARE 243 MG/DL (70-110)
[2019-05-24] MEDS: IPRATROPIUM BROMIDE 0.5 MG/2.5 ML NEB SOLUTION NEB SCH ×3 (03:00→12:35)
[2019-05-24] MEDS: ALBUTEROL SULFATE 2.5 MG/0.5 ML NEB SOLUTION NEB SCH ×3 (03:00→12:35)
[2019-05-24] MEDS: HydrALAZINE HCL 50 MG TABLET PO SCH ×2 (04:37→08:31)
[2019-05-24 05:19] VITALS: BP 146/82
[2019-05-24] MEDS: INSULIN LISPRO 100 UNITS/ML SQ PRN (05:45)
[2019-05-24 06:49] LABS: GLUCOMETER DEV NAME(LOC) 5S.1; GLUCOSE,POINT OF CARE 185 MG/DL (70-110)
[2019-05-24 07:50] VITALS: BP 144/75
[2019-05-24] MEDS: CloNIDine HCL 0.2 MG TABLET PO SCH ×2 (08:00)
[2019-05-24] MEDS: NICOTINE 21 MG/24 HOUR PATCH TD SCH (08:29)
[2019-05-24] MEDS: DOCUSATE SODIUM 100 MG CAPSULE PO SCH (08:31)
[2019-05-24] MEDS: FUROSEMIDE 40 MG/4 ML VIAL IVP SCH (08:31)
[2019-05-24] MEDS: ASPIRIN 81 MG CHEWABLE TABLET PO SCH (08:31)
[2019-05-24] MEDS: AmLODIPine BESYLATE 10 MG TABLET PO SCH (08:31)
[2019-05-24] MEDS: HEPARIN SODIUM,PORCINE 5,000 UNITS/ML VIAL SQ SCH (08:32)
[2019-05-24] MEDS: GENTAMICIN SULFATE 0.1% 15 GM CREAM TP SCH (08:33)
[2019-05-24] MEDS: FAMOTIDINE 20 MG TABLET PO SCH (08:35)
[2019-05-24] MEDS ORDERED: VITAMIN B COMP/VIT C/FOLIC ACID CAPSULE PO SCH (09:00)
[2019-05-24] MEDS ORDERED: CLON.2 PO (10:06)
[2019-05-24] MEDS ORDERED: HYDR-2924 PO (10:06)
[2019-05-24] MEDS ORDERED: AMLO10TA55 PO (10:06)
[2019-05-24] MEDS ORDERED: B CO1CAP6 PO (10:06)
[2019-05-24] MEDS ORDERED: SODIUM CHLORIDE 0.9% 250 ML IV ONE (11:03)
[2019-05-24 11:44] VITALS: BP 150/74
== END 2019-05-24 13:55 | disposition home or self-care (01) | DRG 871 ==
LOC: EMS 16:58 → 5S 21:11 → 4E 05-18 19:26 → 5N 05-19 03:58 → ICU 05-19 08:00 → 5N 05-22 21:05
PROVIDERS: ADMIT Internal Medicine; ATTEND Internal Medicine
PROC: 5A1D70Z Performance of Urinary Filtration, Intermittent, Less than 6 Hours Per Day (ICD-10-PCS; 2019-05-18)
PROC: 0BH17EZ Insertion of Endotracheal Airway into Trachea, Via Natural or Artificial Opening (ICD-10-PCS; principal; 2019-05-19)
PROC: 05HM33Z Insertion of Infusion Device into Right Internal Jugular Vein, Percutaneous Approach (ICD-10-PCS; 2019-05-19)
PROC: B543ZZA Ultrasonography of Right Jugular Veins, Guidance (ICD-10-PCS; 2019-05-19)
PROC: 05HN33Z Insertion of Infusion Device into Left Internal Jugular Vein, Percutaneous Approach (ICD-10-PCS; 2019-05-19)
PROC: B544ZZA Ultrasonography of Left Jugular Veins, Guidance (ICD-10-PCS; 2019-05-19)
PROC: 5A09357 Assistance with Respiratory Ventilation, Less than 24 Consecutive Hours, Continuous Positive Airway Pressure (ICD-10-PCS; 2019-05-19)
PROC: 5A1945Z Respiratory Ventilation, 24-96 Consecutive Hours (ICD-10-PCS; 2019-05-19)
PROC: 5A1D70Z Performance of Urinary Filtration, Intermittent, Less than 6 Hours Per Day (ICD-10-PCS; 2019-05-19)
PROC: 5A1D70Z Performance of Urinary Filtration, Intermittent, Less than 6 Hours Per Day (ICD-10-PCS; 2019-05-20)
PROC: 5A1D70Z Performance of Urinary Filtration, Intermittent, Less than 6 Hours Per Day (ICD-10-PCS; 2019-05-21)
PROC: 5A1D70Z Performance of Urinary Filtration, Intermittent, Less than 6 Hours Per Day (ICD-10-PCS; 2019-05-22)
PROC: 5A09357 Assistance with Respiratory Ventilation, Less than 24 Consecutive Hours, Continuous Positive Airway Pressure (ICD-10-PCS; 2019-05-23)
PROC: 5A1D70Z Performance of Urinary Filtration, Intermittent, Less than 6 Hours Per Day (ICD-10-PCS; 2019-05-23)
PROC: 5A1D70Z Performance of Urinary Filtration, Intermittent, Less than 6 Hours Per Day (ICD-10-PCS; 2019-05-24)
DX: A41.9 Sepsis, unspecified organism (principal); N18.6 End stage renal disease; J96.02 Acute respiratory failure with hypercapnia; K65.0 Generalized (acute) peritonitis; I12.0 Hypertensive chronic kidney disease with stage 5 chronic kidney disease or end stage renal disease; D63.1 Anemia in chronic kidney disease; E11.22 Type 2 diabetes mellitus with diabetic chronic kidney disease; F17.210 Nicotine dependence, cigarettes, uncomplicated; E11.21 Type 2 diabetes mellitus with diabetic nephropathy; D63.8 Anemia in other chronic diseases classified elsewhere; E66.9 Obesity, unspecified; G47.33 Obstructive sleep apnea (adult) (pediatric); E66.01 Morbid (severe) obesity due to excess calories; B96.89 Other specified bacterial agents as the cause of diseases classified elsewhere; Z83.3 Family history of diabetes mellitus; Z99.2 Dependence on renal dialysis; Z68.39 Body mass index [BMI] 39.0-39.9, adult
CPT/HCPCS: 36600; 70450; 71250; 74177; 82805; 83605; 83735; 84100; 86706; 87040; 87070; 87081; 87086; 87205; 87340; 89051; 92610; 93005; 94002; 94003; 94640; 94660; 96374; 96375; 96376; G0378; J0360; J0696; J0713; J0885; J1644; J1940; J1956; J2060; J2270; J2405; J2704; J3370; J3490; J7030; J7050; J7060

== ENCOUNTER 2019-08-04 16:59 | Inpatient (IN) | payer MEDICARE, MEDICAID ==
[~2019-08-04] VITALS: Ht 170.2 cm; Wt 108.4 kg
[~2019-08-04 16:59] MED LIST changes: +AMLO10TA55 PO; +B CO1CAP6 PO; -CEPH500 PO; +CLON0.2T2 PO; +HYDR-2924 PO
[2019-08-04 17:22] LABS: GLUCOSE,POINT OF CARE 115 MG/DL (70-110)
[2019-08-04] MEDS ORDERED: 0.9% SODIUM CHLORIDE 10 ML SYRINGE IVP PRN ×2 (17:45→22:15)
[2019-08-04 18:20] LABS: BASOPHILS % (AUTO) 1.1 % (0.0-2.0); EOSINOPHILS % (AUTO) 2.9 % (1.0-6.0); HEMATOCRIT 26.3 % (41-53); HEMOGLOBIN 8.8 g/dL (13.5-17.5); LYMPHOCYTES # (AUTO) 1.1 K/uL (1.0-4.8); LYMPHOCYTES % (AUTO) 10.8 % (22.0-44.0); MEAN CORPUSCULAR HEMOGLOBIN 29.9 pg (26.0-34.0); MEAN CORPUSCULAR HGB CONC 33.4 G/dL (31.0-37.0); MEAN CORPUSCULAR VOLUME 89 fL (80-100); MONOCYTES # (AUTO) 0.6 K/uL (0.1-1.0); MONOCYTES % (AUTO) 6.2 % (2.0-9.0); NEUTROPHILS # (AUTO) 8.2 K/uL (1.8-7.7); PLATELET COUNT (AUTO) 175 K/uL (150-450); RED BLOOD CELL COUNT(AUTO) 2.94 MIL/uL (4.50-5.90); RED CELL DISTRIBUTION WIDTH 17.5 % (11.5-14.5)
[2019-08-04 18:28] LABS: PROTHROMBIN TIME 10.1 SEC (9.4-11.6)
[2019-08-04 18:36] LABS: ALBUMIN 2.4 g/dL (3.4-5.0); BILIRUBIN,TOTAL 0.3 mg/dL (0.1-1.0); CALCIUM, TOTAL 6.8 mg/dL (8.8-10.5); CREATININE 16.33 mg/dL (0.60-1.30); POTASSIUM 5.1 mmol/L (3.5-5.1); TOTAL PROTEIN, SERUM 6.2 g/dL (6.4-8.2)
[2019-08-04 18:41] LABS: LACTIC ACID 1.1 mmol/L (0.4-2.0)
[2019-08-04] MEDS ORDERED: SODIUM BICARBONATE [ADULT] 8.4% 50 MEQ/50 ML SYRINGE IVP ONE (19:45)
[2019-08-04] MEDS ORDERED: ONDANSETRON HCL 4 MG/2 ML VIAL IVP PRN (22:15)
[2019-08-04] MEDS: DOCUSATE SODIUM 100 MG CAPSULE PO SCH (22:15)
[2019-08-04] MEDS ORDERED: DEXTROSE 50%-WATER 25 GM/50 ML SYRINGE IVP PRN (22:15)
[2019-08-04] MEDS ORDERED: OxyCODONE HCL/ACETAMINOPHEN 5-325 MG TABLET PO PRN ×2 (22:15)
[2019-08-04 23:57] VITALS: BP 190/96
[2019-08-05] MEDS: CloNIDine HCL 0.2 MG TABLET PO SCH ×3 (00:16→16:00)
[2019-08-05 01:30] VITALS: BP 158/85
[2019-08-05 04:32] VITALS: BP 157/82
[2019-08-05 05:51] LABS: BASOPHILS % (AUTO) 0.7 % (0.0-2.0); HEMATOCRIT 24.5 % (41-53); HEMOGLOBIN 8.2 g/dL (13.5-17.5); LYMPHOCYTES # (AUTO) 1.2 K/uL (1.0-4.8); LYMPHOCYTES % (AUTO) 12.1 % (22.0-44.0); MEAN CORPUSCULAR HEMOGLOBIN 29.5 pg (26.0-34.0); MEAN CORPUSCULAR HGB CONC 33.5 G/dL (31.0-37.0); MEAN CORPUSCULAR VOLUME 88 fL (80-100); MONOCYTES # (AUTO) 0.8 K/uL (0.1-1.0); MONOCYTES % (AUTO) 7.7 % (2.0-9.0); NEUTROPHILS # (AUTO) 7.8 K/uL (1.8-7.7); NEUTROPHILS % (AUTO) 75.5 % (40.0-70.0); PLATELET COUNT (AUTO) 167 K/uL (150-450); RED BLOOD CELL COUNT(AUTO) 2.79 MIL/uL (4.50-5.90)
[2019-08-05 06:04] LABS: GLUCOMETER DEV NAME(LOC) 5S.1; GLUCOSE,POINT OF CARE 61 MG/DL (70-110)
[2019-08-05 06:10] LABS: CALCIUM, TOTAL 6.8 mg/dL (8.8-10.5); CREATININE 16.56 mg/dL (0.60-1.30)
[2019-08-05] MEDS: CALCIUM ACETATE 667 MG CAPSULE PO SCH ×3 (08:00→18:00)
[2019-08-05] MEDS ORDERED: AmLODIPine BESYLATE 10 MG TABLET PO SCH (09:00)
[2019-08-05] MEDS: VITAMIN B COMP/VIT C/FOLIC ACID CAPSULE PO SCH (09:00)
[2019-08-05] MEDS: ASPIRIN 81 MG CHEWABLE TABLET PO SCH (09:00)
[2019-08-05] MEDS: FAMOTIDINE 10 MG/ML 2 ML VIAL IVP SCH (09:00)
[2019-08-05] MEDS: DOCUSATE SODIUM 100 MG CAPSULE PO SCH ×2 (09:00→21:00)
[2019-08-05 11:32] LABS: GLUCOMETER DEV NAME(LOC) 5S.2A; GLUCOSE,POINT OF CARE 101 MG/DL (70-110)
[2019-08-05] MEDS ORDERED: HEPARIN SODIUM,PORCINE 1,000 UNITS/ML VIAL IVP ONE (12:00)
[2019-08-05 12:40] VITALS: BP 185/74
[2019-08-05] MEDS ORDERED: NALOXONE HCL 0.4 MG/ML VIAL ONE (13:23)
[2019-08-05] MEDS ORDERED: MIDAZOLAM HCL 2 MG/2 ML VIAL ONE ×2 (13:23→15:13)
[2019-08-05] MEDS ORDERED: FentaNYL CITRATE-PF 100 MCG/2 ML VIAL ONE ×2 (13:23→15:13)
[2019-08-05] MEDS ORDERED: FLUMAZENIL 0.1 MG/ML 5 ML VIAL IVP ONE (13:23)
[2019-08-05] MEDS ORDERED: LIDOCAINE 1%/EPI 1:200,000/PF 10 ML VIAL ONE (13:51)
[2019-08-05] MEDS ORDERED: HEPARIN SODIUM 1000 UNITS/NS 500 ML ONE (13:51)
[2019-08-05] MEDS ORDERED: HEPARIN SODIUM,PORCINE 1,000 UNITS/ML 10 ML VIAL ONE (13:51)
[2019-08-05] MEDS ORDERED: CeFAZolin 1 GM/DEXTROSE 50 ML IV ONE ×2 (14:41)
[2019-08-05] MEDS ORDERED: SODIUM CHLORIDE 0.9% 250 ML IV ONE (14:50)
[2019-08-05] MEDS ORDERED: MIDAZOLAM HCL 2 MG/2 ML VIAL IM ONE (15:09)
[2019-08-05] MEDS ORDERED: CeFAZolin 2 GM/DEXTROSE 50 ML IV ONE (15:09)
[2019-08-05] MEDS ORDERED: FentaNYL CITRATE-PF 100 MCG/2 ML VIAL IVP ONE (15:10)
[2019-08-05 16:47] VITALS: BP 175/88
[2019-08-05] MEDS: AmLODIPine BESYLATE 10 MG TABLET PO SCH (21:24)
[2019-08-05] MEDS: INSULIN LISPRO 100 UNITS/ML SQ PRN (21:32)
[2019-08-06] VITALS (8 sets, daily range): BP systolic 136–220; BP diastolic 68–97
[2019-08-06] MEDS: CloNIDine HCL 0.2 MG TABLET PO SCH ×4 (00:49→23:51)
[2019-08-06 02:13] LABS: GLUCOMETER DEV NAME(LOC) 5S.1; GLUCOSE,POINT OF CARE 231 MG/DL (70-110)
[2019-08-06 07:56] LABS: BASOPHILS % (AUTO) 0.4 % (0.0-2.0); EOSINOPHILS % (AUTO) 2.6 % (1.0-6.0); HEMATOCRIT 26.4 % (41-53); HEMOGLOBIN 8.4 g/dL (13.5-17.5); LYMPHOCYTES % (AUTO) 8.7 % (22.0-44.0); MEAN CORPUSCULAR HEMOGLOBIN 28.5 pg (26.0-34.0); MEAN CORPUSCULAR HGB CONC 31.9 G/dL (31.0-37.0); MEAN CORPUSCULAR VOLUME 89 fL (80-100); MONOCYTES # (AUTO) 0.9 K/uL (0.1-1.0); MONOCYTES % (AUTO) 8.1 % (2.0-9.0); NEUTROPHILS # (AUTO) 9.3 K/uL (1.8-7.7); NEUTROPHILS % (AUTO) 80.2 % (40.0-70.0); PLATELET COUNT (AUTO) 147 K/uL (150-450); RED BLOOD CELL COUNT(AUTO) 2.95 MIL/uL (4.50-5.90); RED CELL DISTRIBUTION WIDTH 16.8 % (11.5-14.5)
[2019-08-06 08:17] LABS: CALCIUM, TOTAL 7.2 mg/dL (8.8-10.5); CREATININE 12.51 mg/dL (0.60-1.30); MAGNESIUM 2.9 mg/dL (1.80-2.40); POTASSIUM 4.8 mmol/L (3.5-5.1)
[2019-08-06 08:35] LABS: PHOSPHORUS 14.7 mg/dL (2.5-4.9)
[2019-08-06] MEDS: AmLODIPine BESYLATE 10 MG TABLET PO SCH ×2 (09:00→22:18)
[2019-08-06] MEDS: VITAMIN B COMP/VIT C/FOLIC ACID CAPSULE PO SCH (10:49)
[2019-08-06] MEDS: FAMOTIDINE 10 MG/ML 2 ML VIAL IVP SCH (10:49)
[2019-08-06] MEDS: CALCIUM ACETATE 667 MG CAPSULE PO SCH ×3 (10:49→17:30)
[2019-08-06] MEDS: ASPIRIN 81 MG CHEWABLE TABLET PO SCH (10:51)
[2019-08-06] MEDS: DOCUSATE SODIUM 100 MG CAPSULE PO SCH ×2 (10:52→22:18)
[2019-08-06] MEDS ORDERED: SODIUM CHLORIDE 0.9% 1,000 ML ONE (11:08)
[2019-08-06 11:10] LABS: GLUCOMETER DEV NAME(LOC) 5S.2A; GLUCOSE,POINT OF CARE 157 MG/DL (70-110)
[2019-08-06] MEDS ORDERED: HEPARIN SODIUM,PORCINE 1,000 UNITS/ML VIAL IVP ONE (12:00)
[2019-08-06] MEDS ORDERED: SODIUM CHLORIDE 0.9% 100 ML ONE (15:34)
[2019-08-06 16:12] LABS: ALBUMIN 2.6 g/dL (3.4-5.0); BILIRUBIN,TOTAL 0.3 mg/dL (0.1-1.0); CALCIUM, TOTAL 8.6 mg/dL (8.8-10.5); CREATININE 6.57 mg/dL (0.60-1.30)
[2019-08-06 16:17] LABS: BASOPHILS % (AUTO) 0.1 % (0.0-2.0); EOSINOPHILS % (AUTO) 0.2 % (1.0-6.0); HEMOGLOBIN 9.3 g/dL (13.5-17.5); LYMPHOCYTES # (AUTO) 0.5 K/uL (1.0-4.8); LYMPHOCYTES % (AUTO) 2.3 % (22.0-44.0); MEAN CORPUSCULAR HEMOGLOBIN 28.6 pg (26.0-34.0); MEAN CORPUSCULAR HGB CONC 32.2 G/dL (31.0-37.0); MEAN CORPUSCULAR VOLUME 89 fL (80-100); MONOCYTES # (AUTO) 1.2 K/uL (0.1-1.0); MONOCYTES % (AUTO) 5.6 % (2.0-9.0); NEUTROPHILS # (AUTO) 19.4 K/uL (1.8-7.7); NEUTROPHILS % (AUTO) 91.8 % (40.0-70.0); PLATELET COUNT (AUTO) 177 K/uL (150-450); RED BLOOD CELL COUNT(AUTO) 3.25 MIL/uL (4.50-5.90); RED CELL DISTRIBUTION WIDTH 16.9 % (11.5-14.5)
[2019-08-06 16:19] LABS: PLATELET MORPHOLOGY COMMENT GIANT PLTS PRESENT
[2019-08-06] MEDS ORDERED: VECURONIUM BROMIDE 10 MG/VIAL IVP ONE ×2 (16:21→16:45)
[2019-08-06] MEDS ORDERED: ETOMIDATE 2 MG/ML 10 ML VIAL IVP ONE ×2 (16:21→16:45)
[2019-08-06 16:34] LABS: ABG A-A DIFF O2 460.9 mmHg (10-20.0); ABG BASE EXCESS -6.5 mmol/L (-2.0-3.0); ABG CARBOXYHEMOGLOBIN 0.9 % (0.0-1.5); ABG HCO3 18.4 mmol/L (22.0-26.0); ABG METHEMOGLOBIN 0.3 % (0.0-1.5); ABG OXYGEN SATURATION 98.2 % (95.0-98.0); ABG PCO2 92 mmHg (35-45); ABG PH 7.038 (7.35-7.450); O2 DEVICE,BLOOD GAS NON REBREATHER (ROOM AIR); PO2, ARTERIAL BG 160.3 mmHg (84.0-92.0); SITE, BLOOD GAS RT RADIAL; SOURCE, BLOOD GAS ARTERIAL; TEMPERATURE, FAHRENHEIT, BG 98.6 FAHREN (96.0-98.6)
[2019-08-06] MEDS ORDERED: RAPID SEQUENCE KIT [RSI] 1 EACH KIT ONE (16:34)
[2019-08-06] MEDS ORDERED: PROPOFOL 1000 MG/ISO-OSM 100 ML IV PRN (16:45)
[2019-08-06 18:07] LABS: GLUCOMETER DEV NAME(LOC) 5S.2A; GLUCOSE,POINT OF CARE 176 MG/DL (70-110)
[2019-08-06] MEDS ORDERED: FentaNYL CITRATE PF 500 MCG in DEXTROSE 5%-WATER 90 ML IV PRN (18:30)
[2019-08-06] MEDS ORDERED: PIPERACILLIN SODIUM/TAZOBACTAM 0.75 GM in DEXTROSE 5%-WATER 50 ML IV PRN (18:30)
[2019-08-06] MEDS: PROPOFOL 1000 MG/ISO-OSM 100 ML IV PRN ×2 (19:34→22:19)
[2019-08-06] MEDS ORDERED: SODIUM CHLORIDE 0.9% 250 ML IV ONE (19:53)
[2019-08-06 19:54] LABS: ABG A-A DIFF O2 248.6 mmHg (10-20.0); ABG BASE EXCESS -4.5 mmol/L (-2.0-3.0); ABG CARBOXYHEMOGLOBIN 0.5 % (0.0-1.5); ABG HCO3 20.7 mmol/L (22.0-26.0); ABG METHEMOGLOBIN 0.3 % (0.0-1.5); ABG OXYGEN CONTENT 11.3 mL/dL (15.0-23.0); ABG OXYHEMOGLOBIN 91.3 % (94.0-100.0); ABG PCO2 46 mmHg (35-45); ABG PH 7.293 (7.35-7.450); ABG TOTAL HEMOGLOBIN 8.7 G/dL (12.0-18.0); PO2, ARTERIAL BG 58.6 mmHg (84.0-92.0); SOURCE, BLOOD GAS ARTERIAL; TEMPERATURE, FAHRENHEIT, BG 94.4 FAHREN (96.0-98.6)
[2019-08-06 19:55] LABS: O2 DEVICE,BLOOD GAS VENTILATOR (ROOM AIR); PEEP,BG 5 cm H2O; SITE, BLOOD GAS RT BRACHIAL; VT, ABG 450 ml
[2019-08-06] MEDS: PIPERACILLIN SODIUM/TAZOBACTAM 2.25 GM in DEXTROSE 5%-WATER 50 ML IV SCH (19:55)
[2019-08-06 20:18] LABS: APPEARANCE,URINE CLEAR (CLEAR); BILIRUBIN,URINE NEGATIVE (NEGATIVE); GLUCOSE, URINE (UA) 500 mg/dL (NEGATIVE); KETONES,URINE NEGATIVE (NEGATIVE); LEUKOCYTE ESTERASE ,URINE NEGATIVE (NEGATIVE); NITRATE,URINE NEGATIVE (NEGATIVE); OCCULT BLOOD,URINE MODERATE (NEGATIVE); PROTEIN,URINE SEE CONFIRM (NEGATIVE); UROBILINOGEN,URINE 0.2 mg/dL (<=1.0)
[2019-08-06 20:24] LABS: AMPHET/METH SCREEN,URINE NEGATIVE (NEGATIVE); BARBITURATE SCREEN, URINE NEGATIVE (NEGATIVE); BENZODIAZEPINES SCREEN,URINE NEGATIVE (NEGATIVE); CANNABINOID SCREEN,URINE NEGATIVE (NEGATIVE); COCAINE SCREEN,URINE NEGATIVE (NEGATIVE); METHADONE SCREEN, URINE NEGATIVE (NEGATIVE); OPIATE SCREEN,URINE NEGATIVE (NEGATIVE)
[2019-08-06] MEDS: HydrALAZINE HCL 20 MG/ML VIAL IVP PRN (20:28)
[2019-08-06 20:29] LABS: PHENCYCLIDINE SCREEN,URINE NEGATIVE (NEGATIVE)
[2019-08-06 20:34] LABS: BACTERIA,URINE Few /HPF (None Seen); SQUAMOUS EPITHELIAL CELL,UR Few /LPF (None Seen); SULFOSALICYLIC ACID,URINE 4+ (Negative); WBC,URINE 0-2 /HPF (0-5)
[2019-08-06 21:46] LABS: GLUCOSE,POINT OF CARE 166 MG/DL (70-110)
[2019-08-06] MEDS: INSULIN LISPRO 100 UNITS/ML SQ PRN (21:53)
[2019-08-06 23:32] LABS: GLUCOMETER DEV NAME(LOC) 5S.1; GLUCOSE,POINT OF CARE 171 MG/DL (70-110)
[2019-08-07] VITALS (8 sets, daily range): BP systolic 122–168; BP diastolic 38–89
[2019-08-07] MEDS: PROPOFOL 1000 MG/ISO-OSM 100 ML IV PRN ×4 (03:53→15:36)
[2019-08-07] MEDS: PIPERACILLIN SODIUM/TAZOBACTAM 2.25 GM in DEXTROSE 5%-WATER 50 ML IV SCH ×3 (04:12→19:53)
[2019-08-07 05:30] LABS: BASOPHILS % (AUTO) 0.2 % (0.0-2.0); HEMATOCRIT 23.8 % (41-53); HEMOGLOBIN 7.9 g/dL (13.5-17.5); LYMPHOCYTES # (AUTO) 0.9 K/uL (1.0-4.8); LYMPHOCYTES % (AUTO) 8.5 % (22.0-44.0); MEAN CORPUSCULAR HEMOGLOBIN 29.4 pg (26.0-34.0); MEAN CORPUSCULAR HGB CONC 33.3 G/dL (31.0-37.0); MEAN CORPUSCULAR VOLUME 88 fL (80-100); MONOCYTES # (AUTO) 0.7 K/uL (0.1-1.0); MONOCYTES % (AUTO) 6.3 % (2.0-9.0); NEUTROPHILS # (AUTO) 9.1 K/uL (1.8-7.7); PLATELET COUNT (AUTO) 121 K/uL (150-450); RED CELL DISTRIBUTION WIDTH 16.6 % (11.5-14.5)
[2019-08-07 05:44] LABS: CALCIUM, TOTAL 7.6 mg/dL (8.8-10.5); CREATININE 8.23 mg/dL (0.60-1.30); POTASSIUM 4.3 mmol/L (3.5-5.1)
[2019-08-07 05:53] LABS: % IRON SATURATION 28.9 % (30-44)
[2019-08-07 07:00] LABS: GLUCOSE,POINT OF CARE 74 MG/DL (70-110)
[2019-08-07 07:30] LABS: GLUCOSE,POINT OF CARE 155 MG/DL (70-110)
[2019-08-07] MEDS: ASPIRIN 81 MG CHEWABLE TABLET PO SCH (07:59)
[2019-08-07] MEDS: VITAMIN B COMP/VIT C/FOLIC ACID CAPSULE PO SCH (07:59)
[2019-08-07] MEDS: DOCUSATE SODIUM 100 MG CAPSULE PO SCH ×2 (08:00→20:10)
[2019-08-07] MEDS: FAMOTIDINE 10 MG/ML 2 ML VIAL IVP SCH (08:00)
[2019-08-07] MEDS: CALCIUM ACETATE 667 MG CAPSULE PO SCH ×3 (08:00→16:58)
[2019-08-07] MEDS: CloNIDine HCL 0.2 MG TABLET PO SCH ×3 (08:00→23:42)
[2019-08-07 08:04] LABS: GLUCOSE,POINT OF CARE 66 MG/DL (70-110)
[2019-08-07] MEDS: AmLODIPine BESYLATE 10 MG TABLET PO SCH ×2 (08:04→20:11)
[2019-08-07 08:40] LABS: GLUCOSE,POINT OF CARE 145 MG/DL (70-110)
[2019-08-07 11:53] LABS: GLUCOSE,POINT OF CARE 97 MG/DL (70-110)
[2019-08-07] MEDS ORDERED: GADOBUTROL 1 MMOL/ML 10 ML VIAL IVP ONE (13:39)
[2019-08-07 17:41] LABS: ABG A-A DIFF O2 156.2 mmHg (10-20.0); ABG CARBOXYHEMOGLOBIN 0.4 % (0.0-1.5); ABG HCO3 22.8 mmol/L (22.0-26.0); ABG METHEMOGLOBIN 0.3 % (0.0-1.5); ABG OXYGEN CONTENT 11.6 mL/dL (15.0-23.0); ABG OXYGEN SATURATION 94.4 % (95.0-98.0); ABG OXYHEMOGLOBIN 93.7 % (94.0-100.0); ABG PCO2 46 mmHg (35-45); ABG PH 7.337 (7.35-7.450); ABG TOTAL HEMOGLOBIN 8.7 G/dL (12.0-18.0); O2 DEVICE,BLOOD GAS VENTILATOR (ROOM AIR); PO2, ARTERIAL BG 76.5 mmHg (84.0-92.0); SITE, BLOOD GAS LFT RADIAL; SOURCE, BLOOD GAS ARTERIAL; TEMPERATURE, FAHRENHEIT, BG 98.9 FAHREN (96.0-98.6)
[2019-08-07 17:42] LABS: CPAP, BG 5 cm H2O; PRESSURE SUPPORT, BG 8 cm H2O; VENT MODE, BG CPAP (ROOM AIR)
[2019-08-07 18:10] LABS: GLUCOSE,POINT OF CARE 92 MG/DL (70-110)
[2019-08-07 19:37] LABS: ABG A-A DIFF O2 27.3 mmHg (10-20.0); ABG BASE EXCESS -2.8 mmol/L (-2.0-3.0); ABG CARBOXYHEMOGLOBIN 0.5 % (0.0-1.5); ABG HCO3 22.2 mmol/L (22.0-26.0); ABG METHEMOGLOBIN 0.3 % (0.0-1.5); ABG OXYGEN CONTENT 12.6 mL/dL (15.0-23.0); ABG OXYGEN SATURATION 92.5 % (95.0-98.0); ABG OXYHEMOGLOBIN 91.8 % (94.0-100.0); ABG PCO2 41 mmHg (35-45); ABG PH 7.364 (7.35-7.450); ABG TOTAL HEMOGLOBIN 9.7 G/dL (12.0-18.0); PO2, ARTERIAL BG 66.7 mmHg (84.0-92.0); SOURCE, BLOOD GAS ARTERIAL; TEMPERATURE, FAHRENHEIT, BG 98.5 FAHREN (96.0-98.6)
[2019-08-07 19:39] LABS: SITE, BLOOD GAS RT RADIAL
[2019-08-07 19:40] LABS: O2 DEVICE,BLOOD GAS CANNULA (ROOM AIR)
[2019-08-07] MEDS: INSULIN LISPRO 100 UNITS/ML SQ PRN (20:50)
[2019-08-08] VITALS (7 sets, daily range): BP systolic 143–206; BP diastolic 63–95
[2019-08-08] MEDS: PIPERACILLIN SODIUM/TAZOBACTAM 2.25 GM in DEXTROSE 5%-WATER 50 ML IV SCH ×4 (04:01→23:40)
[2019-08-08 05:04] LABS: BASOPHILS % (AUTO) 0.4 % (0.0-2.0); EOSINOPHILS % (AUTO) 4.2 % (1.0-6.0); HEMATOCRIT 22.2 % (41-53); HEMOGLOBIN 7.4 g/dL (13.5-17.5); LYMPHOCYTES # (AUTO) 1.5 K/uL (1.0-4.8); LYMPHOCYTES % (AUTO) 15.1 % (22.0-44.0); MEAN CORPUSCULAR HEMOGLOBIN 29.1 pg (26.0-34.0); MEAN CORPUSCULAR HGB CONC 33.2 G/dL (31.0-37.0); MEAN CORPUSCULAR VOLUME 88 fL (80-100); MONOCYTES # (AUTO) 0.9 K/uL (0.1-1.0); MONOCYTES % (AUTO) 8.5 % (2.0-9.0); NEUTROPHILS # (AUTO) 7.2 K/uL (1.8-7.7); NEUTROPHILS % (AUTO) 71.8 % (40.0-70.0); PLATELET COUNT (AUTO) 133 K/uL (150-450); RED BLOOD CELL COUNT(AUTO) 2.53 MIL/uL (4.50-5.90); RED CELL DISTRIBUTION WIDTH 16.9 % (11.5-14.5)
[2019-08-08 05:25] LABS: CALCIUM, TOTAL 7.6 mg/dL (8.8-10.5); CREATININE 9.53 mg/dL (0.60-1.30); MAGNESIUM 2.4 mg/dL (1.80-2.40); PHOSPHORUS 8.7 mg/dL (2.5-4.9); POTASSIUM 4.3 mmol/L (3.5-5.1)
[2019-08-08 06:38] LABS: GLUCOSE,POINT OF CARE 95 MG/DL (70-110)
[2019-08-08 07:11] LABS: GLUCOSE,POINT OF CARE 171 MG/DL (70-110)
[2019-08-08] MEDS: ASPIRIN 81 MG CHEWABLE TABLET PO SCH (08:26)
[2019-08-08] MEDS: CloNIDine HCL 0.2 MG TABLET PO SCH ×3 (08:26→23:38)
[2019-08-08] MEDS: AmLODIPine BESYLATE 10 MG TABLET PO SCH ×2 (08:26→20:37)
[2019-08-08] MEDS: DOCUSATE SODIUM 100 MG CAPSULE PO SCH ×2 (08:26→20:27)
[2019-08-08] MEDS: VITAMIN B COMP/VIT C/FOLIC ACID CAPSULE PO SCH (08:26)
[2019-08-08] MEDS: FAMOTIDINE 10 MG/ML 2 ML VIAL IVP SCH (08:27)
[2019-08-08] MEDS: CALCIUM ACETATE 667 MG CAPSULE PO SCH ×3 (08:27→17:58)
[2019-08-08] MEDS ORDERED: EPOETIN ALFA 10,000 UNITS/ML 2 ML VIAL SQ SCH (09:00)
[2019-08-08] MEDS ORDERED: HEPARIN SODIUM,PORCINE 1,000 UNITS/ML VIAL IVP ONE (12:00)
[2019-08-08] MEDS ORDERED: SODIUM CHLORIDE 0.9% 250 ML IV ONE (12:49)
[2019-08-08] MEDS: INSULIN LISPRO 100 UNITS/ML SQ PRN ×3 (13:19→21:46)
[2019-08-08 13:56] LABS: GLUCOMETER DEV NAME(LOC) 5S.2A; GLUCOSE,POINT OF CARE 231 MG/DL (70-110)
[2019-08-08] MEDS ORDERED: SODIUM CHLORIDE 0.9% 2,000 ML ONE (16:40)
[2019-08-08] MEDS: HydrALAZINE HCL 20 MG/ML VIAL IVP PRN (20:28)
[2019-08-08 21:35] LABS: GLUCOMETER DEV NAME(LOC) 5S.1; GLUCOSE,POINT OF CARE 266 MG/DL (70-110)
[2019-08-09 02:41] VITALS: BP 152/79
[2019-08-09] MEDS: PIPERACILLIN SODIUM/TAZOBACTAM 2.25 GM in DEXTROSE 5%-WATER 50 ML IV SCH ×2 (03:21→13:50)
[2019-08-09 06:35] LABS: BASOPHILS % (AUTO) 0.4 % (0.0-2.0); EOSINOPHILS % (AUTO) 3.1 % (1.0-6.0); HEMATOCRIT 23.1 % (41-53); HEMOGLOBIN 7.7 g/dL (13.5-17.5); LYMPHOCYTES # (AUTO) 0.9 K/uL (1.0-4.8); LYMPHOCYTES % (AUTO) 7.3 % (22.0-44.0); MEAN CORPUSCULAR HEMOGLOBIN 29.2 pg (26.0-34.0); MEAN CORPUSCULAR HGB CONC 33.3 G/dL (31.0-37.0); MEAN CORPUSCULAR VOLUME 88 fL (80-100); MONOCYTES # (AUTO) 0.8 K/uL (0.1-1.0); MONOCYTES % (AUTO) 6.7 % (2.0-9.0); NEUTROPHILS # (AUTO) 10.1 K/uL (1.8-7.7); NEUTROPHILS % (AUTO) 82.5 % (40.0-70.0); PLATELET COUNT (AUTO) 160 K/uL (150-450); RED BLOOD CELL COUNT(AUTO) 2.64 MIL/uL (4.50-5.90); RED CELL DISTRIBUTION WIDTH 16.9 % (11.5-14.5)
[2019-08-09] MEDS: INSULIN LISPRO 100 UNITS/ML SQ PRN ×2 (06:37→18:08)
[2019-08-09 07:44] VITALS: BP 141/84
[2019-08-09] MEDS: CloNIDine HCL 0.2 MG TABLET PO SCH ×2 (08:00→16:12)
[2019-08-09 08:21] LABS: GLUCOMETER DEV NAME(LOC) 5S.2A; GLUCOSE,POINT OF CARE 183 MG/DL (70-110)
[2019-08-09 08:21] LABS: GLUCOMETER DEV NAME(LOC) 5S.1; GLUCOSE,POINT OF CARE 156 MG/DL (70-110)
[2019-08-09] MEDS ORDERED: SODIUM CHLORIDE 0.9% 2,000 ML ONE (08:26)
[2019-08-09] MEDS: VITAMIN B COMP/VIT C/FOLIC ACID CAPSULE PO SCH (08:33)
[2019-08-09] MEDS: ASPIRIN 81 MG CHEWABLE TABLET PO SCH (08:34)
[2019-08-09] MEDS: FAMOTIDINE 10 MG/ML 2 ML VIAL IVP SCH (08:34)
[2019-08-09] MEDS: CALCIUM ACETATE 667 MG CAPSULE PO SCH ×3 (08:34→18:21)
[2019-08-09] MEDS: DOCUSATE SODIUM 100 MG CAPSULE PO SCH (08:36)
[2019-08-09 11:27] VITALS: BP 149/74
[2019-08-09 11:50] LABS: GLUCOMETER DEV NAME(LOC) 5N.1; GLUCOSE,POINT OF CARE 120 MG/DL (70-110)
[2019-08-09] MEDS ORDERED: HEPARIN SODIUM,PORCINE 1,000 UNITS/ML VIAL IVP ONE (12:00)
[2019-08-09] MEDS: AmLODIPine BESYLATE 10 MG TABLET PO SCH (13:50)
[2019-08-09 15:46] VITALS: BP 178/84
[2019-08-09] MEDS ORDERED: AMOX1TAB16 PO (17:34)
[2019-08-09 18:59] LABS: GLUCOMETER DEV NAME(LOC) 5S.2A; GLUCOSE,POINT OF CARE 209 MG/DL (70-110)
[2019-08-09 19:26] VITALS: BP 157/93
== END 2019-08-09 20:55 | disposition home or self-care (01) | DRG 919 ==
LOC: EMS 17:00 → 5S 23:20 → ICU 08-06 15:54 → 5S 08-08 10:50
PROVIDERS: ADMIT Internal Medicine; ATTEND Internal Medicine
PROC: 0JH63XZ Insertion of Tunneled Vascular Access Device into Chest Subcutaneous Tissue and Fascia, Percutaneous Approach (ICD-10-PCS; 2019-08-05)
PROC: 02H633Z Insertion of Infusion Device into Right Atrium, Percutaneous Approach (ICD-10-PCS; 2019-08-05)
PROC: B5181ZA Fluoroscopy of Superior Vena Cava using Low Osmolar Contrast, Guidance (ICD-10-PCS; 2019-08-05)
PROC: B548ZZA Ultrasonography of Superior Vena Cava, Guidance (ICD-10-PCS; 2019-08-05)
PROC: 5A1D70Z Performance of Urinary Filtration, Intermittent, Less than 6 Hours Per Day (ICD-10-PCS; 2019-08-05)
PROC: 5A1935Z Respiratory Ventilation, Less than 24 Consecutive Hours (ICD-10-PCS; principal; 2019-08-06)
PROC: 0BH17EZ Insertion of Endotracheal Airway into Trachea, Via Natural or Artificial Opening (ICD-10-PCS; 2019-08-06)
PROC: 5A1D70Z Performance of Urinary Filtration, Intermittent, Less than 6 Hours Per Day (ICD-10-PCS; 2019-08-06)
PROC: 5A1D70Z Performance of Urinary Filtration, Intermittent, Less than 6 Hours Per Day (ICD-10-PCS; 2019-08-08)
PROC: 5A1D70Z Performance of Urinary Filtration, Intermittent, Less than 6 Hours Per Day (ICD-10-PCS; 2019-08-09)
DX: T85.611A Breakdown (mechanical) of intraperitoneal dialysis catheter, initial encounter (principal); J69.0 Pneumonitis due to inhalation of food and vomit; N18.6 End stage renal disease; E43 Unspecified severe protein-calorie malnutrition; G93.41 Metabolic encephalopathy; J96.92 Respiratory failure, unspecified with hypercapnia; I12.0 Hypertensive chronic kidney disease with stage 5 chronic kidney disease or end stage renal disease; E87.2 Acidosis; G47.33 Obstructive sleep apnea (adult) (pediatric); Y84.8 Other medical procedures as the cause of abnormal reaction of the patient, or of later complication, without mention of misadventure at the time of the procedure; E11.21 Type 2 diabetes mellitus with diabetic nephropathy; F32.9 Major depressive disorder, single episode, unspecified; E66.01 Morbid (severe) obesity due to excess calories; F43.10 Post-traumatic stress disorder, unspecified; B19.20 Unspecified viral hepatitis C without hepatic coma; Y92.89 Other specified places as the place of occurrence of the external cause; Z99.2 Dependence on renal dialysis; Z68.39 Body mass index [BMI] 39.0-39.9, adult; E11.22 Type 2 diabetes mellitus with diabetic chronic kidney disease; D63.1 Anemia in chronic kidney disease; F17.210 Nicotine dependence, cigarettes, uncomplicated; Z87.01 Personal history of pneumonia (recurrent); Z83.3 Family history of diabetes mellitus; Z82.49 Family history of ischemic heart disease and other diseases of the circulatory system; Z79.4 Long term (current) use of insulin; Z91.19 Patient's noncompliance with other medical treatment and regimen
CPT/HCPCS: 36245; 36561; 36600; 70553; 76000; 76937; 80307; 82728; 82805; 83540; 83550; 83605; 83735; 83970; 84100; 86850; 86900; 86901; 87040; 87070; 87081; 87205; 87340; 93005; 93970; 94002; 94003; A9585; G0378; J0360; J0690; J0885; J1644; J2250; J2310; J2405; J2543; J2704; J3010; J3490; J7030; J7050; J7060

== ENCOUNTER 2019-11-09 05:40 | Day surgery (SDC) | payer MEDICARE, MEDICAID ==
[~2019-11-09] VITALS: Ht 167.6 cm; Wt 105.9 kg
[~2019-11-09 05:40] MED LIST changes: +AMOX1TAB16 PO; +CeFAZolin 1 GM/DEXTROSE 50 ML IV ONE; -FOLI1TAB61 PO; +SODIUM CHLORIDE 0.9% 0 ML ONE; +SODIUM CHLORIDE 0.9% 1,000 ML IV ONE
[2019-11-09 06:23] LABS: BASOPHILS % (AUTO) 0.6 % (0.0-2.0); EOSINOPHILS % (AUTO) 3.3 % (1.0-6.0); HEMATOCRIT 38.6 % (41-53); HEMOGLOBIN 12.7 g/dL (13.5-17.5); LYMPHOCYTES # (AUTO) 1.7 K/uL (1.0-4.8); LYMPHOCYTES % (AUTO) 18.9 % (22.0-44.0); MEAN CORPUSCULAR HGB CONC 32.9 G/dL (31.0-37.0); MEAN CORPUSCULAR VOLUME 88 fL (80-100); MONOCYTES # (AUTO) 0.6 K/uL (0.1-1.0); MONOCYTES % (AUTO) 7.1 % (2.0-9.0); NEUTROPHILS # (AUTO) 6.3 K/uL (1.8-7.7); NEUTROPHILS % (AUTO) 70.1 % (40.0-70.0); PLATELET COUNT (AUTO) 190 K/uL (150-450); RED BLOOD CELL COUNT(AUTO) 4.38 MIL/uL (4.50-5.90); RED CELL DISTRIBUTION WIDTH 17.5 % (11.5-14.5)
[2019-11-09 06:41] LABS: CALCIUM, TOTAL 8.7 mg/dL (8.8-10.5); CREATININE 7.31 mg/dL (0.60-1.30); POTASSIUM 4.9 mmol/L (3.5-5.1)
[2019-11-09] MEDS ORDERED: TERA2CAP10 PO (06:42)
[2019-11-09] MEDS ORDERED: LINA5TAB PO (06:42)
[2019-11-09] MEDS ORDERED: DIPH-654 PO (06:42)
[2019-11-09] MEDS ORDERED: ASPI-1111 PO (06:42)
[2019-11-09] MEDS ORDERED: SERT100T12 PO (06:42)
[2019-11-09] MEDS ORDERED: CLON0.2T PO (06:42)
[2019-11-09] MEDS ORDERED: GLIP-197 PO (06:42)
[2019-11-09] MEDS ORDERED: METO5TAB95 PO (06:42)
[2019-11-09] MEDS ORDERED: HYDR-2924 PO (06:42)
[2019-11-09] MEDS ORDERED: AMLO10TA7 PO (06:42)
[2019-11-09 06:47] LABS: ALBUMIN 2.9 g/dL (3.4-5.0); BILIRUBIN,TOTAL 0.3 mg/dL (0.1-1.0); TOTAL PROTEIN, SERUM 7.2 g/dL (6.4-8.2)
[2019-11-09 06:49] LABS: PROTHROMBIN TIME 9.8 SEC (9.4-11.6)
[2019-11-09] MEDS ORDERED: HEPARIN SODIUM,PORCINE 5,000 UNITS/ML VIAL ONE ×2 (07:11→07:12)
[2019-11-09] MEDS ORDERED: PROPOFOL 1000 MG/ISO-OSM 0 ML IV ONE (07:11)
[2019-11-09] MEDS ORDERED: LIDOCAINE/PF 1% 30 ML VIAL ONE (07:12)
[2019-11-09] MEDS ORDERED: SODIUM CHLORIDE 0.9% 0 ML ONE ×2 (07:12→07:13)
[2019-11-09] MEDS ORDERED: BACITRACIN 50,000 UNITS/VIAL ONE (07:13)
[2019-11-09] MEDS ORDERED: SODIUM CHLORIDE 0.9% 1,000 ML ONE (07:14)
[2019-11-09] MEDS ORDERED: CeFAZolin 1 GM/DEXTROSE 50 ML IV ONE (07:30)
[2019-11-09] MEDS ORDERED: PROPOFOL 1000 MG/ISO-OSM 200 ML IV ONE (08:16)
[2019-11-09] MEDS ORDERED: HYDROCODONE/ACETAMINOPHEN 5-325 MG TABLET PO ONE (11:00)
[2019-11-09] MEDS ORDERED: HYDROCODONE/ACETAMINOPHEN 5-325 MG TABLET ONE (11:12)
[2019-11-09] MEDS ORDERED: OXYMETAZOLINE HCL 0.05% 15 ML NASAL SPRAY NASAL ONE ×2 (11:56→12:00)
[2019-11-09] MEDS ORDERED: FentaNYL CITRATE-PF 100 MCG/2 ML VIAL IVP ONE (12:00)
[2019-11-09] MEDS ORDERED: MIDAZOLAM HCL 2 MG/2 ML VIAL IVP ONE (12:00)
[2019-11-09] MEDS ORDERED: LIDOCAINE/PF 2% 5 ML VIAL INJ ONE (12:00)
[2019-11-09] MEDS ORDERED: PROPOFOL 1% 20 ML VIAL IVP ONE (12:00)
[2019-11-09] MEDS ORDERED: KETAMINE HCL 50 MG/ML 10 ML VIAL IVP ONE (12:00)
[2019-12-07] MEDS ORDERED: GLIP2.5ER PO (09:13)
== END 2019-11-09 12:35 | disposition home or self-care (01) ==
LOC: SURGERY 05:40
DX: E11.22 Type 2 diabetes mellitus with diabetic chronic kidney disease (principal); I12.0 Hypertensive chronic kidney disease with stage 5 chronic kidney disease or end stage renal disease; N18.6 End stage renal disease; F32.9 Major depressive disorder, single episode, unspecified; E78.5 Hyperlipidemia, unspecified; F17.210 Nicotine dependence, cigarettes, uncomplicated; Z79.899 Other long term (current) drug therapy
CPT/HCPCS: 36415; 36821; 80053; 85025; 85610; 85730; J0690; J1644; J2250; J2704 ×2; J3010; J3490 ×4; J7030; J7050

== ENCOUNTER 2020-03-13 20:38 | Emergency (ER) | payer MEDICARE, MEDICAID ==
[~2020-03-13] VITALS: Ht 170.2 cm; Wt 104.5 kg
[~2020-03-13 20:38] MED LIST changes: +AMLO-258 PO; -AMLO10TA55 PO; -AMOX1TAB16 PO; +ASPI-1111 PO; -ASPI81TA39 PO; -B CO1CAP6 PO; +CLON0.2T PO; -CLON0.2T2 PO; -CeFAZolin 1 GM/DEXTROSE 50 ML IV ONE; -FAMO20 PO; -FURO40 PO; -GENT30CR TP; +GLIP2.5ER PO; +LINA5TAB PO; +METO5TAB95 PO; -NYST50002 PO; -PHOSLOC PO; +SERT100T12 PO; -SODIUM CHLORIDE 0.9% 0 ML ONE; -SODIUM CHLORIDE 0.9% 1,000 ML IV ONE; +TERA2CAP10 PO
[2020-03-13 23:04] VITALS: BP 141/77
== END 2020-03-13 23:09 | disposition home or self-care (01) ==
LOC: EMS 20:39
DX: T82.838A Hemorrhage due to vascular prosthetic devices, implants and grafts, initial encounter (principal); N18.6 End stage renal disease; Z99.2 Dependence on renal dialysis; F17.210 Nicotine dependence, cigarettes, uncomplicated; E11.22 Type 2 diabetes mellitus with diabetic chronic kidney disease; Y83.8 Other surgical procedures as the cause of abnormal reaction of the patient, or of later complication, without mention of misadventure at the time of the procedure; Y82.8 Other medical devices associated with adverse incidents

== ENCOUNTER 2020-03-27 11:13 | Emergency (ER) | payer MEDICARE, MEDICAID ==
[~2020-03-27] VITALS: Ht 175.3 cm; Wt 118.2 kg
[2020-03-27 11:17] VITALS: BP 186/90
[2020-03-27 12:39] LABS: COVID AG,FIA SOURCE NASOPHARYNGEAL
== END 2020-03-27 11:50 | disposition home or self-care (01) ==
LOC: EMS 11:30
DX: Z20.828 Contact with and (suspected) exposure to other viral communicable diseases (principal); E11.22 Type 2 diabetes mellitus with diabetic chronic kidney disease; N18.6 End stage renal disease; Z99.2 Dependence on renal dialysis; Z79.84 Long term (current) use of oral hypoglycemic drugs; Z79.82 Long term (current) use of aspirin; Z79.899 Other long term (current) drug therapy
CPT/HCPCS: 87426; 99283; C9803; U0003

== ENCOUNTER 2021-09-13 01:09 | Inpatient (IN) | payer MEDICARE, MEDICAID ==
[~2021-09-13] VITALS: Ht 167.6 cm; Wt 114.8 kg
[~2021-09-13 01:09] MED LIST changes: -ASPI-1111 PO; +ASPI-1444 PO; -HYDR-2924 PO; +HYDR50TA36 PO; +SERT-162 PO; -SERT100T12 PO
[2021-09-13] MEDS ORDERED: DEXTROSE 50%-WATER 25 GM/50 ML SYRINGE IVP ONE ×2 (01:15→03:30)
[2021-09-13 01:34] LABS: BASOPHILS % (AUTO) 0.3 % (0.0-2.0); EOSINOPHILS % (AUTO) 0.3 % (1.0-6.0); HEMATOCRIT 35.4 % (41-53); HEMOGLOBIN 11.2 g/dL (13.5-17.5); LYMPHOCYTES # (AUTO) 0.3 K/uL (1.0-4.8); LYMPHOCYTES % (AUTO) 4.8 % (22.0-44.0); MEAN CORPUSCULAR HEMOGLOBIN 28.1 pg (26.0-34.0); MEAN CORPUSCULAR HGB CONC 31.7 G/dL (31.0-37.0); MEAN CORPUSCULAR VOLUME 89 fL (80-100); MONOCYTES # (AUTO) 0.3 K/uL (0.1-1.0); MONOCYTES % (AUTO) 4.3 % (2.0-9.0); NEUTROPHILS # (AUTO) 6.2 K/uL (1.8-7.7); PLATELET COUNT (AUTO) 187 K/uL (150-450); RED CELL DISTRIBUTION WIDTH 19.4 % (11.5-14.5)
[2021-09-13 01:55] LABS: CALCIUM, TOTAL 8.9 mg/dL (8.8-10.5); CREATININE 7.7 mg/dL (0.60-1.30); POTASSIUM 5.2 mmol/L (3.5-5.1)
[2021-09-13 01:55] LABS: COVID AG,FIA SOURCE NASOPHARYNGEAL
[2021-09-13 02:01] LABS: ALBUMIN 3.1 g/dL (3.4-5.0); BILIRUBIN,TOTAL 0.4 mg/dL (0.1-1.0); MAGNESIUM 2.6 mg/dL (1.80-2.40); PHOSPHORUS 5.3 mg/dL (2.5-4.9); TOTAL PROTEIN, SERUM 8.2 g/dL (6.4-8.2)
[2021-09-13 02:06] LABS: GLUCOSE,POINT OF CARE 96 MG/DL (70-110)
[2021-09-13] MEDS ORDERED: AZITHROMYCIN 500 MG/NS 250 ML IV ONE (02:30)
[2021-09-13] MEDS ORDERED: CefTRIAXone 1 GM/DEXTROSE 50 ML IV ONE (02:30)
[2021-09-13] MEDS ORDERED: MetroNIDAZOLE 500 MG TABLET PO ONE (02:45)
[2021-09-13] MEDS ORDERED: MetroNIDAZOLE 250 MG TABLET PO ONE (02:45)
[2021-09-13] MEDS ORDERED: ACETAMINOPHEN 325 MG TABLET PO PRN (03:15)
[2021-09-13] MEDS ORDERED: 0.9% SODIUM CHLORIDE 10 ML SYRINGE IVP PRN (03:15)
[2021-09-13] MEDS ORDERED: ONDANSETRON HCL 4 MG/2 ML VIAL IVP PRN (03:15)
[2021-09-13 04:35] LABS: GLUCOSE,POINT OF CARE 153 MG/DL (70-110)
[2021-09-13 05:23] LABS: NEUTROPHILS % (AUTO) 90.3 % (40.0-70.0)
[2021-09-13] MEDS ORDERED: PIPERACILLIN SODIUM/TAZOBACTAM 0.75 GM in DEXTROSE 5%-WATER 50 ML IV PRN (05:30)
[2021-09-13 06:41] LABS: GLUCOMETER DEV NAME(LOC) ERT.5; GLUCOSE,POINT OF CARE 88 MG/DL (70-110)
[2021-09-13 07:50] VITALS: BP 133/84
[2021-09-13] MEDS ORDERED: CloNIDine HCL 0.2 MG TABLET PO SCH (08:00)
[2021-09-13 08:01] LABS: GLUCOMETER DEV NAME(LOC) 5S.2B; GLUCOSE,POINT OF CARE 79 MG/DL (70-110)
[2021-09-13 08:51] LABS: GLUCOMETER DEV NAME(LOC) 5S.2B; GLUCOSE,POINT OF CARE 100 MG/DL (70-110)
[2021-09-13] MEDS ORDERED: -POST HEMODIALYSIS NOTE- MISC SCH (09:00)
[2021-09-13] MEDS ORDERED: METOCLOPRAMIDE HCL 5 MG TABLET PO SCH (09:00)
[2021-09-13] MEDS: HydrALAZINE HCL 50 MG TABLET PO SCH ×2 (09:02→16:41)
[2021-09-13] MEDS: ASPIRIN 81 MG DR TABLET PO SCH (09:02)
[2021-09-13] MEDS: SERTRALINE HCL 100 MG TABLET PO SCH (09:02)
[2021-09-13] MEDS: AmLODIPine BESYLATE 10 MG TABLET PO SCH (09:02)
[2021-09-13] MEDS: HEPARIN SODIUM,PORCINE 5,000 UNITS/ML VIAL SQ SCH ×2 (09:02→21:07)
[2021-09-13 11:01] LABS: GLUCOMETER DEV NAME(LOC) 5S.2B; GLUCOSE,POINT OF CARE 94 MG/DL (70-110)
[2021-09-13 11:14] VITALS: BP 149/89
[2021-09-13 12:01] LABS: GLUCOMETER DEV NAME(LOC) 5N.1C; GLUCOSE,POINT OF CARE 103 MG/DL (70-110)
[2021-09-13 15:32] LABS: INR 1.1 (0.9-1.1); PROTHROMBIN TIME 11.6 SEC (9.4-11.6)
[2021-09-13 16:12] VITALS: BP 136/85
[2021-09-13] MEDS: PIPERACILLIN SODIUM/TAZOBACTAM 2.25 GM in DEXTROSE 5%-WATER 50 ML IV SCH (16:40)
[2021-09-13] MEDS: CloNIDine HCL 0.1 MG TABLET PO SCH (16:41)
[2021-09-13] MEDS ORDERED: SODIUM CHLORIDE 0.9% 250 ML IV ONE (16:43)
[2021-09-13 17:17] LABS: SPECIMENTYPE,BODY FLUID THORACENTESIS
[2021-09-13 18:06] LABS: GLUCOMETER DEV NAME(LOC) 5S.2B; GLUCOSE,POINT OF CARE 93 MG/DL (70-110)
[2021-09-13 18:15] LABS: ABG BASE EXCESS 1.4 mmol/L (-2.0-3.0); ABG CARBOXYHEMOGLOBIN 2.3 % (0.0-1.5); ABG HCO3 24.6 mmol/L (22.0-26.0); ABG OXYGEN CONTENT 14.4 mL/dL (15.0-23.0); ABG OXYGEN SATURATION 93.2 % (95.0-98.0); ABG OXYHEMOGLOBIN 91.1 % (94.0-100.0); ABG PH 7.246 (7.35-7.450); ABG TOTAL HEMOGLOBIN 11.2 G/dL (12.0-18.0); PO2, ARTERIAL BG 73.7 mmHg (84.0-92.0); SOURCE, BLOOD GAS ARTERIAL
[2021-09-13 18:17] LABS: ABG A-A DIFF O2 134.2 mmHg (10-20.0); ABG PCO2 68 mmHg (35-45); SITE, BLOOD GAS LFT BRACHIAL
[2021-09-13 18:18] LABS: O2 DEVICE,BLOOD GAS NC (ROOM AIR)
[2021-09-13 18:22] LABS: APPEARANCE,SPUN,BODY FLUID XANTHOCHROMIC (CLEAR); APPEARANCE,UNSPUN,BODY FLUID BLOODY (CLEAR)
[2021-09-13 18:23] LABS: TOTAL VOLUME,BODY FLUID 750 mL
[2021-09-13 18:24] LABS: COLOR,BODY FLUID RED (LT YELLOW); WBC, BODY FLUID 398 /cu. mm.
[2021-09-13 18:54] LABS: BASOPHILS,BODY FLUID 0 %; EOSINOPHILS,BF (ANAL) 0 %; LYMPHOCYTES,BODY FLUID 35 %; MONOCYTES,BODY FLUID 6 %; NEUTROPHILS,BODY FLUID 59 %
[2021-09-13 20:08] LABS: SOURCE, BLOOD GAS ARTERIAL; TEMPERATURE, FAHRENHEIT, BG 98.6 FAHREN (96.0-98.6)
[2021-09-13 20:30] LABS: ABG BASE EXCESS 0.2 mmol/L (-2.0-3.0); ABG CARBOXYHEMOGLOBIN 1.7 % (0.0-1.5); ABG HCO3 23.7 mmol/L (22.0-26.0); ABG OXYGEN SATURATION 94.5 % (95.0-98.0); ABG OXYHEMOGLOBIN 92.9 % (94.0-100.0); ABG PH 7.231 (7.35-7.450); ABG TOTAL HEMOGLOBIN 11.4 G/dL (12.0-18.0); PO2, ARTERIAL BG 81.1 mmHg (84.0-92.0)
[2021-09-13 20:32] LABS: ABG PCO2 68 mmHg (35-45); O2 DEVICE,BLOOD GAS BIPAP (ROOM AIR); SITE, BLOOD GAS RT BRACHIAL
[2021-09-13 20:33] VITALS: BP 168/64
[2021-09-13 20:46] LABS: GLUCOMETER DEV NAME(LOC) 5S.2B; GLUCOSE,POINT OF CARE 142 MG/DL (70-110)
[2021-09-13] MEDS: MELATONIN 3 MG TABLET PO PRN (21:07)
[2021-09-14] VITALS (14 sets, daily range): BP systolic 114–223; BP diastolic 44–137
[2021-09-14] MEDS ORDERED: DiphenhydrAMINE HCL 50 MG/ML VIAL IM ONE (00:45)
[2021-09-14] MEDS: NICOTINE 14 MG/24 HOUR PATCH TD SCH ×2 (01:04→08:55)
[2021-09-14] MEDS: PIPERACILLIN SODIUM/TAZOBACTAM 2.25 GM in DEXTROSE 5%-WATER 50 ML IV SCH ×3 (01:05→20:33)
[2021-09-14] MEDS: HydrALAZINE HCL 50 MG TABLET PO SCH ×3 (01:06→16:00)
[2021-09-14] MEDS: CloNIDine HCL 0.1 MG TABLET PO SCH ×3 (01:06→16:00)
[2021-09-14 06:16] LABS: GLUCOMETER DEV NAME(LOC) 5S.2B; GLUCOSE,POINT OF CARE 77 MG/DL (70-110)
[2021-09-14 06:46] LABS: GLUCOMETER DEV NAME(LOC) 5N.1C; GLUCOSE,POINT OF CARE 93 MG/DL (70-110)
[2021-09-14] MEDS: HEPARIN SODIUM,PORCINE 5,000 UNITS/ML VIAL SQ SCH ×2 (08:55→20:33)
[2021-09-14] MEDS: ASPIRIN 81 MG DR TABLET PO SCH (08:55)
[2021-09-14] MEDS: AmLODIPine BESYLATE 10 MG TABLET PO SCH (08:56)
[2021-09-14] MEDS: SERTRALINE HCL 100 MG TABLET PO SCH (08:56)
[2021-09-14 09:11] LABS: BASOPHILS % (AUTO) 0.2 % (0.0-2.0); EOSINOPHILS % (AUTO) 2.6 % (1.0-6.0); HEMATOCRIT 33.9 % (41-53); HEMOGLOBIN 10.4 g/dL (13.5-17.5); LYMPHOCYTES # (AUTO) 0.7 K/uL (1.0-4.8); MEAN CORPUSCULAR HEMOGLOBIN 27.8 pg (26.0-34.0); MEAN CORPUSCULAR HGB CONC 30.7 G/dL (31.0-37.0); MEAN CORPUSCULAR VOLUME 90 fL (80-100); MONOCYTES # (AUTO) 0.5 K/uL (0.1-1.0); NEUTROPHILS # (AUTO) 4.7 K/uL (1.8-7.7); NEUTROPHILS % (AUTO) 77.2 % (40.0-70.0); PLATELET COUNT (AUTO) 155 K/uL (150-450); RED BLOOD CELL COUNT(AUTO) 3.76 MIL/uL (4.50-5.90); RED CELL DISTRIBUTION WIDTH 19.3 % (11.5-14.5)
[2021-09-14 09:21] LABS: ALBUMIN 2.8 g/dL (3.4-5.0); BILIRUBIN,TOTAL 0.4 mg/dL (0.1-1.0); CALCIUM, TOTAL 8.3 mg/dL (8.8-10.5); CREATININE 9.73 mg/dL (0.60-1.30); TOTAL PROTEIN, SERUM 7.5 g/dL (6.4-8.2)
[2021-09-14 10:07] LABS: POTASSIUM 6.6 mmol/L (3.5-5.1)
[2021-09-14 10:08] LABS: PHOSPHORUS 9.4 mg/dL (2.5-4.9)
[2021-09-14] MEDS ORDERED: DEXTROSE 50%-WATER 25 GM/50 ML SYRINGE IVP ONE (11:00)
[2021-09-14] MEDS ORDERED: CALCIUM GLUCONATE 1,000 MG in DEXTROSE 5%-WATER 50 ML IV ONE (11:00)
[2021-09-14] MEDS ORDERED: INSULIN REGULAR, HUMAN 100 UNITS/ML IVP ONE (11:00)
[2021-09-14] MEDS ORDERED: CALCIUM GLUCONATE 100 MG/ML 10 ML IVP ONE (11:15)
[2021-09-14 11:32] LABS: ALBUMIN 2.9 g/dL (3.4-5.0); BILIRUBIN,TOTAL 0.4 mg/dL (0.1-1.0); CALCIUM, TOTAL 8.2 mg/dL (8.8-10.5); CREATININE 10.07 mg/dL (0.60-1.30); TOTAL PROTEIN, SERUM 7.6 g/dL (6.4-8.2)
[2021-09-14] MEDS ORDERED: DiphenhydrAMINE HCL 25 MG CAPSULE PO ONE (13:45)
[2021-09-14] MEDS ORDERED: DiphenhydrAMINE HCL 50 MG/ML VIAL IVP ONE ×2 (14:00→16:15)
[2021-09-14 18:16] LABS: GLUCOMETER DEV NAME(LOC) 5S.2B; GLUCOSE,POINT OF CARE 145 MG/DL (70-110)
[2021-09-14] MEDS: MELATONIN 3 MG TABLET PO PRN (20:33)
[2021-09-14 20:56] LABS: GLUCOMETER DEV NAME(LOC) 5S.2B; GLUCOSE,POINT OF CARE 164 MG/DL (70-110)
[2021-09-15] MEDS: CloNIDine HCL 0.1 MG TABLET PO SCH ×3 (00:41→17:04)
[2021-09-15] MEDS: PIPERACILLIN SODIUM/TAZOBACTAM 2.25 GM in DEXTROSE 5%-WATER 50 ML IV SCH ×3 (00:41→17:03)
[2021-09-15] MEDS: HydrALAZINE HCL 50 MG TABLET PO SCH ×3 (00:41→17:04)
[2021-09-15 00:54] VITALS: BP 150/73
[2021-09-15 04:05] VITALS: BP 160/82
[2021-09-15 06:01] LABS: GLUCOMETER DEV NAME(LOC) 5S.2B; GLUCOSE,POINT OF CARE 152 MG/DL (70-110)
[2021-09-15 07:22] VITALS: BP 160/56
[2021-09-15 08:31] LABS: BASOPHILS % (AUTO) 0.3 % (0.0-2.0); EOSINOPHILS % (AUTO) 3.1 % (1.0-6.0); HEMATOCRIT 33.1 % (41-53); HEMOGLOBIN 10.2 g/dL (13.5-17.5); LYMPHOCYTES # (AUTO) 0.8 K/uL (1.0-4.8); LYMPHOCYTES % (AUTO) 11.6 % (22.0-44.0); MEAN CORPUSCULAR HGB CONC 30.9 G/dL (31.0-37.0); MEAN CORPUSCULAR VOLUME 91 fL (80-100); MONOCYTES # (AUTO) 0.5 K/uL (0.1-1.0); MONOCYTES % (AUTO) 7.9 % (2.0-9.0); NEUTROPHILS # (AUTO) 5.2 K/uL (1.8-7.7); NEUTROPHILS % (AUTO) 77.1 % (40.0-70.0); PLATELET COUNT (AUTO) 169 K/uL (150-450); RED BLOOD CELL COUNT(AUTO) 3.65 MIL/uL (4.50-5.90); RED CELL DISTRIBUTION WIDTH 19.3 % (11.5-14.5)
[2021-09-15 08:41] LABS: ALBUMIN 2.8 g/dL (3.4-5.0); BILIRUBIN,TOTAL 0.4 mg/dL (0.1-1.0); CALCIUM, TOTAL 8.1 mg/dL (8.8-10.5); CREATININE 8.78 mg/dL (0.60-1.30); POTASSIUM 5.3 mmol/L (3.5-5.1); TOTAL PROTEIN, SERUM 7.7 g/dL (6.4-8.2)
[2021-09-15] MEDS: NICOTINE 14 MG/24 HOUR PATCH TD SCH (08:50)
[2021-09-15] MEDS: ASPIRIN 81 MG DR TABLET PO SCH (08:51)
[2021-09-15] MEDS: HEPARIN SODIUM,PORCINE 5,000 UNITS/ML VIAL SQ SCH ×2 (08:51→20:17)
[2021-09-15] MEDS: AmLODIPine BESYLATE 10 MG TABLET PO SCH (08:51)
[2021-09-15] MEDS: SERTRALINE HCL 100 MG TABLET PO SCH (08:52)
[2021-09-15] MEDS ORDERED: PHENYLEPHRINE/SHK LV/MIN OIL/PET 57 GM OINTMENT TP PRN (09:15)
[2021-09-15] MEDS ORDERED: SODIUM ZIRCONIUM CYCLOSILICATE 5 GM POWDER PACKET PO ONE (10:45)
[2021-09-15 11:33] VITALS: BP 153/81
[2021-09-15] MEDS ORDERED: DiphenhydrAMINE HCL 50 MG/ML VIAL IM ONE (11:49)
[2021-09-15] MEDS ORDERED: SODIUM CHLORIDE 0.9% 1,000 ML ONE (13:41)
[2021-09-15 15:53] VITALS: BP 164/78
[2021-09-15] MEDS ORDERED: SEVELAMER CARBONATE 800 MG TABLET PO SCH (18:00)
[2021-09-15 18:12] LABS: GLUCOMETER DEV NAME(LOC) 5S.2B; GLUCOSE,POINT OF CARE 118 MG/DL (70-110)
[2021-09-15 19:43] VITALS: BP 183/77
[2021-09-15] MEDS ORDERED: TraZODone HCL 50 MG TABLET PO SCH (21:00)
[2021-09-16 06:31] LABS: GLUCOMETER DEV NAME(LOC) 5N.1C; GLUCOSE,POINT OF CARE 202 MG/DL (70-110)
[2021-09-16 06:31] LABS: GLUCOMETER DEV NAME(LOC) 5N.1C; GLUCOSE,POINT OF CARE 136 MG/DL (70-110)
== END 2021-09-15 22:00 | disposition left against medical advice (07) | DRG 637 ==
LOC: EMS 01:13 → 5S 04:38
PROVIDERS: ADMIT Internal Medicine; ATTEND Internal Medicine
PROC: 5A09357 Assistance with Respiratory Ventilation, Less than 24 Consecutive Hours, Continuous Positive Airway Pressure (ICD-10-PCS; principal; 2021-09-13)
PROC: 0W9930Z Drainage of Right Pleural Cavity with Drainage Device, Percutaneous Approach (ICD-10-PCS; 2021-09-13)
DX: E11.649 Type 2 diabetes mellitus with hypoglycemia without coma (principal); J69.0 Pneumonitis due to inhalation of food and vomit; G93.41 Metabolic encephalopathy; I13.11 Hypertensive heart and chronic kidney disease without heart failure, with stage 5 chronic kidney disease, or end stage renal disease; J90 Pleural effusion, not elsewhere classified; N18.6 End stage renal disease; N25.81 Secondary hyperparathyroidism of renal origin; Z68.39 Body mass index [BMI] 39.0-39.9, adult; E11.22 Type 2 diabetes mellitus with diabetic chronic kidney disease; E78.5 Hyperlipidemia, unspecified; E87.5 Hyperkalemia; E11.40 Type 2 diabetes mellitus with diabetic neuropathy, unspecified; E11.319 Type 2 diabetes mellitus with unspecified diabetic retinopathy without macular edema; D63.1 Anemia in chronic kidney disease; F17.210 Nicotine dependence, cigarettes, uncomplicated; Z53.29 Procedure and treatment not carried out because of patient's decision for other reasons; E66.01 Morbid (severe) obesity due to excess calories; Z99.2 Dependence on renal dialysis; Z82.49 Family history of ischemic heart disease and other diseases of the circulatory system; Z79.82 Long term (current) use of aspirin; Z79.4 Long term (current) use of insulin; Z20.822 Contact with and (suspected) exposure to COVID-19
CPT/HCPCS: 32555; 70450; 71045; 71250; 76942; 80053; 82550; 82805; 82945; 82948; 82962; 83036; 83615; 83735; 83880; 84100; 84132; 84145; 84157; 84484; 85025; 85610; 85730; 87075; 87081; 87205; 87340; 89051; 93005; 93306; 94640; 94660; 99291; J0456; J0610; J0696; J1200; J1644; J1815; J2543; J7030; J7050; J7060; Q9967; 36415-L1; 36415-TC; 87070

== ENCOUNTER 2021-10-28 21:44 | Inpatient (IN) | payer MEDICARE, MEDICAID ==
[~2021-10-28] VITALS: Ht 170.2 cm; Wt 103.4 kg
[~2021-10-28 21:44] MED LIST changes: -GLIP2.5ER PO; +GLIP2.5T23 PO
[2021-10-28 23:04] LABS: BASOPHILS % (AUTO) 0.6 % (0.0-2.0); EOSINOPHILS % (AUTO) 2.4 % (1.0-6.0); HEMATOCRIT 34.7 % (41-53); HEMOGLOBIN 10.4 g/dL (13.5-17.5); LYMPHOCYTES # (AUTO) 0.6 K/uL (1.0-4.8); MEAN CORPUSCULAR HEMOGLOBIN 27.8 pg (26.0-34.0); MEAN CORPUSCULAR HGB CONC 30.1 G/dL (31.0-37.0); MEAN CORPUSCULAR VOLUME 92 fL (80-100); MONOCYTES # (AUTO) 0.4 K/uL (0.1-1.0); MONOCYTES % (AUTO) 7.1 % (2.0-9.0); NEUTROPHILS # (AUTO) 4.3 K/uL (1.8-7.7); NEUTROPHILS % (AUTO) 78.9 % (40.0-70.0); PLATELET COUNT (AUTO) 97 K/uL (150-450); RED BLOOD CELL COUNT(AUTO) 3.76 MIL/uL (4.50-5.90); RED CELL DISTRIBUTION WIDTH 22.2 % (11.5-14.5)
[2021-10-28 23:09] LABS: ALBUMIN 3.1 g/dL (3.4-5.0); BILIRUBIN,TOTAL 0.5 mg/dL (0.1-1.0); CREATININE 19.16 mg/dL (0.60-1.30); POTASSIUM 5.7 mmol/L (3.5-5.1)
[2021-10-28 23:21] LABS: INR 1.1 (0.9-1.1); PROTHROMBIN TIME 11.8 SEC (9.4-11.6)
[2021-10-29] MEDS ORDERED: FentaNYL CITRATE PF 100 MCG/2 ML VIAL IVP ONE
[2021-10-29] MEDS ORDERED: DEXTROSE 50%-WATER 25 GM/50 ML SYRINGE IVP PRN (00:30)
[2021-10-29] MEDS ORDERED: SODIUM POLYSTYRENE SULFONATE 15 GM/60 ML SUSPENSION BOTTLE PO ONE (00:30)
[2021-10-29] MEDS ORDERED: INSULIN REGULAR, HUMAN 100 UNITS/ML SQ ONE (00:30)
[2021-10-29] MEDS ORDERED: ONDANSETRON HCL 4 MG/2 ML VIAL IVP PRN (00:30)
[2021-10-29] MEDS ORDERED: INSULIN GLARGINE,HUM.REC.ANLOG 100 UNITS/ML SQ SCH (00:30)
[2021-10-29] MEDS ORDERED: DEXTROSE 50%-WATER 25 GM/50 ML SYRINGE IVP ONE (00:30)
[2021-10-29] MEDS ORDERED: INSULIN LISPRO 100 UNITS/ML SQ PRN (00:30)
[2021-10-29] MEDS ORDERED: FUROSEMIDE 40 MG/4 ML VIAL IVP ONE (00:30)
[2021-10-29] MEDS: HydrALAZINE HCL 25 MG TABLET PO SCH ×3 (00:48→16:00)
[2021-10-29] MEDS ORDERED: LIDOCAINE 3% CREAM 85 GM TUBE TP ONE (02:15)
[2021-10-29] MEDS: CloNIDine HCL 0.2 MG TABLET PO SCH ×2 (02:45→08:34)
[2021-10-29 04:11] LABS: GLUCOSE,POINT OF CARE 135 MG/DL (70-110)
[2021-10-29 07:21] LABS: CREATININE 19.14 mg/dL (0.60-1.30); POTASSIUM 5.6 mmol/L (3.5-5.1)
[2021-10-29] MEDS: SERTRALINE HCL 100 MG TABLET PO SCH (08:31)
[2021-10-29] MEDS: TERAZOSIN HCL 1 MG CAPSULE PO SCH ×2 (08:32→21:30)
[2021-10-29] MEDS: ACETAMINOPHEN 325 MG TABLET PO PRN (08:32)
[2021-10-29] MEDS: HEPARIN SODIUM,PORCINE 5,000 UNITS/ML VIAL SQ SCH ×3 (08:33→23:49)
[2021-10-29] MEDS: ASPIRIN 81 MG DR TABLET PO SCH (08:34)
[2021-10-29] MEDS: AmLODIPine BESYLATE 10 MG TABLET PO SCH (08:35)
[2021-10-29 08:42] VITALS: BP 132/62
[2021-10-29] MEDS ORDERED: METOCLOPRAMIDE HCL 5 MG TABLET PO SCH (09:00)
[2021-10-29] MEDS ORDERED: SODIUM CHLORIDE 0.9% 2,000 ML ONE (10:13)
[2021-10-29 10:30] VITALS: BP 116/66
[2021-10-29 12:01] LABS: GLUCOMETER DEV NAME(LOC) 5N.1C; GLUCOSE,POINT OF CARE 119 MG/DL (70-110)
[2021-10-29 13:39] LABS: ABG BASE EXCESS -5.8 mmol/L (-2.0-3.0); ABG CARBOXYHEMOGLOBIN 2.3 % (0.0-1.5); ABG HCO3 19.2 mmol/L (22.0-26.0); ABG METHEMOGLOBIN 0.3 % (0.0-1.5); ABG OXYGEN CONTENT 13.2 mL/dL (15.0-23.0); ABG OXYGEN SATURATION 92.1 % (95.0-98.0); ABG OXYHEMOGLOBIN 89.7 % (94.0-100.0); ABG PCO2 65 mmHg (35-45); ABG TOTAL HEMOGLOBIN 10.4 G/dL (12.0-18.0); PO2, ARTERIAL BG 71.9 mmHg (84.0-92.0); SOURCE, BLOOD GAS ARTERIAL; TEMPERATURE, FAHRENHEIT, BG 97.2 FAHREN (96.0-98.6)
[2021-10-29 13:40] LABS: ABG PH 7.161 (7.35-7.450); O2 DEVICE,BLOOD GAS BIPAP (ROOM AIR); SITE, BLOOD GAS RT RADIAL
[2021-10-29 13:41] LABS: INSPIRATORY TIME, BG 1 SEC; SPONTANEOUS VT, BG 555 ml
[2021-10-29 15:13] VITALS: BP 108/61
[2021-10-29 15:41] LABS: ABG BASE EXCESS 0.8 mmol/L (-2.0-3.0); ABG CARBOXYHEMOGLOBIN 2.3 % (0.0-1.5); ABG METHEMOGLOBIN 0.3 % (0.0-1.5); ABG OXYGEN CONTENT 13.6 mL/dL (15.0-23.0); ABG OXYGEN SATURATION 91.4 % (95.0-98.0); ABG PH 7.212 (7.35-7.450); ABG TOTAL HEMOGLOBIN 10.8 G/dL (12.0-18.0); PO2, ARTERIAL BG 66.6 mmHg (84.0-92.0); SOURCE, BLOOD GAS ARTERIAL; TEMPERATURE, FAHRENHEIT, BG 97.3 FAHREN (96.0-98.6)
[2021-10-29 15:44] LABS: ABG PCO2 73 mmHg (35-45); O2 DEVICE,BLOOD GAS BIPAP (ROOM AIR); SITE, BLOOD GAS RT RADIAL
[2021-10-29 15:45] LABS: INSPIRATORY TIME, BG 1 SEC; SPONTANEOUS VT, BG 489 ml
[2021-10-29 18:57] LABS: ABG BASE EXCESS -4.9 mmol/L (-2.0-3.0); ABG CARBOXYHEMOGLOBIN 2.3 % (0.0-1.5); ABG METHEMOGLOBIN 0.3 % (0.0-1.5); ABG OXYGEN CONTENT 14.5 mL/dL (15.0-23.0); ABG OXYGEN SATURATION 93.1 % (95.0-98.0); ABG OXYHEMOGLOBIN 90.7 % (94.0-100.0); ABG PCO2 58 mmHg (35-45); ABG PH 7.216 (7.35-7.450); ABG TOTAL HEMOGLOBIN 11.3 G/dL (12.0-18.0); O2 DEVICE,BLOOD GAS BIPAP (ROOM AIR); PO2, ARTERIAL BG 73.4 mmHg (84.0-92.0); SITE, BLOOD GAS RT RADIAL; SOURCE, BLOOD GAS ARTERIAL; SPONTANEOUS VT, BG 503 ml; TEMPERATURE, FAHRENHEIT, BG 98.7 FAHREN (96.0-98.6)
[2021-10-29 20:00] VITALS: BP 115/33
[2021-10-29] MEDS ORDERED: -PHARMACY VACCINE NOTE- MISC ONE (20:45)
[2021-10-29] MEDS: ETHYL ALCOHOL 62% ANTISEPTIC NASAL SANITIZER 0.6 ML AMPUL NASAL SCH (21:30)
[2021-10-29] MEDS: HydrALAZINE HCL 50 MG TABLET PO SCH (23:49)
[2021-10-30] VITALS (17 sets, daily range): BP systolic 116–175; BP diastolic 52–86
[2021-10-30 06:11] LABS: GLUCOSE,POINT OF CARE 80 MG/DL (70-110)
[2021-10-30 07:52] LABS: BASOPHILS % (AUTO) 0.9 % (0.0-2.0); EOSINOPHILS % (AUTO) 1.8 % (1.0-6.0); HEMATOCRIT 31.7 % (41-53); HEMOGLOBIN 9.9 g/dL (13.5-17.5); LYMPHOCYTES # (AUTO) 0.4 K/uL (1.0-4.8); LYMPHOCYTES % (AUTO) 9.5 % (22.0-44.0); MEAN CORPUSCULAR HEMOGLOBIN 28.1 pg (26.0-34.0); MEAN CORPUSCULAR HGB CONC 31.3 G/dL (31.0-37.0); MEAN CORPUSCULAR VOLUME 90 fL (80-100); MONOCYTES # (AUTO) 0.2 K/uL (0.1-1.0); MONOCYTES % (AUTO) 6.2 % (2.0-9.0); NEUTROPHILS # (AUTO) 3.2 K/uL (1.8-7.7); NEUTROPHILS % (AUTO) 81.6 % (40.0-70.0); PLATELET COUNT (AUTO) 82 K/uL (150-450); RED BLOOD CELL COUNT(AUTO) 3.53 MIL/uL (4.50-5.90); RED CELL DISTRIBUTION WIDTH 21.4 % (11.5-14.5)
[2021-10-30] MEDS: HEPARIN SODIUM,PORCINE 5,000 UNITS/ML VIAL SQ SCH ×3 (08:00→23:37)
[2021-10-30 08:07] LABS: CALCIUM, TOTAL 7.7 mg/dL (8.8-10.5); CREATININE 11.05 mg/dL (0.60-1.30); POTASSIUM 4.4 mmol/L (3.5-5.1)
[2021-10-30] MEDS: ASPIRIN 81 MG DR TABLET PO SCH (09:00)
[2021-10-30 09:03] LABS: ABG BASE EXCESS 0.1 mmol/L (-2.0-3.0); ABG CARBOXYHEMOGLOBIN 2.2 % (0.0-1.5); ABG METHEMOGLOBIN 0.3 % (0.0-1.5); ABG OXYGEN CONTENT 14.8 mL/dL (15.0-23.0); ABG OXYGEN SATURATION 96.6 % (95.0-98.0); ABG OXYHEMOGLOBIN 94.2 % (94.0-100.0); ABG PCO2 54 mmHg (35-45); ABG PH 7.309 (7.35-7.450); ABG TOTAL HEMOGLOBIN 11.1 G/dL (12.0-18.0); PO2, ARTERIAL BG 87.1 mmHg (84.0-92.0); SOURCE, BLOOD GAS ARTERIAL; TEMPERATURE, FAHRENHEIT, BG 97.8 FAHREN (96.0-98.6)
[2021-10-30 09:05] LABS: O2 DEVICE,BLOOD GAS CANNULA (ROOM AIR); SITE, BLOOD GAS OTHER
[2021-10-30] MEDS: AmLODIPine BESYLATE 10 MG TABLET PO SCH (09:28)
[2021-10-30] MEDS: SERTRALINE HCL 100 MG TABLET PO SCH (09:29)
[2021-10-30] MEDS: ETHYL ALCOHOL 62% ANTISEPTIC NASAL SANITIZER 0.6 ML AMPUL NASAL SCH ×2 (09:30→21:21)
[2021-10-30] MEDS: TERAZOSIN HCL 1 MG CAPSULE PO SCH ×2 (09:30→21:21)
[2021-10-30] MEDS: ACETAMINOPHEN 325 MG TABLET PO PRN ×2 (09:30→21:22)
[2021-10-30] MEDS: HydrALAZINE HCL 50 MG TABLET PO SCH ×3 (09:31→23:37)
[2021-10-30 10:41] LABS: GLUCOSE,POINT OF CARE 95 MG/DL (70-110)
[2021-10-30] MEDS ORDERED: DiphenhydrAMINE HCL 50 MG/ML VIAL ONE (12:52)
[2021-10-30] MEDS ORDERED: MORPHINE SULFATE 2 MG/ML SYRINGE IVP PRN (14:15)
[2021-10-30] MEDS ORDERED: PERMETHRIN 5% 60 GM CREAM TP ONE (14:15)
[2021-10-30 19:26] LABS: GLUCOMETER DEV NAME(LOC) 5S.1B; GLUCOSE,POINT OF CARE 126 MG/DL (70-110)
[2021-10-30 23:05] LABS: GLUCOMETER DEV NAME(LOC) 5S.1B; GLUCOSE,POINT OF CARE 127 MG/DL (70-110)
[2021-10-30] MEDS ORDERED: DiphenhydrAMINE HCL 25 MG/10 ML SOLUTION UDCUP PO SCH (23:30)
[2021-10-31] VITALS (8 sets, daily range): BP systolic 149–181; BP diastolic 60–88
[2021-10-31] MEDS: PHENYLEPHRINE/SHK LV/MIN OIL/PET 57 GM OINTMENT TP PRN ×2 (02:35→05:58)
[2021-10-31 04:35] LABS: GLUCOMETER DEV NAME(LOC) AHU.; GLUCOSE,POINT OF CARE 78 MG/DL (70-110)
[2021-10-31 04:35] LABS: GLUCOMETER DEV NAME(LOC) AHU.; GLUCOSE,POINT OF CARE 68 MG/DL (70-110)
[2021-10-31 06:48] LABS: BASOPHILS % (AUTO) 0.4 % (0.0-2.0); CALCIUM, TOTAL 7.8 mg/dL (8.8-10.5); CREATININE 9.16 mg/dL (0.60-1.30); EOSINOPHILS % (AUTO) 2.9 % (1.0-6.0); HEMATOCRIT 32.4 % (41-53); HEMOGLOBIN 10.2 g/dL (13.5-17.5); LYMPHOCYTES # (AUTO) 0.7 K/uL (1.0-4.8); LYMPHOCYTES % (AUTO) 16.2 % (22.0-44.0); MEAN CORPUSCULAR HEMOGLOBIN 27.9 pg (26.0-34.0); MEAN CORPUSCULAR HGB CONC 31.3 G/dL (31.0-37.0); MEAN CORPUSCULAR VOLUME 89 fL (80-100); MONOCYTES # (AUTO) 0.5 K/uL (0.1-1.0); MONOCYTES % (AUTO) 11.9 % (2.0-9.0); NEUTROPHILS # (AUTO) 2.9 K/uL (1.8-7.7); NEUTROPHILS % (AUTO) 68.6 % (40.0-70.0); POTASSIUM 3.8 mmol/L (3.5-5.1); RED BLOOD CELL COUNT(AUTO) 3.65 MIL/uL (4.50-5.90); RED CELL DISTRIBUTION WIDTH 21.8 % (11.5-14.5)
[2021-10-31 06:52] LABS: PLATELET COUNT (AUTO) 93 K/uL (150-450)
[2021-10-31] MEDS: HEPARIN SODIUM,PORCINE 5,000 UNITS/ML VIAL SQ SCH ×3 (08:00→23:46)
[2021-10-31] MEDS: SERTRALINE HCL 100 MG TABLET PO SCH (08:35)
[2021-10-31] MEDS: TERAZOSIN HCL 1 MG CAPSULE PO SCH ×2 (08:35→20:34)
[2021-10-31] MEDS: ASPIRIN 81 MG DR TABLET PO SCH (08:35)
[2021-10-31] MEDS: AmLODIPine BESYLATE 10 MG TABLET PO SCH (08:35)
[2021-10-31] MEDS: HydrALAZINE HCL 50 MG TABLET PO SCH ×3 (08:36→23:46)
[2021-10-31] MEDS: ETHYL ALCOHOL 62% ANTISEPTIC NASAL SANITIZER 0.6 ML AMPUL NASAL SCH ×2 (08:36→20:34)
[2021-10-31] MEDS ORDERED: LIDOCAINE 1%/EPI 1:200,000/PF 10 ML VIAL ONE (12:55)
[2021-10-31] MEDS ORDERED: LIDOCAINE/PF 1% 5 ML VIAL ONE (12:55)
[2021-10-31 14:17] LABS: SPECIMENTYPE,BODY FLUID THORACENTESIS
[2021-10-31] MEDS: ACETAMINOPHEN 325 MG TABLET PO PRN (15:11)
[2021-10-31 15:26] LABS: GLUCOMETER DEV NAME(LOC) 5S.2B; GLUCOSE,POINT OF CARE 91 MG/DL (70-110)
[2021-10-31 15:26] LABS: GLUCOMETER DEV NAME(LOC) 5S.2B; GLUCOSE,POINT OF CARE 117 MG/DL (70-110)
[2021-10-31 17:10] LABS: APPEARANCE,SPUN,BODY FLUID CLEAR (CLEAR); APPEARANCE,UNSPUN,BODY FLUID BLOODY (CLEAR); COLOR,BODY FLUID YELLOW (LT YELLOW); TOTAL VOLUME,BODY FLUID 700 mL; WBC, BODY FLUID 56 /cu. mm.
[2021-10-31 17:11] LABS: LYMPHOCYTES,BODY FLUID 45 %; NEUTROPHILS,BODY FLUID 55 %; PH, BODY FLUID 8
[2021-10-31 17:12] LABS: BASOPHILS,BODY FLUID 0 %; EOSINOPHILS,BF (ANAL) 0 %; MONOCYTES,BODY FLUID 0 %
[2021-10-31 23:11] LABS: GLUCOMETER DEV NAME(LOC) 5S.2B; GLUCOSE,POINT OF CARE 131 MG/DL (70-110)
[2021-10-31 23:11] LABS: GLUCOMETER DEV NAME(LOC) 5S.2B; GLUCOSE,POINT OF CARE 117 MG/DL (70-110)
[2021-11-01] VITALS (10 sets, daily range): BP systolic 142–209; BP diastolic 72–151
[2021-11-01] MEDS ORDERED: DiphenhydrAMINE HCL 25 MG CAPSULE PO ONE
[2021-11-01 07:16] LABS: BASOPHILS % (AUTO) 0.6 % (0.0-2.0); EOSINOPHILS % (AUTO) 3.1 % (1.0-6.0); HEMATOCRIT 32.6 % (41-53); HEMOGLOBIN 10.3 g/dL (13.5-17.5); LYMPHOCYTES # (AUTO) 0.6 K/uL (1.0-4.8); LYMPHOCYTES % (AUTO) 14.6 % (22.0-44.0); MEAN CORPUSCULAR HEMOGLOBIN 28.2 pg (26.0-34.0); MEAN CORPUSCULAR HGB CONC 31.7 G/dL (31.0-37.0); MEAN CORPUSCULAR VOLUME 89 fL (80-100); MONOCYTES # (AUTO) 0.4 K/uL (0.1-1.0); MONOCYTES % (AUTO) 10.1 % (2.0-9.0); NEUTROPHILS % (AUTO) 71.6 % (40.0-70.0); PLATELET COUNT (AUTO) 90 K/uL (150-450); RED BLOOD CELL COUNT(AUTO) 3.67 MIL/uL (4.50-5.90); RED CELL DISTRIBUTION WIDTH 20.9 % (11.5-14.5)
[2021-11-01] MEDS: HEPARIN SODIUM,PORCINE 5,000 UNITS/ML VIAL SQ SCH ×3 (08:00→16:00)
[2021-11-01] MEDS: ETHYL ALCOHOL 62% ANTISEPTIC NASAL SANITIZER 0.6 ML AMPUL NASAL SCH (08:10)
[2021-11-01] MEDS: TERAZOSIN HCL 1 MG CAPSULE PO SCH (08:15)
[2021-11-01] MEDS: HydrALAZINE HCL 50 MG TABLET PO SCH ×2 (08:15→16:02)
[2021-11-01] MEDS: SERTRALINE HCL 100 MG TABLET PO SCH (08:15)
[2021-11-01] MEDS: ASPIRIN 81 MG DR TABLET PO SCH (08:15)
[2021-11-01] MEDS: AmLODIPine BESYLATE 10 MG TABLET PO SCH (08:15)
[2021-11-01 08:20] LABS: CALCIUM, TOTAL 8.3 mg/dL (8.8-10.5); CREATININE 10.77 mg/dL (0.60-1.30); MAGNESIUM 2.6 mg/dL (1.80-2.40); PHOSPHORUS 8.7 mg/dL (2.5-4.9); POTASSIUM 4.1 mmol/L (3.5-5.1)
[2021-11-01] MEDS ORDERED: LORazepam 1 MG TABLET PO ONE (09:45)
[2021-11-01] MEDS ORDERED: HYDR2TAB37 PO (10:23)
[2021-11-01] MEDS ORDERED: HYDR-4174 PO (14:24)
[2021-11-01] MEDS ORDERED: AMLO-258 PO (14:24)
[2021-11-01] MEDS ORDERED: ASPI-1444 PO (14:24)
[2021-11-01] MEDS ORDERED: DiphenhydrAMINE HCL 50 MG/ML VIAL IVP ONE (16:19)
[2021-11-01 18:46] LABS: GLUCOMETER DEV NAME(LOC) 5S.1B; GLUCOSE,POINT OF CARE 82 MG/DL (70-110)
[2021-11-01 18:47] LABS: GLUCOMETER DEV NAME(LOC) 5S.1B; GLUCOSE,POINT OF CARE 97 MG/DL (70-110)
== END 2021-11-01 16:20 | disposition home health service (06) | DRG 291 ==
LOC: EMS 22:18 → 5N 10-29 07:01 → ICU 10-29 18:58 → 5S 10-30 16:55
PROVIDERS: ADMIT Internal Medicine; ATTEND Internal Medicine
PROC: 5A09357 Assistance with Respiratory Ventilation, Less than 24 Consecutive Hours, Continuous Positive Airway Pressure (ICD-10-PCS; 2021-10-29)
PROC: 5A09357 Assistance with Respiratory Ventilation, Less than 24 Consecutive Hours, Continuous Positive Airway Pressure (ICD-10-PCS; 2021-10-30)
PROC: 0W9930Z Drainage of Right Pleural Cavity with Drainage Device, Percutaneous Approach (ICD-10-PCS; 2021-10-31)
PROC: 5A1D70Z Performance of Urinary Filtration, Intermittent, Less than 6 Hours Per Day (ICD-10-PCS; principal; 2021-11-01)
DX: I13.2 Hypertensive heart and chronic kidney disease with heart failure and with stage 5 chronic kidney disease, or end stage renal disease (principal); I50.33 Acute on chronic diastolic (congestive) heart failure; N18.6 End stage renal disease; J96.01 Acute respiratory failure with hypoxia; J96.02 Acute respiratory failure with hypercapnia; G93.41 Metabolic encephalopathy; G93.49 Other encephalopathy; N25.81 Secondary hyperparathyroidism of renal origin; E44.0 Moderate protein-calorie malnutrition; J91.8 Pleural effusion in other conditions classified elsewhere; E11.22 Type 2 diabetes mellitus with diabetic chronic kidney disease; D63.1 Anemia in chronic kidney disease; E66.01 Morbid (severe) obesity due to excess calories; E83.39 Other disorders of phosphorus metabolism; E87.5 Hyperkalemia; F17.210 Nicotine dependence, cigarettes, uncomplicated; E11.40 Type 2 diabetes mellitus with diabetic neuropathy, unspecified; I25.10 Atherosclerotic heart disease of native coronary artery without angina pectoris; Z82.49 Family history of ischemic heart disease and other diseases of the circulatory system; Z79.82 Long term (current) use of aspirin; Z83.3 Family history of diabetes mellitus; Z91.15 Patient's noncompliance with renal dialysis; Z91.19 Patient's noncompliance with other medical treatment and regimen; Z99.2 Dependence on renal dialysis; Z79.899 Other long term (current) drug therapy; Z63.4 Disappearance and death of family member; Z68.35 Body mass index [BMI] 35.0-35.9, adult
CPT/HCPCS: 32555; 36600; 71045; 76942; 80048; 80053; 82465; 82805; 82945; 82962; 83615; 83735; 83880; 83986; 84100; 84157; 84484; 85025; 85610; 87015; 87075; 87081; 87101; 87205; 87206; 87340; 89051; 90935; 93005; 93925; 94660; 97116; 97163; 97530; 99285; G0378; J1200; J1644; J1815; J1940; J2001; J2270; J3010; J3490; J7030; 36415-L1; 36415-TC; 87070

== ENCOUNTER 2021-11-24 20:05 | Emergency (ER) | payer MEDICARE, MEDICAID ==
[~2021-11-24] VITALS: Ht 170.2 cm; Wt 113.6 kg
[~2021-11-24 20:05] MED LIST changes: -CLON0.2T PO; +GLIP2.5T2 PO; -GLIP2.5T23 PO; +HYDR-4174 PO; -HYDR50TA36 PO
[2021-11-24 20:20] VITALS: BP 149/67
[2021-11-24] MEDS ORDERED: LIDOCAINE 5% TRANSDERMAL PATCH TD ONE (22:45)
[2021-11-24] MEDS ORDERED: ACETAMINOPHEN 500 MG TABLET PO ONE (22:45)
== END 2021-11-25 00:29 | disposition home or self-care (01) ==
LOC: EMS 20:07
DX: S22.42XA Multiple fractures of ribs, left side, initial encounter for closed fracture (principal); E11.9 Type 2 diabetes mellitus without complications; Z87.09 Personal history of other diseases of the respiratory system; Z86.69 Personal history of other diseases of the nervous system and sense organs; Z87.448 Personal history of other diseases of urinary system; Z87.898 Personal history of other specified conditions; Z98.890 Other specified postprocedural states; W01.0XXA Fall on same level from slipping, tripping and stumbling without subsequent striking against object, initial encounter; Y93.89 Activity, other specified; Y92.89 Other specified places as the place of occurrence of the external cause; Y99.8 Other external cause status
CPT/HCPCS: 71101; 99283; G0238

== ENCOUNTER 2021-12-27 20:32 | Emergency (ER) | payer MEDICARE, MEDICAID ==
[~2021-12-27] VITALS: Ht 170.2 cm; Wt 113.6 kg
[2021-12-27 21:06] LABS: EOSINOPHILS % (AUTO) 2.7 % (1.0-6.0); HEMATOCRIT 34.5 % (41-53); HEMOGLOBIN 10.5 g/dL (13.5-17.5); LYMPHOCYTES # (AUTO) 0.7 K/uL (1.0-4.8); LYMPHOCYTES % (AUTO) 11.4 % (22.0-44.0); MEAN CORPUSCULAR HEMOGLOBIN 28.9 pg (26.0-34.0); MEAN CORPUSCULAR HGB CONC 30.6 G/dL (31.0-37.0); MEAN CORPUSCULAR VOLUME 94 fL (80-100); MONOCYTES # (AUTO) 0.5 K/uL (0.1-1.0); MONOCYTES % (AUTO) 7.4 % (2.0-9.0); NEUTROPHILS % (AUTO) 77.5 % (40.0-70.0); PLATELET COUNT (AUTO) 105 K/uL (150-450); RED BLOOD CELL COUNT(AUTO) 3.65 MIL/uL (4.50-5.90); RED CELL DISTRIBUTION WIDTH 23.2 % (11.5-14.5)
[2021-12-27 21:16] LABS: CALCIUM, TOTAL 8.3 mg/dL (8.8-10.5); CREATININE 16.11 mg/dL (0.60-1.30); POTASSIUM 5.9 mmol/L (3.5-5.1)
[2021-12-27 21:21] LABS: ALBUMIN 2.8 g/dL (3.4-5.0); BILIRUBIN,TOTAL 0.6 mg/dL (0.1-1.0); TOTAL PROTEIN, SERUM 7.4 g/dL (6.4-8.2)
[2021-12-27] MEDS ORDERED: SODIUM POLYSTYRENE SULFONATE 15 GM/60 ML SUSPENSION BOTTLE PO ONE (21:30)
[2021-12-27] MEDS ORDERED: HYDROCODONE/ACETAMINOPHEN 5-325 MG TABLET PO ONE (22:00)
[2021-12-27] MEDS ORDERED: HYDROmorphone 2 MG/ML VIAL IM ONE (22:30)
[2021-12-27] MEDS ORDERED: AMPICILLIN SODIUM/SULBACTAM NA 1.5 GM in SODIUM CHLORIDE 0.9% 50 ML IV ONE (22:45)
[2021-12-28] MEDS ORDERED: CEPH-558 PO (00:18)
[2021-12-28] MEDS ORDERED: NYST30OI6 TP (00:18)
[2021-12-28 00:43] VITALS: BP 145/75
== END 2021-12-28 01:10 | disposition home or self-care (01) ==
LOC: EMS 20:34
DX: L98.491 Non-pressure chronic ulcer of skin of other sites limited to breakdown of skin (principal); K61.1 Rectal abscess; L03.317 Cellulitis of buttock; E87.5 Hyperkalemia; E11.9 Type 2 diabetes mellitus without complications; N18.6 End stage renal disease; Z99.2 Dependence on renal dialysis; Z87.09 Personal history of other diseases of the respiratory system; Z86.69 Personal history of other diseases of the nervous system and sense organs; Z98.890 Other specified postprocedural states
CPT/HCPCS: 36415; 71045; 74176; 80053; 83880; 84484; 85025; 87040; 93005; 96365; 96372; 99285; J0295; J1170; J7050